=== PATIENT | male | born 1985 | race Caucasian/White ===

== ENCOUNTER 2016-12-20 12:36 | Emergency (ER) | payer MEDICAID ==
[~2016-12-20] VITALS: Ht 172.7 cm; Wt 81.6 kg
[~2016-12-20 12:36] MED LIST: IBUP-1724 PO
--- OUTSIDE RECORDS SUMMARY | 2016-12-20 12:41 | XMS REPORT | Continuity of Care Document ---
Author Author [facility] Organization [facility] Address Unknown Phone Unavailable Care Team Providers Care Instructional Design Technologist Name Role Phone Unknown, Unknown Primary Care Physician Unavailable Source Comments Some departments are not documenting in the electronic medical record. If you do not see the information that you expected, contact Release of Information in the Health Information Management department at [phone] for further assistance in locating additional records.[facility] Active Allergies and Adverse Reactions Allergen Noted Date Severity Reactions Comments Amoxicillin 12/09/2014 Low STOMACH UPSET Current Medications Prescription Sig. Disp. Refills Start End Date Status Date RANITIDINE HCL (ZANTAC Take by mouth. Active PO) ALLOPURINOL PO Take by mouth. 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 Social History Tobacco Use Types Packs/Day Years Used Date Heavy Tobacco Smoker Cigarettes 1.5 14 Tobacco Cessation: Ready to Quit: Yes Comments: Alcohol Use Drinks/Week oz/Week Comments No Last Filed Vital Signs Vital Sign Reading Time Taken Blood Pressure 127/70 03/06/2015 2:55 PM CDT Pulse 72 03/06/2015 2:55 PM CDT Temperature 36.6 C (97.9 F) 03/06/2015 2:55 PM CDT Respiratory Rate 16 03/06/2015 2:55 PM CDT Height 1.702 m (5' 7.01") 03/06/2015 2:55 PM CDT Weight 74.299 kg (163 lb 12.8 03/06/2015 2:55 PM CDT oz) Body Mass Index 25.65 03/06/2015 2:55 PM CDT Oxygen Saturation 100% 03/06/2015 2:55 PM CDT Plan of Care Health Maintenance Due Date Last Done Comments Physical (Comprehensive) 1994 Exam Pertussis Vaccine 1998 Tetanus Vaccine 2004 Influenza Vaccine 05/20/2017 Results from Last 3 Months Not on file
--- OUTSIDE RECORDS SUMMARY | 2016-12-20 12:41 | XMS REPORT | Continuity of Care Document ---
Author Author [facility] Address Unknown Phone Unavailable Care Team Providers Care Fabrication Welder Name Role Phone [employer] Unavailable Unavailable Problems Problem Status Onset Date Classification Date Reported Comments Source Bradycardia (disorder) Active 11/05/2013 Problem 2013 [facility]iology Services, [facility], [facility]. Deep venous thrombosis (disorder) Active Problem 2013 [facility] Services, [facility], [facility]. 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. Polysubstance abuse (disorder) Active Problem 11/09/2013 Cardiology Services, [facility], [facility]. Superior vena cava syndrome (disorder) Active Problem [facility] Services, [facility], [facility]. Medications Allergies, Adverse Reactions, Alerts Substance Category Reaction Severity Reaction type Status Date Reported Comments Source NKA drug allergy Allergy Active [facility], [facility], [facility]. Immunizations Results Vital Signs Encounters Location Location Details Encounter Type Encounter Number Reason For Visit Attending Provider ADM Date DC Date Status Source [facility] [id number] Inpatient [id number] Jayce Krishnamurthyid 10/26/2013 11/16/2013 Active [facility], [facility]. [facility] [id number] Clinic ( Outpatient) [id number] . [facility] 11/05/2013 [facility] Procedures Plan of Care Social History Assessment and Plan Family History Value Date Source Advance Directives Order Name Results Value Date Source
--- OUTSIDE RECORDS SUMMARY | 2016-12-20 12:41 | XMS REPORT | Continuity of Care Document ---
Author Author [facility] Organization [facility] Address Unknown Phone Unavailable Support Name Relationship Address Phone SAFIA ESPINO MD Caregiver [address] [place] [address] [place] [address] AMY JOHNSON MD Caregiver [address] [place] [address] [place] [phone] JAVID ARROYO Next Of Kin [address] [place] [address] NOK* Insurance Providers Payer Name Policy Number Subscriber Name Relationship [facility] [id number] Pato Candelaria 20 Self Advance Directives Directive Response Recorded Date/Time Advanced Directives Type None 02/27/14 4:45pm Ordered Resuscitation Status Full Code 04/10/14 12:48pm Chief Complaint and Reason for Visit Chief Complaint CHEST PAIN Reason for Visit Chest pain Chest pain Chest pain Non-Hodgkin lymphoma Deep vein thrombosis (DVT) Superior vena cava syndrome Methamphetamine abuse Inadequate anticoagulation Problems Medical Problems Problem Onset Date Status Infected dental carries Unknown Active Nausea & vomiting Unknown Active Nausea & vomiting Unknown Active Nausea & vomiting Unknown Active Hypokalemia Unknown Active Nausea & vomiting Unknown Active Leg cramps Unknown Active Leg cramps Unknown Active Chest pain Unknown Active Chest pain Unknown Active Chest pain Unknown Active Non-Hodgkin lymphoma Unknown Active Deep vein thrombosis (DVT) Unknown Active Superior vena cava syndrome Unknown Active Methamphetamine abuse Unknown Active Inadequate anticoagulation Unknown Active Medications Medication Dose Route Sig Days/Qty Instructions Order Date Discontinued Date Status Miscellaneous Information 07/16/12 11/22/13 Discontinued Warfarin Sodium 5 Mg PO DAILY 11/22/13 04/10/14 Discontinued Sertraline Hcl 50 Mg PO DAILY 01/05/14 Active Warfarin Sodium 7.5 Mg PO EVERY OTHER DAY 04/09/14 04/10/14 Discontinued Warfarin Sodium 5 Mg PO 04/10/14 Active Social History Social History Problem Response Recorded Date/Time Smoking Status Current every day smoker 02/27/2014 4:45pm When did patient START smoking? started smoking at age 16 04/10/2014 1:13am When did patient STOP smoking? still smoking 04/10/2014 1:13am Chewing Tobacco Status No 02/13/2014 10:15pm Hx Substance Use Y LAST USED 11/22/12, "MOSTLY METH" 04/10/2014 12:01am Hx Alcohol Use Y OCC 04/10/2014 12:01am Has the pt used tobacco in the last 12 months Yes 04/10/2014 1:13am Query Response Start Date Stop Date Smoking Status Former smoker Hospital Discharge Instructions Instructions: Care Instructions: Reason for Hospitalization: Chest Pain I was in the hospital because (patient own words): "chest pain" Discharge Diet: Regular Discharge Activity: As tolerated Follow Up Appointments: INR on Tuesday04/15/14-Results to Dr Martins DX: Medication use, Iatrogenic coagulopathy Dr Glass as schedualed Condition at time of discharge: Good Care Plan Discharge Patient: Goal: Understand discharge plan Patient Instructions: see patient instructions Care Plan Discharge Patient: Patient Instructions: see patient instructions 1.Clear dressing is to remain in place for 2 weeks. 2.Do not pick at it or scrub it while showering. 3.If the dressing begins to pull up, secure it with 4x4 gauze pad and tape. 4.You may shower; however, do not submerge yourself in water until the incision is completely healed. Mepilex 1.Dressing to remain in place until your follow up appointment. 2.If this dressing starts peeling up slightly, it may be reinforced, if it peels excessively, notify your surgeon's office. 3.You may shower with the dressing in place, but do not submerge in water 4.Do not allow water to seep under the dressing, if it should seep under, remove the dressing and notify your surgeon. Notify Physician If: Call your Surgeon if you have: 1.Chest pain, difficulty breathing, fever>100.5 degrees, chills, heart rate >100, confusion, or persistent nausea/vomitting. 2.Severe pain, swelling, redness, or warmth in either of your legs. 3.During office hours, call [phone] 4. After hours, please call [facility] at [phone], and have the liquid hydrogen plant operator page your Surgeon IN THE EVENT OF AN EMERGENCY, seek medical care at the nearest Emergency Room Condition at time of discharge: Good Condition at time of discharge: Good Plan of Care Discharge Date 04/10/14 7:00pm Disposition 01 DISCHARGED HOME, SELF-CARE Instructions/Education Provided Angina Prescriptions See Medications Section Functional Status Query Response Date Recorded Physical Hygiene Self April 10, 2014 6:04pm Disabilities None April 10, 2014 6:04pm Devices Used None April 10, 2014 6:04pm Dressing Self April 10, 2014 6:04pm Ambulation Self April 10, 2014 6:04pm Diet Self April 10, 2014 6:04pm Mental Status Alert Oriented April 10, 2014 6:04pm Disabilities None April 10, 2014 6:04pm Devices Used None April 10, 2014 6:04pm Physical Hygiene Self April 10, 2014 6:04pm Dressing Self April 10, 2014 6:04pm Ambulation Self April 10, 2014 6:04pm Diet Self April 10, 2014 6:04pm Allergies, Adverse Reactions, Alerts Allergen Type Severity Reaction Status Last Updated Nickel Allergy Mild RASH Active 04/10/14 Immunizations Name Given Type Hx Influenza Vaccination No Historical Hx Pneumococcal Vaccination No Historical Hx Tetanus, Diptheria, Pertussis No Historical Hx Influenza Vaccination No Historical Hx Tetanus Diptheria No Historical Hx Tetanus, Diptheria, Pertussis No Historical Vital Signs Acute Vital Signs Vital Response Date/Time Temperature (Fahrenheit) 96.8 deg F (96.8 - 99.1) Pulse Rate (adult) 80 bpm (60 - 100) Respiratory Rate 16 breaths/min (10 - 20) Height 5 ft 8 in Weight 154 lb Body Mass Index 23.0 kg/m^2 Results Test Source Date Result Interp. Ref. Range Comments Activated Partial Thromboplast Time April 10, 2014 12:08am 33.5 SEC N 24- 36 Alanine Aminotransferase (ALT/SGPT) April 10, 2014 12:08am 35 U/L N 21- 72 Albumin April 10, 2014 12:08am 3.6 G/DL N 3.5-5.0 Albumin/Globulin Ratio April 10, 2014 12:08am 1.5 RATIO N 1.1-2.2 Alkaline Phosphatase April 10, 2014 12:08am 72 U/L N 38-126 Anion Gap April 10, 2014 12:08am 11 MEQ/L N 5-15 Anisocytosis December 05, 2013 9:10am 1+ - Aspartate Amino Transf (AST/SGOT) April 10, 2014 12:08am 19 U/L N 17-59 BUN/Creatinine Ratio April 10, 2014 12:08am 13 RATIO N 6-26 Band Neutrophils # February 13, 2014 10:57pm 0.5 T/MM3 - Band Neutrophils % February 13, 2014 10:57pm 8.0 % H 0-6 Basophils # (Auto) April 10, 2014 12:08am 0.0 T/MM3 N 0-0.2 Basophils # (Manual) December 28, 2013 9:39am 0.1 T/MM3 N 0-0.2 Basophils % (Manual) December 28, 2013 9:39am 1.0 % N 0-2 Basophils (%) (Auto) April 10, 2014 12:08am 0.7 % N 0-2 Blood Urea Nitrogen April 10, 2014 12:08am 10.0 MG/DL N 9-20 Calcium Level April 10, 2014 12:08am 8.8 MG/DL N 8.4-10.2 Calculated Osmolality April 10, 2014 12:08am 273 MOSM/KG N 261-280 Carbon Dioxide Level April 10, 2014 12:08am 28 MEQ/L N 22-30 Chloride Level April 10, 2014 12:08am 103 MEQ/L N 98-107 Cholesterol Level April 06, 2013 5:30pm 175 MG/DL N 132-199 Cholesterol/HDL Ratio April 06, 2013 5:30pm 3.5 RATIO N 0-5.0 Creatinine April 10, 2014 12:08am 0.8 MG/DL N 0.8-1.5 D-Dimer April 09, 2014 5:57pm 36 NG/ML N 0-230 <224 NG/ML=PRESUMPTIVE NEGATIVE FOR PE OR DVT>224 NG/ML=ADDITIONAL EVALUATION FOR PE OR DVT RECOMMENDED Eosinophils # (Auto) April 10, 2014 12:08am 0.5 T/MM3 N 0-0.5 Eosinophils # (Manual) February 13, 2014 10:57pm 0.2 T/MM3 N 0-0.5 Eosinophils % (Manual) February 13, 2014 10:57pm 3.0 % N 0-4 Eosinophils (%) (Auto) April 10, 2014 12:08am 9.8 % H 0-4 Globulin April 10, 2014 12:08am 2.4 G/DL N 2.4-3.6 Glucose Level April 10, 2014 12:08am 115 MG/DL H 75-110 Hematocrit April 10, 2014 12:08am 41.2 % N 41-53 Hemoglobin April 10, 2014 12:08am 14.3 GM/DL N 13.5-17.5 LDL Cholesterol, Calculated April 06, 2013 5:30pm 112.6 N 66-159 Lactate Dehydrogenase March 20, 2014 2:45pm 440 U/L N 313-618 Lipase April 09, 2014 5:57pm 70 U/L N 23-300 Lymphocytes # (Auto) April 10, 2014 12:08am 0.5 T/MM3 L 1-4.8 Lymphocytes # (Manual) February 13, 2014 10:57pm 0.1 T/MM3 L 1-4.8 Lymphocytes % (Manual) February 13, 2014 10:57pm 2.0 % L 23-45 Lymphocytes (%) (Auto) April 10, 2014 12:08am 11.7 % L 23-45 Magnesium Level March 20, 2014 2:45pm 2.0 MG/DL N 1.6-2.3 Mean Corpuscular Hemoglobin April 10, 2014 12:08am 32.4 UUG N 26-34 Mean Corpuscular Hemoglobin Concent April 10, 2014 12:08am 34.7 GM/DL N 31-37 Mean Corpuscular Volume April 10, 2014 12:08am 93.2 UM3 N 80-100 Mean Platelet Volume April 10, 2014 12:08am 9.2 UM3 L 9.4-12.4 Metamyelocytes # December 28, 2013 9:39am 0.2 T/MM3 - Metamyelocytes % December 28, 2013 9:39am 2.0 % H 0-0 Monocytes # (Auto) April 10, 2014 12:08am 0.8 T/MM3 N 0-0.8 Monocytes # (Manual) February 13, 2014 10:57pm 0.2 T/MM3 N 0-0.8 Monocytes % (Manual) February 13, 2014 10:57pm 3.0 % N 0-9.0 Monocytes (%) (Auto) April 10, 2014 12:08am 18.3 % H 0-9.0 Myelocytes # December 28, 2013 9:39am 0.1 T/MM3 - Myelocytes % December 28, 2013 9:39am 1.0 % H 0-0 Neutrophils # (Auto) April 10, 2014 12:08am 2.7 T/MM3 N 1.8-7.7 Neutrophils # (Manual) February 13, 2014 10:57pm 5.5 T/MM3 N 1.8-7.7 Neutrophils % (Manual) February 13, 2014 10:57pm 84.0 % H 33-66 Neutrophils (%) (Auto) April 10, 2014 12:08am 59.3 % N 33-66 Platelet Count April 10, 2014 12:08am 272 T/MM3 N 130-400 Potassium Level April 10, 2014 12:08am 3.4 MEQ/L L 3.6-5 Prothromb Time International Ratio April 10, 2014 12:08am 1.42 H 0.81- 1.09 THERAPUTIC RANGE=2.00-3.00 FOR ANTI-THROMBOSIS THERAPUTIC RANGE=2.50- 3.50 FOR IMPLANTED VALVE RDW Standard Deviation April 10, 2014 12:08am 44.9 FL N 36.9-50.2 Red Blood Count April 10, 2014 12:08am 4.42 M/MM3 L 4.50-5.90 Sodium Level April 10, 2014 12:08am 142 MEQ/L N 134-144 Total Bilirubin April 10, 2014 12:08am 0.40 MG/DL N 0.20-1.30 Total Protein April 10, 2014 12:08am 6.0 G/DL L 6.3-8.2 Triglycerides Level April 06, 2013 5:30pm 62 MG/DL N 40-160 Troponin I April 10, 2014 11:45am 0.087 ng/ml N 0-0.12 Uric Acid March 20, 2014 2:45pm 6.2 MG/DL N 3.5-8.5 Urine Bacteria February 27, 2014 3:45pm None seen - Has specimen been collected/obtained? Y Urine Bilirubin February 27, 2014 3:45pm Negative - Has specimen been collected/obtained? Y Urine Blood February 27, 2014 3:45pm Negative - Has specimen been collected/obtained? Y Urine Collection Type February 27, 2014 3:45pm Voided-not cc-midstr - Has specimen been collected/obtained? Y Urine Color February 27, 2014 3:45pm Yellow - Has specimen been collected /obtained? Y Urine Glucose (UA) February 27, 2014 3:45pm Negative - Has specimen been collected/obtained? Y Urine Ketones February 27, 2014 3:45pm Negative - Has specimen been collected/obtained? Y Urine Leukocyte Esterase February 27, 2014 3:45pm Negative - Has specimen been collected/obtained? Y Urine Nitrite February 27, 2014 3:45pm Negative - Has specimen been collected/obtained? Y Urine Protein February 27, 2014 3:45pm Negative - Has specimen been collected/obtained? Y Urine RBC February 27, 2014 3:45pm None seen /HPF - Has specimen been collected/obtained? Y Urine Specific [place] February 27, 2014 3:45pm >=1.030 H - Has specimen been collected/obtained? Y Urine Turbidity February 27, 2014 3:45pm Clear - Has specimen been collected/obtained? Y Urine Urobilinogen February 27, 2014 3:45pm 0.2 EU/DL - Has specimen been collected/obtained? Y Urine WBC February 27, 2014 3:45pm None seen /HPF - Has specimen been collected/obtained? Y Urine pH February 27, 2014 3:45pm 6.0 - Has specimen been collected/ obtained? Y VLDL Cholesterol April 06, 2013 5:30pm 12.4 MG/DL N 0-28 White Blood Count April 10, 2014 12:08am 4.6 T/MM3 N 4.5-11.0 Chemistry Specimen Hemolysis April 10, 2014 11:45am < 15 0-25 0-25: No Hemolysis.26-70: Slight Hemolysis - can falsely elevate K and Urine Protein. 71-285: Moderate Hemolysis - can falsely elevate K, Troponin I, CA 19-9, PTH, CSF GLucose, and Urine Protein, and can falsely decrease Phenytoin. 286-999: Gross Hemolysis - can falsely elevate K, Troponin I, CA 19-9, PTH, CSF Glucose, and Urine Protine, and can falsely decrease Phenytoin. Recommend specimen recollection. Urinalysis Comment February 13, 2014 11:13pm Microscopic not ind. - Has specimen been collected/obtained? Y Lab Scanned Report March 20, 2014 9:16pm LAB TEST FORM REQUEST [id number] - HDL Cholesterol Direct April 06, 2013 5:30pm 50 MG/DL N 40-60 Turbidity April 10, 2014 12:08am < 20 0-20 Glomerular Filtration Rate Calc April 10, 2014 12:08am 117 - Immature Granulocyte # (Auto) April 10, 2014 12:08am 0.01 T/MM3 N 0.00- 0.03 Immature Granulocyte % (Auto) April 10, 2014 12:08am 0.2 % N 0.0-0.5 Venous Blood Lactate January 19, 2014 1:45am 0.8 MMOL/L N 0.6-2.2 Icterus Index April 10, 2014 12:08am < 2 0-7 [id number]-Ugb-Z-Type Natriuretic Peptide April 10, 2014 12:08am 48 PG/ML N 0- 175 Rule in cut points: <50 years old=450; 50-75 years old=900; >75 years old=1800; When utilizing ProBNP rule-in cut points, adjustment for impaired renal function is typically not required. Blood Culture Blood January 19, 2014 1:45am NO GROWTH AFTER 5 DAYS Name: PATO CANDELARIA Unit #: [id number] : 1985 Sex: M Loc / Svc: SRG DOS: 04/09/14 Signed Report #: [id number] DIAGNOSTIC IMAGING REPORT TYPE OF EXAM: CHEST 1 VIEW Dictated By: NEIL ANGULO MD INDICATION: ITS.REASON: CHEST PAIN CHEST 1 VIEW: Comparison: CT chest abdomen and pelvis dated April 08, 2014 and chest x-ray dated February 13, 2014 FINDINGS: The lungs are clear. There is no abnormal airspace opacity, pleural effusion or pneumothorax identified. The heart size, pulmonary vasculature and mediastinum are within normal limits. SVC stent. Right subclavian central venous catheter remains in place. No significant skeletal abnormality is seen. IMPRESSION: No acute cardiopulmonary abnormality. . Procedures Procedure Status Date Provider(s) DRAW BLOOD OFF VENOUS DEVICE completed 04/09/14 AMY JOHNSON MD Encounters Encounter Location Date/Time Discharged Inpatient [facility] 04/10/14 12:20am Departed Emergency Room [facility] 04/09/14 5:30pm Registered Clinic [facility] 04/08/14 7:59am Discharged Recurring [facility] 03/20/14 2:10pm Registered Clinic [facility] 03/18/14 12:52pm Departed Clinic [facility] 02/27/14 2:40pm Registered Clinic [facility] 02/21/14 2:14pm Registered Clinic [facility] 02/14/14 1:32pm Departed Emergency Room [facility] 02/13/14 10:07pm Registered Clinic [facility] 02/10/14 9:24pm Registered Clinic [facility] 02/06/14 4:51pm Registered Clinic [facility] 02/05/14 8:19am Discharged Recurring [facility] 01/16/14 9:36am Discharged Recurring [facility] 12/14/13 9:29am Recent Diagnosis Chest pain Chest pain Chest pain Non-Hodgkin lymphoma Deep vein thrombosis (DVT) Superior vena cava syndrome Methamphetamine abuse Inadequate anticoagulation
--- OUTSIDE RECORDS SUMMARY | 2016-12-20 12:41 | XMS REPORT | Referral Summary ---
Author Author [facility] Organization [facility] Address Unknown Phone Unavailable Care Team Providers Care Keyboard Specialist Name Role Phone No PCP, States Primary Care Physician [phone] Encounter VC Date(s): 07/27/16 - 07/27/16 [facility] [address] [place] [address] FELICIA Samuel [address] Discharge Diagnosis: History of lymphoma Discharge Disposition: 01-Home or Self Care Attending Physician: Rolly Dean MD Admitting Physician: Rolly Dean MD Referring Physician: Amol Reese MD Vital Signs Most recent to 1 oldest [Reference Range]: Temperature Tympanic 36.6 degC [36.6-38.1 degC] (07/27/16 1:04 PM) Blood Pressure 114/80 mmHg [90-140/60-90 mmHg] (07/27/16 1:04 PM) Problem List Condition Effective Dates Status Health Status Informant Lymphoma, large Active cell(Confirmed) Allergies, Adverse Reactions, Alerts No Known Allergies Medications No Known Medications Results No data available for this section Immunizations No data available for this section Procedures Procedure Date Related Diagnosis Body Site Insertion of Port-a-cath Social History Social History Type Response Smoking Status Current every day smoker Assessment and Plan Extracted from: Title: Office Visit Note Author: Rolly Dean MD Date: 07/27/16 Assessment/Plan 1.History of lymphoma Ordered: Office Visit Level 4 New [address] Plan: Explantation/removal [id number] I did review the patient's chart including office note performed by his oncologist fromJuly 14, 2016. I informed the patient that I would recommend at this point timescheduling him for removal of his power port catheter. I did discusswhat this procedure would entail and its associated risk which included but was not inclusive ofbleeding and/or infection. Patient understood and was scheduled.
--- OUTSIDE RECORDS SUMMARY | 2016-12-20 12:41 | XMS REPORT | Continuity of Care Document ---
Author Author [facility] Organization [facility] Address Unknown Phone Unavailable Allergies Medications Problems Date Dx Coded Attending Type Code Diagnosis Diagnosed By 06/03/2015 Amol Reese MD, I Final 202.80 OTHER MALIGNANT LYMPHOMAS, UNSPECIFIED SITE, EXTRANODAL AND SOLID ORGAN SIT 06/03/2015 Amol Reese MD, I Final 429.3 CARDIOMEGALY 06/03/2015 Amol Reese MD, I Final 794.2 NONSPECIFIC ABNORMAL RESULTS OF FUNCTION STUDY OF PULMONARY SYSTEM 06/03/2015 Amol Reese MD, I Final V59.02 STEM CELL DONOR 06/03/2015 Amol Reese MD, I Reason V72.81 PREOPERATIVE CARDIOVASCULAR EXAMINATION 06/03/2015 Amol Reese MD, I Final V72.82 PREOPERATIVE RESPIRATORY EXAMINATION 06/03/2015 Amol Reese MD, I Final V72.83 OTHER SPECIFIED PREOPERATIVE EXAMINATION Procedures Results Encounters ACCT No. Visit Date/Time Discharge Status Pt. Type Provider Facility Loc./Unit Complaint [id number] 05/30/2015 07:27:00 2014 23:59:00 DIS Outpatient Amol Reese MD, I [facility] Diag Rad Non Hodgkins Lymphoma 202.80
--- OUTSIDE RECORDS SUMMARY | 2016-12-20 12:42 | XMS REPORT | Continuity of Care Document ---
Author Author [facility] Organization [facility] Address Unknown Phone Unavailable Support Name Relationship Address Phone SHABANA PEREA MD Caregiver [address] [place] [address] [place] [address] AMY JOHNSON MD Caregiver [address] [place] [address] [place] [phone] JAVID ARROYO Next Of Kin [address] [place] [address] NOK* Insurance Providers Payer Name Policy Number Subscriber Name [id number] Pato Candelaria 20 Self Advance Directives Directive Response Recorded Date/Time Advanced Directives Type None 02/27/14 4:45pm Problems Medical Problems Problem Onset Date Status Infected dental carries Unknown Active Nausea & vomiting Unknown Active Nausea & vomiting Unknown Active Nausea & vomiting Unknown Active Hypokalemia Unknown Active Nausea & vomiting Unknown Active Leg cramps Unknown Active Leg cramps Unknown Active Medications Medication Dose Route Sig Days/Qty Instructions Order Date Discontinued Date Status Miscellaneous Information 07/16/12 11/22/13 Discontinued Warfarin Sodium 5 Mg PO DAILY 11/22/13 Active Sertraline Hcl 50 Mg PO 01/05/14 Active Warfarin Sodium 7.5 Mg PO EVERY OTHER DAY 04/09/14 Active Social History Social History Problem Response Recorded Date/Time Smoking Status Current every day smoker 02/27/2014 4:45pm Chewing Tobacco Status No 02/13/2014 10:15pm Hx Substance Use Y LAST USED 11/22/12, "MOSTLY METH" 04/09/2014 5:57pm Hx Alcohol Use Y OCC 04/09/2014 5:57pm Has the pt used tobacco in the last 12 months Yes 02/27/2014 4:45pm Query Response Start Date Stop Date Smoking Status Former smoker Hospital Discharge Instructions No hospital discharge instructions. Plan of Care No plan of care. Functional Status Query Response Date Recorded Physical Hygiene Self April 09, 2014 5:57pm Disabilities None April 09, 2014 5:57pm Devices Used None April 09, 2014 5:57pm Dressing Self April 09, 2014 5:57pm Ambulation Self April 09, 2014 5:57pm Diet Self April 09, 2014 5:57pm Mental Status Alert April 09, 2014 5:57pm Disabilities None April 09, 2014 5:57pm Devices Used None April 09, 2014 5:57pm Physical Hygiene Self April 09, 2014 5:57pm Dressing Self April 09, 2014 5:57pm Ambulation Self April 09, 2014 5:57pm Diet Self April 09, 2014 5:57pm Allergies, Adverse Reactions, Alerts Allergen Type Severity Reaction Status Last Updated No Known Allergies Active 04/09/14 Immunizations Name Given Type Hx Influenza Vaccination No Historical Hx Pneumococcal Vaccination No Historical Hx Tetanus, Diptheria, Pertussis No Historical Hx Influenza Vaccination No Historical Hx Tetanus Diptheria No Historical Hx Tetanus, Diptheria, Pertussis No Historical Vital Signs Acute Vital Signs Vital Response Date/Time Temperature (Fahrenheit) 96.4 deg F (96.8 - 99.1) Temperature (Calculated Celsius) 35.25373 degrees C (36.0 - 37.3) Pulse Rate (adult) 84 bpm (60 - 100) Respiratory Rate 16 breaths/min (10 - 20) O2 Sat by Pulse Oximetry 95 % (90 - 100) Blood Pressure 135/84 mm Hg Height 5 ft 8 in Weight 158 lb Body Mass Index 24.0 kg/m^2 Results Test Source Date Result Interp. Ref. Range Comments Activated Partial Thromboplast Time April 09, 2014 5:57pm 34.3 SEC N 24- 36 Alanine Aminotransferase (ALT/SGPT) April 09, 2014 5:57pm 33 U/L N 21-72 Albumin April 09, 2014 5:57pm 3.9 G/DL N 3.5-5.0 Albumin/Globulin Ratio April 09, 2014 5:57pm 1.6 RATIO N 1.1-2.2 Alkaline Phosphatase April 09, 2014 5:57pm 72 U/L N 38-126 Anion Gap April 09, 2014 5:57pm 12 MEQ/L N 5-15 Anisocytosis December 05, 2013 9:10am 1+ - Aspartate Amino Transf (AST/SGOT) April 09, 2014 5:57pm 21 U/L N 17-59 BUN/Creatinine Ratio April 09, 2014 5:57pm 11 RATIO N 6-26 Band Neutrophils # February 13, 2014 10:57pm 0.5 T/MM3 - Band Neutrophils % February 13, 2014 10:57pm 8.0 % H 0-6 Basophils # (Auto) April 09, 2014 5:57pm 0.0 T/MM3 N 0-0.2 Basophils # (Manual) December 28, 2013 9:39am 0.1 T/MM3 N 0-0.2 Basophils % (Manual) December 28, 2013 9:39am 1.0 % N 0-2 Basophils (%) (Auto) April 09, 2014 5:57pm 0.5 % N 0-2 Blood Urea Nitrogen April 09, 2014 5:57pm 8.0 MG/DL L 9-20 Calcium Level April 09, 2014 5:57pm 8.9 MG/DL N 8.4-10.2 Calculated Osmolality April 09, 2014 5:57pm 273 MOSM/KG N 261-280 Carbon Dioxide Level April 09, 2014 5:57pm 27 MEQ/L N 22-30 Chemistry Specimen Hemolysis April 09, 2014 5:57pm < 15 0-25 0-25: No Hemolysis.26-70: Slight [...] can falsely decrease Phenytoin. Recommend specimen recollection. Chloride Level April 09, 2014 5:57pm 103 MEQ/L N 98-107 Cholesterol Level April 06, 2013 5:30pm 175 MG/DL N 132-199 Cholesterol/HDL Ratio April 06, 2013 5:30pm 3.5 RATIO N 0-5.0 Creatinine April 09, 2014 5:57pm 0.7 MG/DL L 0.8-1.5 D-Dimer April 09, 2014 5:57pm 36 NG/ML N 0-230 <224 NG/ML=PRESUMPTIVE NEGATIVE FOR PE OR DVT>224 NG/ML=ADDITIONAL EVALUATION FOR PE OR DVT RECOMMENDED Eosinophils # (Auto) April 09, 2014 5:57pm 0.4 T/MM3 N 0-0.5 Eosinophils # (Manual) February 13, 2014 10:57pm 0.2 T/MM3 N 0-0.5 Eosinophils % (Manual) February 13, 2014 10:57pm 3.0 % N 0-4 Eosinophils (%) (Auto) April 09, 2014 5:57pm 10.2 % H 0-4 Globulin April 09, 2014 5:57pm 2.5 G/DL N 2.4-3.6 Glomerular Filtration Rate Calc April 09, 2014 5:57pm 136 - Glucose Level April 09, 2014 5:57pm 129 MG/DL H 75-110 HDL Cholesterol Direct April 06, 2013 5:30pm 50 MG/DL N 40-60 Hematocrit April 09, 2014 5:57pm 42.5 % N 41-53 Hemoglobin April 09, 2014 5:57pm 14.9 GM/DL N 13.5-17.5 Icterus Index April 09, 2014 5:57pm < 2 0-7 Immature Granulocyte # (Auto) April 09, 2014 5:57pm 0.01 T/MM3 N 0.00- 0.03 Immature Granulocyte % (Auto) April 09, 2014 5:57pm 0.2 % N 0.0-0.5 LDL Cholesterol, Calculated April 06, 2013 5:30pm 112.6 N 66-159 Lab Scanned Report March 20, 2014 9:16pm LAB TEST FORM REQUEST [id number] - Lactate Dehydrogenase March 20, 2014 2:45pm 440 U/L N 313-618 Lipase April 09, 2014 5:57pm 70 U/L N 23-300 Lymphocytes # (Auto) April 09, 2014 5:57pm 0.8 T/MM3 L 1-4.8 Lymphocytes # (Manual) February 13, 2014 10:57pm 0.1 T/MM3 L 1-4.8 Lymphocytes % (Manual) February 13, 2014 10:57pm 2.0 % L 23-45 Lymphocytes (%) (Auto) April 09, 2014 5:57pm 17.8 % L 23-45 Magnesium Level March 20, 2014 2:45pm 2.0 MG/DL N 1.6-2.3 Mean Corpuscular Hemoglobin April 09, 2014 5:57pm 32.5 UUG N 26-34 Mean Corpuscular Hemoglobin Concent April 09, 2014 5:57pm 35.1 GM/DL N 31 -37 Mean Corpuscular Volume April 09, 2014 5:57pm 92.6 UM3 N 80-100 Mean Platelet Volume April 09, 2014 5:57pm 9.1 UM3 L 9.4-12.4 Metamyelocytes # December 28, 2013 9:39am 0.2 T/MM3 - Metamyelocytes % December 28, 2013 9:39am 2.0 % H 0-0 Monocytes # (Auto) April 09, 2014 5:57pm 0.6 T/MM3 N 0-0.8 Monocytes # (Manual) February 13, 2014 10:57pm 0.2 T/MM3 N 0-0.8 Monocytes % (Manual) February 13, 2014 10:57pm 3.0 % N 0-9.0 Monocytes (%) (Auto) April 09, 2014 5:57pm 14.5 % H 0-9.0 Myelocytes # December 28, 2013 9:39am 0.1 T/MM3 - Myelocytes % December 28, 2013 9:39am 1.0 % H 0-0 Neutrophils # (Auto) April 09, 2014 5:57pm 2.5 T/MM3 N 1.8-7.7 Neutrophils # (Manual) February 13, 2014 10:57pm 5.5 T/MM3 N 1.8-7.7 Neutrophils % (Manual) February 13, 2014 10:57pm 84.0 % H 33-66 Neutrophils (%) (Auto) April 09, 2014 5:57pm 56.8 % N 33-66 Platelet Count April 09, 2014 5:57pm 269 T/MM3 N 130-400 Potassium Level April 09, 2014 5:57pm 3.1 MEQ/L L 3.6-5 Prothromb Time International Ratio April 09, 2014 5:57pm 1.51 H 0.81- 1.09 THERAPUTIC RANGE=2.00-3.00 FOR ANTI-THROMBOSIS THERAPUTIC RANGE=2.50- 3.50 FOR IMPLANTED VALVE RDW Standard Deviation April 09, 2014 5:57pm 45.2 FL N 36.9-50.2 Red Blood Count April 09, 2014 5:57pm 4.59 M/MM3 N 4.50-5.90 Sodium Level April 09, 2014 5:57pm 142 MEQ/L N 134-144 Total Bilirubin April 09, 2014 5:57pm 0.40 MG/DL N 0.20-1.30 Total Protein April 09, 2014 5:57pm 6.4 G/DL N 6.3-8.2 Triglycerides Level April 06, 2013 5:30pm 62 MG/DL N 40-160 Troponin I April 09, 2014 5:57pm 0.059 ng/ml N 0-0.12 Turbidity April 09, 2014 5:57pm < 20 0-20 Uric Acid March 20, 2014 2:45pm 6.2 MG/DL N 3.5-8.5 Urinalysis Comment February 13, 2014 11:13pm Microscopic not ind. - Has specimen been collected/obtained? Y Urine Bacteria February 27, 2014 3:45pm None [...] Has specimen been collected/obtained? Y Urine Specific [place] February 27, 2014 3:45pm >=1.030 H - [...] 06, 2013 5:30pm 12.4 MG/DL N 0-28 Venous Blood Lactate January 19, 2014 1:45am 0.8 MMOL/L N 0.6-2.2 White Blood Count April 09, 2014 5:57pm 4.3 T/MM3 L 4.5-11.0 Blood Culture Blood January 19, 2014 1:45am NO GROWTH AFTER 5 DAYS Procedures Procedure Status Date Provider(s) THER/PROPH/DIAG INJ IV PUSH completed 01/19/14 TX/PRO/DX INJ NEW DRUG ADDON completed 01/19/14 HYDRATE IV INFUSION ADD-ON completed 01/19/14 DRAW BLOOD OFF VENOUS DEVICE completed 01/19/14 AMY JOHNSON MD Encounters Encounter Location Date/Time Departed Emergency Room [facility] 04/09/14 5:30pm Registered [facility] 04/08/14 7:59am Registered [facility] 03/20/14 2:10pm Registered [facility] 03/18/14 12:52pm Departed [facility] 02/27/14 2:40pm Registered [facility] 02/27/14 12:39pm Registered [facility] 02/21/14 2:14pm Registered [facility] 02/14/14 1:32pm Departed Emergency Room [facility] 02/13/14 10:07pm Registered [facility] 02/10/14 9:24pm Registered Clinic [facility] 02/06/14 4:51pm Registered Clinic [facility] 02/05/14 8:19am Registered [facility] 01/21/14 10:40am Departed Emergency Room [facility] 01/19/14 12:47am Departed Clinic [facility] 01/16/14 11:12am Discharged Recurring [facility] 12/14/13 9:29am Recent Diagnosis
--- OUTSIDE RECORDS SUMMARY | 2016-12-20 12:42 | XMS REPORT | Continuity of Care Document ---
Author Author [facility] Organization [facility] Address Unknown Phone Unavailable Support Name Relationship Address Phone SAFIA ESPINO MD Caregiver [address] [place] [address] [place] [address] AMY JOHNSON MD Caregiver [address] [place] [address] [place] [phone] JAVID ARROYO Next Of Kin [address] [place] [address] NOK* Insurance Providers Payer Name Policy Number [facility]scriber [id number] Pato Candelaria 20 Self Advance Directives Directive [...] discharge plan Patient Instructions: see patient instructions Discharge Patient: Goal: Other Patient Instructions: see patient instructions see patient instructions Understand discharge plan Patient Instructions: see patient instructions Increase cardio excercise Patient Instructions: see patient instructions 1.Chest pain, difficulty breathing, fever>100.5 degrees, chills, heart rate >100, confusion, or persistent nausea/vomitting. 2.Severe pain, swelling, redness, or warmth in either of your legs. 3.During office hours, call [phone] 4. After hours, please call [facility] at [phone], and have the press operator meat page your Surgeon IN THE EVENT OF AN EMERGENCY, seek medical care at the nearest Emergency Room Condition at time of discharge: Good Care Plan Discharge Patient: Goal: Maximum functional status Patient Instructions: see patient instructions Plan of Care Discharge Date 04/10/14 7:00pm [...] Has specimen been collected/obtained? Y Urine Specific [place] February 27, 2014 3:45pm >=1.030 H - [...] 20, 2014 9:16pm LAB TEST FORM REQUEST [id number] - HDL Cholesterol Direct April 06, 2013 [...] April 10, 2014 12:08am < 2 0-7 MI-Cvp-J-Type Natriuretic Peptide April 10, 2014 12:08am 48 PG/ML N 0- 175 Rule in cut points: <50 years old=450; 50-75 years old=900; >75 years old=1800; When utilizing ProBNP rule-in cut points, adjustment for impaired renal function is typically not required. Blood Culture Blood January 19, 2014 1:45am NO GROWTH AFTER 5 DAYS Name: PATO CANDELARIA Unit #: [id number] : 1985 Sex: M Loc / Svc: SRG DOS: 04/09/14 Signed Report #: [id number] DIAGNOSTIC IMAGING REPORT TYPE OF EXAM: CHEST [...] abnormality. . Procedures Procedure Status Date Provider(s) THER/PROPH/DIAG INJ IV PUSH completed 01/19/14 TX/PRO/DX INJ NEW DRUG ADDON completed 01/19/14 HYDRATE IV INFUSION ADD-ON completed 01/19/14 DRAW BLOOD OFF VENOUS DEVICE completed 01/19/14 AMY JOHNSON MD DRAW BLOOD OFF VENOUS DEVICE completed 04/09/14 AMY JOHNSON MD Encounters Encounter Location Date/Time Discharged Inpatient [facility] 04/10/14 12:20am Departed Emergency Room [facility] 04/09/14 5:30pm Registered [facility] 04/08/14 7:59am Registered [facility] 03/20/14 2:10pm Registered [facility] 03/18/14 12:52pm Departed [facility] 02/27/14 2:40pm Discharged Recurring [facility] 02/27/14 12:39pm Registered [facility] 02/21/14 2:14pm Registered [facility] 02/14/14 1:32pm Departed Emergency Room [facility] 02/13/14 10:07pm Registered [facility] 02/10/14 9:24pm Registered [facility] 02/06/14 4:51pm Registered Clinic [facility] 02/05/14 8:19am Registered Clinic [facility] 01/21/14 10:40am Departed Emergency Room [facility] 01/19/14 12:47am Departed Clinic [facility] 01/16/14 11:12am Discharged Recurring [facility] 12/14/13 9:29am Recent Diagnosis Chest pain Chest pain Chest pain Non-Hodgkin lymphoma Deep vein thrombosis (DVT) Superior vena cava syndrome Methamphetamine abuse Inadequate anticoagulation
--- OUTSIDE RECORDS SUMMARY | 2016-12-20 12:42 | XMS REPORT | Continuity of Care Document ---
Author Author [facility] Organization [facility] Address Unknown Phone Unavailable Support Name Relationship Address Phone ALLEGRA PAULO Tressa Caregiver [phone] [place] [phone] Insurance Providers Payer Name Policy Number Subscriber Name Relationship Devan Taylor Correct [employer] [id number] Pato Candelaria 20 Self [employer] [id number] Pato Candelaria 20 Self Advance Directives Directive [...] abuse Unknown Active Inadequate anticoagulation Unknown Active Portacath in place Unknown Active Portacath in place Unknown Active Atrial fibrillation, new onset Unknown Active Tobacco abuse Unknown Active Medications Medication Dose Route Sig Days/Qty Instructions Order Date Discontinued Date Status Miscellaneous Information 07/16/12 11/22/13 Discontinued Warfarin Sodium 5 Mg PO DAILY 11/22/13 04/10/14 Discontinued Sertraline Hcl 50 Mg PO DAILY 01/05/14 10/28/14 Discontinued Warfarin Sodium 7.5 Mg PO EVERY OTHER DAY 04/09/14 04/10/14 Discontinued Warfarin Sodium 5 Mg PO 04/10/14 10/28/14 Discontinued Allopurinol 1 Tab PO DAILY 0 Qty 10/28/14 Active Aspirin 1 Tab PO DAILY 11/03/14 Active Social History Social History Problem Response Recorded Date/Time Chewing Tobacco Status No 02/13/2014 10:15pm Hx Substance Use Y LAST USED 11/22/12, "MOSTLY METH" 05/30/2014 11:47pm Hx Alcohol Use Y OCC 05/30/2014 11:47pm Has the pt used tobacco in the last 12 months Yes 11/03/2014 8:28pm Tobacco Usage smoke 11/01/2014 3:08pm Query Response Start Date Stop Date Smoking Status Current every day smoker Hospital Discharge Instructions Instructions: Care Instructions: Reason for Hospitalization: Cellulitis of right LW I was in the hospital because (patient own words): "I DON'T KNOW" Discharge Diet: no added salt Discharge Activity: As tolerated Follow Up Appointments: Dr Iqbal in 1 week CAMILO in 1 week Patient Instructions: Elevate LE when at rest Condition at time of discharge: Good Notify Physician If: Fever > 101 Breathlessness Severe pain in hip Fall Condition at time of discharge: Good Bilirubin Level: 12.2 Plan of Care Discharge Date 11/01/14 4:18pm Prescriptions See Medications Section Functional Status Query Response Date Recorded Physical Hygiene Self May 30, 2014 11:47pm Physical Hygiene Self May 30, 2014 11:47pm Allergies, Adverse Reactions, Alerts Allergen Type Severity Reaction Status Last Updated Nickel Allergy Mild RASH Active 11/03/14 Immunizations Name Given Type Hx Influenza Vaccination No Historical Hx Pneumococcal Vaccination No Historical Hx Tetanus, Diptheria, Pertussis No Historical Hx Influenza Vaccination No Historical Hx Tetanus Diptheria No Historical Hx Tetanus, Diptheria, Pertussis No Historical TST-PPD intradermal 10/30/14 Administered TST-PPD intradermal 10/30/14 Administered TST-PPD intradermal 10/30/14 Administered TST-PPD intradermal 10/30/14 Administered Vital Signs Acute Vital Signs Vital Response Date/Time Temperature (Fahrenheit) 98.2 deg F (96.8 - 99.1) Temperature (Calculated Celsius) 36.58470 degrees C (36.0 - 37.3) Pulse Rate (adult) 95 bpm (60 - 100) Respiratory Rate 16 breaths/min (10 - 20) O2 Sat by Pulse Oximetry 99 % (90 - 100) Oxygen Delivery Method Room Air Blood Pressure 129/80 mm Hg Blood Pressure Source Automatic Cuff Results Test Source Date Result Interp. Ref. Range Comments Activated Partial Thromboplast Time October 28, 2014 10:52am 36.2 SEC H 24-36 Alanine Aminotransferase (ALT/SGPT) November 21, 2014 9:15am 46 U/L N 21- 72 Albumin November 21, 2014 9:15am 4.2 G/DL N 3.5-5.0 Albumin/Globulin Ratio November 21, 2014 9:15am 1.6 RATIO N 1.1-2.2 Alkaline Phosphatase November 21, 2014 9:15am 65 U/L N 38-126 Anion Gap November 21, 2014 9:15am 14 MEQ/L N 5-15 Anisocytosis December 05, 2013 9:10am 1+ - Aspartate Amino Transf (AST/SGOT) November 21, 2014 9:15am 23 U/L N 17-59 BUN/Creatinine Ratio November 21, 2014 9:15am 17 RATIO N 6-26 Band Neutrophils # November 21, 2014 9:15am 0.5 T/MM3 - Band Neutrophils % November 21, 2014 9:15am 10.0 % H 0-6 Basophils # (Auto) October 31, 2014 1:56pm 0.0 T/MM3 N 0-0.2 Basophils # (Manual) November 19, 2014 1:50pm 0.1 T/MM3 N 0-0.2 Basophils % (Manual) November 19, 2014 1:50pm 1.0 % N 0-2 Basophils (%) (Auto) October 31, 2014 1:56pm 0.2 % N 0-2 Blood Urea Nitrogen November 21, 2014 9:15am 12.0 MG/DL DN 9-20 Calcium Level November 21, 2014 9:15am 9.2 MG/DL N 8.4-10.2 Calculated Osmolality November 21, 2014 9:15am 278 MOSM/KG N 261-280 Carbon Dioxide Level November 21, 2014 9:15am 26 MEQ/L N 22-30 Chemistry Specimen Hemolysis November 21, 2014 9:15am < 15 0-25 0-25: No Hemolysis.26-70: Slight [...] decrease Phenytoin. Recommend specimen recollection. Chloride Level November 21, 2014 9:15am 104 MEQ/L N 98-107 Cholesterol Level April 06, 2013 5:30pm 175 MG/DL N 132-199 Cholesterol/HDL Ratio April 06, 2013 5:30pm 3.5 RATIO N 0-5.0 Creatinine November 21, 2014 9:15am 0.7 MG/DL L 0.8-1.5 D-Dimer October 28, 2014 10:52am < 150 NG/ML 0-230 <230 NG/ML D-DU= PRESUMPTIVE NEGATIVE FOR PE OR DVT>230 NG/ML D-DU=ADDITIONAL EVAL FOR PE OR DVT RECOMMENDED Eosinophils # (Auto) October 31, 2014 1:56pm 0.0 T/MM3 N 0-0.5 Eosinophils # (Manual) November 19, 2014 1:50pm 0.1 T/MM3 N 0-0.5 Eosinophils % (Manual) November 19, 2014 1:50pm 1.0 % N 0-4 Eosinophils (%) (Auto) October 31, 2014 1:56pm 0.4 % N 0-4 Fibrinogen October 28, 2014 10:52am 274 MG/DL N 135-357 Globulin November 21, 2014 9:15am 2.6 G/DL N 2.4-3.6 Glomerular Filtration Rate Calc November 21, 2014 9:15am 135 - Glucose Level November 21, 2014 9:15am 122 MG/DL H 75-110 HDL Cholesterol Direct April 06, 2013 5:30pm 50 MG/DL N 40-60 Helicobacter pylori Antibodies November 04, 2014 2:10pm Negative - Hematocrit November 21, 2014 9:15am 39.3 % L 41-53 Hemoglobin November 21, 2014 9:15am 13.2 GM/DL L 13.5-17.5 Hepatitis B Core Total Antibody October 21, 2014 1:35pm Negative - Hepatitis B Core Ab Total performed at [facility], [address] [place] [address] Software Project Lead Aster Marvin DO Hepatitis B Surface Ab Concentrat October 21, 2014 1:35pm Negative - Hepatitis B Surface Antigen October 21, 2014 1:35pm Negative - Hepatitis C Antibody October 28, 2014 8:30am Negative - Hepatitis C RNA (PCR) log10 October 28, 2014 8:30am Not applicable - This test is for monitoring of HCV positive patients only andshould not be used as a screening test for HCV infection. Hepatitis C RNA performed at [facility], [address] [place] [address] Software Project Lead Aster Marvin DO Hepatitis C Viral RNA October 28, 2014 8:30am Not detected IU/mL - Icterus Index November 21, 2014 9:15am < 2 0-7 Immature Granulocyte # (Auto) October 31, 2014 1:56pm 0.02 T/MM3 N 0.00 -0.03 Immature Granulocyte % (Auto) October 31, 2014 1:56pm 0.2 % N 0.0-0.5 LDL Cholesterol, Calculated April 06, 2013 5:30pm 112.6 N 66-159 Lab Scanned Report November 19, 2014 3:16pm LAB TEST FORM REQUEST - Lactate Dehydrogenase November 21, 2014 9:15am 432 U/L N 313-618 Lipase April 09, 2014 5:57pm 70 U/L N 23-300 Lymphocytes # (Auto) October 31, 2014 1:56pm 0.7 T/MM3 L 1-4.8 Lymphocytes # (Manual) November 21, 2014 9:15am 1.0 T/MM3 N 1-4.8 Lymphocytes % (Manual) November 21, 2014 9:15am 21.0 % L 23-45 Lymphocytes (%) (Auto) October 31, 2014 1:56pm 7.4 % L 23-45 Magnesium Level November 21, 2014 9:15am 1.8 MG/DL N 1.6-2.3 Mean Corpuscular Hemoglobin November 21, 2014 9:15am 31.7 UUG N 26-34 Mean Corpuscular Hemoglobin Concent November 21, 2014 9:15am 33.6 GM/DL N 31-37 Mean Corpuscular Volume November 21, 2014 9:15am 94.5 UM3 N 80-100 Mean Platelet Volume November 21, 2014 9:15am 9.5 UM3 N 9.4-12.4 Metamyelocytes # December 28, 2013 9:39am 0.2 T/MM3 - Metamyelocytes % December 28, 2013 9:39am 2.0 % H 0-0 Monocytes # (Auto) October 31, 2014 1:56pm 0.8 T/MM3 N 0-0.8 Monocytes # (Manual) November 21, 2014 9:15am 0.6 T/MM3 N 0-0.8 Monocytes % (Manual) November 21, 2014 9:15am 12.0 % H 0-9.0 Monocytes (%) (Auto) October 31, 2014 1:56pm 8.4 % N 0-9.0 Myelocytes # December 28, 2013 9:39am 0.1 T/MM3 - Myelocytes % December 28, 2013 9:39am 1.0 % H 0-0 NP-Mlp-R-Type Natriuretic Peptide April 10, 2014 12:08am 48 PG/ML N 0- 175 Rule in cut points: <50 years old=450; 50-75 years old=900; >75 years old=1800; When utilizing ProBNP rule-in cut points, adjustment for impaired renal function is typically not required. Neutrophils # (Auto) October 31, 2014 1:56pm 8.3 T/MM3 H 1.8-7.7 Neutrophils # (Manual) November 21, 2014 9:15am 2.7 T/MM3 N 1.8-7.7 Neutrophils % (Manual) November 21, 2014 9:15am 56.0 % N 33-66 Neutrophils (%) (Auto) October 31, 2014 1:56pm 83.4 % H 33-66 Nucleated Red Blood Cells November 21, 2014 9:15am 1 - Platelet Count November 21, 2014 9:15am 240 T/MM3 N 130-400 Potassium Level November 21, 2014 9:15am 3.7 MEQ/L N 3.6-5 Prothromb Time International Ratio April 10, 2014 12:08am 1.42 H 0.81- 1.09 THERAPUTIC RANGE=2.00-3.00 FOR ANTI-THROMBOSIS THERAPUTIC RANGE=2.50- 3.50 FOR IMPLANTED VALVE RDW Standard Deviation November 21, 2014 9:15am 40.8 FL N 36.9-50.2 Reactive Lymphocytes # November 21, 2014 9:15am 0.0 T/MM3 N 0-0 Reactive Lymphocytes % November 21, 2014 9:15am 1.0 % H 0-0 Red Blood Count November 21, 2014 9:15am 4.16 M/MM3 L 4.50-5.90 Red Cell Morphology Comment November 21, 2014 9:15am Normal - Sodium Level November 21, 2014 9:15am 144 MEQ/L N 134-144 Total Bilirubin November 21, 2014 9:15am 0.20 MG/DL N 0.20-1.30 Total Protein November 21, 2014 9:15am 6.8 G/DL N 6.3-8.2 Triglycerides Level April 06, 2013 5:30pm 62 MG/DL N 40-160 Troponin I April 10, 2014 11:45am 0.087 ng/ml N 0-0.12 Turbidity November 21, 2014 9:15am < 20 0-20 Uric Acid November 21, 2014 9:15am 3.3 MG/DL L 3.5-8.5 Urinalysis Comment November 19, 2014 1:50pm Microscopic not ind. - Urine Bacteria February 27, 2014 3:45pm None seen - Has specimen been collected/obtained? Y Urine Bilirubin November 19, 2014 1:50pm Negative - Urine Blood November 19, 2014 1:50pm Negative - Urine Collection Type November 19, 2014 1:50pm - Urine Color November 19, 2014 1:50pm Yellow - Urine Glucose (UA) November 19, 2014 1:50pm Negative - Urine Ketones November 19, 2014 1:50pm Negative - Urine Leukocyte Esterase November 19, 2014 1:50pm Negative - Urine Nitrite November 19, 2014 1:50pm Negative - Urine Protein November 19, 2014 1:50pm Negative - Urine RBC February 27, 2014 3:45pm None seen /HPF - Has specimen been collected/obtained? Y Urine Specific [place] November 19, 2014 1:50pm 1.010 L - Urine Turbidity November 19, 2014 1:50pm Clear - Urine Urobilinogen November 19, 2014 1:50pm 0.2 EU/DL - Urine WBC February 27, 2014 3:45pm None seen /HPF - Has specimen been collected/obtained? Y Urine pH November 19, 2014 1:50pm 6.0 - VLDL Cholesterol April 06, 2013 5:30pm 12.4 MG/DL N 0-28 Venous Blood Lactate January 19, 2014 1:45am 0.8 MMOL/L N 0.6-2.2 White Blood Count November 21, 2014 9:15am 4.9 T/MM3 N 4.5-11.0 Blood Culture Blood January 19, 2014 1:45am NO GROWTH AFTER 5 DAYS Name: PATO CANDELARIA Unit #: [id number] : 1985 Sex: M Loc / Svc: KRYSTYNA DOS: 10/28/14 Signed Report #: [id number] DIAGNOSTIC IMAGING REPORT TYPE OF EXAM: CTA PULMONARY EMBOLI Dictated By: BLAYNE DIXON MD Indication: ITS.REASON: 786.30 HEMOPTYSIS;453.87 ACUTE VENOUS EMBOLISM;202.80 LYMPHOMA CTA PULMONARY EMBOLI: Comparison: Compared to the previous study dated September 2014. Technique: Axial CT pulmonary angiographic phase images were performed through the chest after the administration of intravenous contrast. Coronal MIP reformats Contrast: Omnipaque 350 100 mL Findings: Pulmonary arteries: There are no central pulmonary artery filling defects demonstrated to suggest pulmonary embolism. There is again noted to be enlarged low-density mass measuring 3.5 x 1.9 cm in maximum dimensions in the anterior right suprahilar region. This compares to the prior study measuring 1.9 x 3.1 cm when measured in a similar fashion and therefore stable. The mass is again noted to abut the right middle lobe pulmonary artery branch without evidence for invasion. Right-sided chest port in place. The catheter extends through the superior vena cava stent and to the right atrial region. No developing pulmonary masses or pleural effusions. No pneumothorax. Osseous structures are normal. No suspicious or destructive osseous lesions. Impression: 1. No evidence for pulmonary embolism. 2. Stable right suprahilar/right upper lobe mass when compared with the previous study. No developing pulmonary nausea or masses. . Procedures Procedure Status Date Provider(s) CT SOFT TISSUE NECK W/DYE completed 09/04/14 CT THORAX W/DYE completed 09/04/14 CT ABD & PELV W/CONTRAST completed 09/04/14466929"INJECTION, HEPARIN SODIUM, (HEPARIN LOCK FLUSH), PER completed 003"INFUSION, NORMAL SALINE SOLUTION , 250 CC" completed 09/04/14719695"LOW OSMOLAR CONTRAST MATERIAL, 200-299 MG/ML IODINE C completed 003"LOW OSMOLAR CONTRAST MATERIAL, 300-399 MG/ML IODINE C completed COMPREHEN METABOLIC PANEL completed 09/06/14 LACTATE (LD) (LDH) ENZYME completed 09/06/14 ASSAY OF MAGNESIUM completed 09/06/14 COMPLETE CBC W/AUTO DIFF WBC completed 09/06/14 PET IMAGE W/CT SKULL-THIGH completed 09/11/14 [id number]"FLUORODEOXYGLUCOSE F-18 FDG, DIAGNOSTIC, PER STUDY DO completed GATED HEART PLANAR SINGLE completed 10/07/14 TTE W/DOPPLER COMPLETE completed 10/07/14 [id number] completed 10/07/14 COMPREHEN METABOLIC PANEL completed 10/18/14 LACTATE (LD) (LDH) ENZYME completed 10/18/14 COMPLETE CBC W/AUTO DIFF WBC completed 10/18/14 CT THORAX W/DYE completed 10/18/14 CT ABD & PELV W/CONTRAST completed 10/18/14 [id number]"INJECTION, HEPARIN SODIUM, (HEPARIN LOCK FLUSH), PER completed [id number]"INFUSION, NORMAL SALINE SOLUTION , 250 CC" completed 10/18/14 [id number]"LOW OSMOLAR CONTRAST MATERIAL, 300-399 MG/ML IODINE C completed ROUTINE VENIPUNCTURE completed 10/28/14 CT ANGIOGRAPHY CHEST completed 10/28/14 FIBRIN DEGRADATION QUANT completed 10/28/14 FIBRINOGEN ACTIVITY completed 10/28/14 THROMBOPLASTIN TIME PARTIAL completed 10/28/14 [id number]"INJECTION, HEPARIN SODIUM, (HEPARIN LOCK FLUSH), PER completed [id number]"INFUSION, NORMAL SALINE SOLUTION , 250 CC" completed 10/28/14 [id number]"LOW OSMOLAR CONTRAST MATERIAL, 300-399 MG/ML IODINE C completed ROUTINE VENIPUNCTURE completed 10/31/14 COMPREHEN METABOLIC PANEL completed 10/31/14 LACTATE (LD) (LDH) ENZYME completed 10/31/14 ASSAY OF MAGNESIUM completed 10/31/14 ASSAY OF BLOOD/URIC ACID completed 10/31/14 BL SMEAR W/DIFF WBC COUNT completed 10/31/14 COMPLETE CBC AUTOMATED completed 10/31/14 ELECTROCARDIOGRAM TRACING completed 10/31/14 INITIAL OBSERVATION CARE completed 10/31/14 INITIAL OBSERVATION CARE completed 10/31/14 ELECTROCARDIOGRAM TRACING completed 11/13/14 Encounters Encounter Location Date/Time Registered [facility] 11/21/14 9:59am Discharged [facility] 11/14/14 11:45am Registered [facility] 11/13/14 3:59pm Discharged Inpatient [facility] 10/31/14 6:21pm Registered [facility] 10/29/14 11:00am Registered [facility] 10/28/14 10:38am Registered Clinic [facility] 10/18/14 11:53am Registered Clinic [facility] 10/18/14 10:26am Registered Clinic [facility] 10/07/14 6:54am Registered Clinic [facility] 09/11/14 7:06am Registered Clinic [facility] 09/06/14 11:04am Registered Clinic [facility] 09/04/14 10:13am
[2016-12-20 12:43] VITALS: Ht 172.7 cm; Wt 81.6 kg
--- OUTSIDE RECORDS SUMMARY | 2016-12-20 12:43 | XMS REPORT | Continuity of Care Document ---
Author Author [facility] Organization [facility] Address Unknown Phone Unavailable Support Name Relationship Address Phone PAULO DINH Caregiver [address] [place] [phone] BLAYNE CANDELARIA Next Of Kin Unknown [phone] Insurance Providers Payer Name Policy Number Subscriber Name Relationship [employer] [id number] Pato Candelaria 20 Self Advance Directives Directive [...] tobacco in the last 12 months Yes 11/28/2014 4:21pm Tobacco Usage smoke 11/01/2014 3:08pm Query Response Start Date Stop Date Smoking Status Current every day smoker Hospital Discharge Instructions Instructions: Care Instructions: Reason for Hospitalization: GENERALIZED WEAKNESS I was in the hospital because (patient own words): CAN'T MOVE MY LEGS, BARELY MOVE MY ARMS. Patient Instructions: You are being transferred to [facility] for further care that is not available at [place]. General Information: We hope you get better soon. Condition at time of discharge: Fair Good you develop fever, nausea/vomiting/diarrhea (dehydration), chest pain or difficulty breathing, altered mental status, or any new concerns. General Information: Avoid taking cscy-wjw-zkdekid gblyeb-pzao-trifdqjvai (ie. Prilosec "the little purple pill") and NSAIDS (ibuprofen, naproxen, aspirin) until Dr. Glass approves. Condition at time of discharge: Good General Information: n/a Condition at time of discharge: Good Pass Plan of Care Discharge Date 11/01/14 4:18pm [...] Vital Signs Vital Response Date/Time Temperature (Fahrenheit) 98.0 deg F (96.8 - 99.1) Temperature (Calculated Celsius) 36.53744 degrees C (36.0 - 37.3) Pulse Rate (adult) 68 bpm (60 - 100) Respiratory Rate 16 breaths/min (10 - 20) O2 Sat by Pulse Oximetry 99 % (90 - 100) Oxygen Delivery Method Room Air Blood Pressure 134/69 mm Hg Blood Pressure Source Automatic Cuff Results Test Source Date Result Interp. Ref. Range Comments Activated Partial Thromboplast Time December 12, 2014 10:15am 32.7 SEC N 24 -36 Alanine Aminotransferase (ALT/SGPT) December 16, 2014 1:40pm 40 U/L N 21- 72 Albumin December 16, 2014 1:40pm 4.1 G/DL N 3.5-5.0 Albumin/Globulin Ratio December 16, 2014 1:40pm 1.6 RATIO N 1.1-2.2 Alkaline Phosphatase December 16, 2014 1:40pm 58 U/L N 38-126 Anion Gap December 16, 2014 1:40pm 11 MEQ/L N 5-15 Anisocytosis December 05, 2013 9:10am 1+ - Aspartate Amino Transf (AST/SGOT) December 16, 2014 1:40pm 23 U/L N 17-59 BUN/Creatinine Ratio December 16, 2014 1:40pm 10 RATIO N 6-26 Band Neutrophils # December 02, 2014 9:43am 0.3 T/MM3 - Band Neutrophils % December 02, 2014 9:43am 24.0 % DH 0-6 Basophils # (Auto) December 16, 2014 1:40pm 0.0 T/MM3 N 0-0.2 Basophils # (Manual) November 19, 2014 1:50pm 0.1 T/MM3 N 0-0.2 Basophils % (Manual) November 19, 2014 1:50pm 1.0 % N 0-2 Basophils (%) (Auto) December 16, 2014 1:40pm 0.7 % N 0-2 Blood Urea Nitrogen December 16, 2014 1:40pm 7.0 MG/DL L 9-20 C-Reactive Protein November 22, 2014 2:25pm < 5.0 MG/L 0-9 Calcium Level December 16, 2014 1:40pm 9.3 MG/DL N 8.4-10.2 Calculated Osmolality December 16, 2014 1:40pm 277 MOSM/KG N 261-280 Carbon Dioxide Level December 16, 2014 1:40pm 28 MEQ/L N 22-30 Chemistry Specimen Hemolysis December 16, 2014 1:40pm < 15 0-25 0-25: No Hemolysis.26-70: Slight [...] decrease Phenytoin. Recommend specimen recollection. Chloride Level December 16, 2014 1:40pm 106 MEQ/L N 98-107 Cholesterol Level April 06, 2013 5:30pm 175 MG/DL N 132-199 Cholesterol/HDL Ratio April 06, 2013 5:30pm 3.5 RATIO N 0-5.0 Creatinine December 16, 2014 1:40pm 0.7 MG/DL L 0.8-1.5 D-Dimer October 28, 2014 10:52am < 150 NG/ML 0-230 <230 NG/ML D-DU= PRESUMPTIVE NEGATIVE FOR PE OR DVT>230 NG/ML D-DU=ADDITIONAL EVAL FOR PE OR DVT RECOMMENDED Eosinophils # (Auto) December 16, 2014 1:40pm 0.1 T/MM3 N 0-0.5 Eosinophils # (Manual) December 02, 2014 9:43am 0.0 T/MM3 N 0-0.5 Eosinophils % (Manual) December 02, 2014 9:43am 4.0 % N 0-4 Eosinophils (%) (Auto) December 16, 2014 1:40pm 1.7 % N 0-4 Fibrinogen October 28, 2014 10:52am 274 MG/DL N 135-357 Globulin December 16, 2014 1:40pm 2.5 G/DL N 2.4-3.6 Glomerular Filtration Rate Calc December 16, 2014 1:40pm 135 - Glucose Level December 16, 2014 1:40pm 94 MG/DL N 75-110 HDL Cholesterol Direct April 06, 2013 5:30pm 50 MG/DL N 40-60 Helicobacter pylori Antibodies November 04, 2014 2:10pm Negative - Hematocrit December 16, 2014 1:40pm 32.6 % L 41-53 Hemoglobin December 16, 2014 1:40pm 11.6 GM/DL L 13.5-17.5 Hepatitis B Core Total Antibody October 21, 2014 1:35pm Negative - Hepatitis B Core Ab Total performed at [facility] Reference Lab, [address] [place] [id number] [address] [employer] Aster Marvin DO Hepatitis B Surface Ab [...] HCV infection. Hepatitis C RNA performed at [facility] Reference Lab, [address] [place] [address] [address] [place] [employer] Aster Marvin DO Hepatitis C Viral RNA October 28, 2014 8:30am Not detected IU/mL - Icterus Index December 16, 2014 1:40pm < 2 0-7 Immature Granulocyte # (Auto) December 16, 2014 1:40pm 0.01 T/MM3 N 0.00- 0.03 Immature Granulocyte % (Auto) December 16, 2014 1:40pm 0.2 % N 0.0-0.5 LDL Cholesterol, Calculated April 06, 2013 5:30pm 112.6 N 66-159 Lab Scanned Report December 12, 2014 5:24pm LAB TEST FORM REQUEST - Lactate Dehydrogenase December 16, 2014 1:40pm 406 U/L N 313-618 Lipase April 09, 2014 5:57pm 70 U/L N 23-300 Lymphocytes # (Auto) December 16, 2014 1:40pm 0.6 T/MM3 L 1-4.8 Lymphocytes # (Manual) December 02, 2014 9:43am 0.6 T/MM3 L 1-4.8 Lymphocytes % (Manual) December 02, 2014 9:43am 54.0 % H 23-45 Lymphocytes (%) (Auto) December 16, 2014 1:40pm 15.3 % L 23-45 Magnesium Level December 02, 2014 9:43am 1.9 MG/DL N 1.6-2.3 Mean Corpuscular Hemoglobin December 16, 2014 1:40pm 33.4 UUG N 26-34 Mean Corpuscular Hemoglobin Concent December 16, 2014 1:40pm 35.6 GM/DL N 31-37 Mean Corpuscular Volume December 16, 2014 1:40pm 93.9 UM3 N 80-100 Mean Platelet Volume December 16, 2014 1:40pm 9.0 UM3 L 9.4-12.4 Metamyelocytes # December 28, 2013 9:39am 0.2 T/MM3 - Metamyelocytes % December 28, 2013 9:39am 2.0 % H 0-0 Monocytes # (Auto) December 16, 2014 1:40pm 0.7 T/MM3 N 0-0.8 Monocytes # (Manual) December 02, 2014 9:43am 0.0 T/MM3 N 0-0.8 Monocytes % (Manual) December 02, 2014 9:43am 4.0 % N 0-9.0 Monocytes (%) (Auto) December 16, 2014 1:40pm 16.5 % H 0-9.0 Myelocytes # December 28, 2013 9:39am 0.1 T/MM3 - Myelocytes % December 28, 2013 9:39am 1.0 % H 0-0 BX-Wim-L-Type Natriuretic Peptide April 10, 2014 12:08am 48 PG/ML N 0- 175 Rule in cut points: <50 years old=450; 50-75 years old=900; >75 years old=1800; When utilizing ProBNP rule-in cut points, adjustment for impaired renal function is typically not required. Neutrophils # (Auto) December 16, 2014 1:40pm 2.7 T/MM3 N 1.8-7.7 Neutrophils # (Manual) December 02, 2014 9:43am 0.2 T/MM3 L 1.8-7.7 Neutrophils % (Manual) December 02, 2014 9:43am 14.0 % L 33-66 Neutrophils (%) (Auto) December 16, 2014 1:40pm 65.6 % N 33-66 Nucleated Red Blood Cells November 21, 2014 9:15am 1 - Platelet Count December 16, 2014 1:40pm 415 T/MM3 H 130-400 Potassium Level December 16, 2014 1:40pm 3.8 MEQ/L N 3.6-5 Procalcitonin November 22, 2014 2:25pm < 0.05 NG/ML - PCT </=0.5 ng/mL - sepsis not likely;PCT >0.5 and </=2 ng/mL - sepsis possible; PCT >2 ng/mL - sepsis likely; PCT >/=10 ng/mL - systemic inflammatory response - sepsis or septic shock highly indicated. Prothromb Time International Ratio December 12, 2014 10:15am 1.06 N 0.81- 1.09 THERAPUTIC RANGE=2.00-3.00 FOR ANTI-THROMBOSIS THERAPUTIC RANGE=2.50- 3.50 FOR IMPLANTED VALVE RDW Standard Deviation December 16, 2014 1:40pm 57.9 FL H 36.9-50.2 Reactive Lymphocytes # November 21, 2014 9:15am 0.0 T/MM3 N 0-0 Reactive Lymphocytes % November 21, 2014 9:15am 1.0 % H 0-0 Red Blood Count December 16, 2014 1:40pm 3.47 M/MM3 L 4.50-5.90 Red Cell Morphology Comment December 02, 2014 9:43am Normal - Sodium Level December 16, 2014 1:40pm 145 MEQ/L H 134-144 Total Bilirubin December 16, 2014 1:40pm 0.50 MG/DL N 0.20-1.30 Total Protein December 16, 2014 1:40pm 6.6 G/DL N 6.3-8.2 Triglycerides Level April 06, 2013 5:30pm 62 MG/DL N 40-160 Troponin I April 10, 2014 11:45am 0.087 ng/ml N 0-0.12 Turbidity December 16, 2014 1:40pm < 20 0-20 Uric Acid December 02, 2014 9:43am 3.7 MG/DL N 3.5-8.5 Urinalysis Comment December 02, 2014 9:45am Microscopic not ind. - Urine Bacteria February 27, 2014 3:45pm None seen - Has specimen been collected/obtained? Y Urine Bilirubin December 02, 2014 9:45am Negative - Urine Blood December 02, 2014 9:45am Negative - Urine Collection Type December 02, 2014 9:45am Voided-not cc-midstr - Urine Color December 02, 2014 9:45am Yellow - Urine Glucose (UA) December 02, 2014 9:45am Negative - Urine Ketones December 02, 2014 9:45am Negative - Urine Leukocyte Esterase December 02, 2014 9:45am Negative - Urine Nitrite December 02, 2014 9:45am Negative - Urine Protein December 02, 2014 9:45am Negative - Urine RBC February 27, 2014 3:45pm None seen /HPF - Has specimen been collected/obtained? Y Urine Specific [place] December 02, 2014 9:45am 1.015 - Urine Turbidity December 02, 2014 9:45am Sl cloudy - Urine Urobilinogen December 02, 2014 9:45am 0.2 EU/DL - Urine WBC February 27, 2014 3:45pm None seen /HPF - Has specimen been collected/obtained? Y Urine pH December 02, 2014 9:45am 7.0 - VLDL Cholesterol April 06, 2013 5:30pm 12.4 MG/DL N 0-28 Venous Blood Lactate January 19, 2014 1:45am 0.8 MMOL/L N 0.6-2.2 White Blood Count December 16, 2014 1:40pm 4.1 T/MM3 L 4.5-11.0 Blood Culture Catheter/Port Blood December 12, 2014 10:20am NO GROWTH AFTER 4 DAYS Gram Stain Sputum-Expectorated Sputum December 12, 2014 10:20am Name: PATO CANDELARIA Unit #: [id number] : 1985 Sex: M Loc / Svc: KRYSTYNA DOS: 12/12/14 Signed Report #: [id number] DIAGNOSTIC IMAGING REPORT TYPE OF EXAM: CHEST, PA & LATERAL Dictated By: NEIL ANGULO MD INDICATION: ITS.REASON: 782.0 TACHYCARDIA; 782.7 EASY BRUISING; 465.9 UPPER RESPIRATORY CHEST 2-VIEWS UPRIGHT (PA & LAT) COMPARISON: April 09, 2014 FINDINGS: The lungs are clear without evidence of focal abnormal airspace opacity. There is no pleural effusion or pneumothorax. Right internal jugular portacatheter and SVC stents are again noted along with left sided hilar surgical clips. The heart size, mediastinal contours and pulmonary vascularity are within normal limits. There is no significant skeletal abnormality. IMPRESSION: No acute cardiopulmonary disease. . Procedures Procedure Status Date Provider(s) GATED HEART PLANAR SINGLE completed 10/07/14 TTE W/DOPPLER COMPLETE completed 10/07/14 [id number] completed 10/07/14 COMPREHEN METABOLIC PANEL completed 10/18/14 LACTATE (LD) (LDH) ENZYME completed 10/18/14 COMPLETE CBC W/AUTO DIFF WBC completed 10/18/14 CT THORAX W/DYE completed 10/18/14 CT ABD & PELV W/CONTRAST completed 10/18/14 [id number]"INJECTION, HEPARIN SODIUM, (HEPARIN LOCK FLUSH), PER completed [id number]"INFUSION, NORMAL SALINE SOLUTION , 250 CC" completed 10/18/14 [id number]"LOW OSMOLAR CONTRAST MATERIAL, 300-399 MG/ML IODINE C completed ROUTINE VENIPUNCTURE completed 10/28/14 CT ANGIOGRAPHY CHEST completed 10/28/14 FIBRIN DEGRADATION QUANT completed 10/28/14 FIBRINOGEN ACTIVITY completed 10/28/14 THROMBOPLASTIN TIME PARTIAL completed 10/28/14 [id number]"INJECTION, HEPARIN SODIUM, (HEPARIN LOCK FLUSH), PER completed [id number]"INFUSION, NORMAL SALINE SOLUTION , 250 CC" completed 10/28/14 [id number]"LOW OSMOLAR CONTRAST MATERIAL, 300-399 MG/ML IODINE C [...] completed 11/13/14 Encounters Encounter Location Date/Time Registered [facility] 12/16/14 1:56pm Registered Clinic [facility] 12/12/14 10:29am Registered Clinic [facility] 12/05/14 8:59am Discharged Recurring [facility] 12/02/14 12:58pm Registered Clinic [facility] 11/28/14 3:17pm Registered Clinic [facility] 11/26/14 1:26pm Discharged Recurring [facility] 11/14/14 11:45am Registered Clinic [facility] 11/13/14 3:59pm Discharged Inpatient [facility] 10/31/14 6:21pm Registered [facility] 10/29/14 11:00am Registered Clinic [facility] 10/28/14 10:38am Registered Clinic [facility] 10/18/14 11:53am Registered Clinic [facility] 10/18/14 10:26am Registered Clinic [facility] 10/07/14 6:54am
--- OUTSIDE RECORDS SUMMARY | 2016-12-20 12:43 | XMS REPORT | Continuity of Care Document ---
Author Author [facility] Organization [facility] Address Unknown Phone Unavailable Support Name Relationship Address Phone PAULO DINH Caregiver [address] [place] [phone] BLAYNE CANDELARIA Next Of Kin Unknown [phone] Insurance Providers Payer Name Policy Number Subscriber Name Relationship [employer] [id number] Pato Candelaria 20 Self Advance Directives Directive [...] Instructions Instructions: Care Instructions: Reason for Hospitalization: Right pleural effusion I was in the hospital because (patient own words): "I HURT IN MY RIB CAGE" Discharge Diet: 2000 KCAL ADA low sodium Discharge Activity: As tolerated Follow Up Appointments: Dr Iqbal in 1 week - check CXR, BMP, CBC at that time [phone] DECEMBER 23 AT 11:30 Durable Medical Equipment: O2 at 2L per NC Condition at time of discharge: Good Good Notify Physician If: fever greater than 101, chest pain, shortness of breath or uncontrolled pain. Condition at time of discharge: Good Good Pass Plan of Care Discharge Date [...] Vital Signs Vital Response Date/Time Temperature (Fahrenheit) 97.7 deg F (96.8 - 99.1) Temperature (Calculated Celsius) 36.77903 degrees C (36.0 - 37.3) Pulse Rate (adult) 74 bpm (60 - 100) Respiratory Rate 16 breaths/min (10 - 20) O2 Sat by Pulse Oximetry 97 % (90 - 100) Oxygen Delivery Method Room Air Blood Pressure 106/64 mm Hg Blood Pressure Source Automatic Cuff [...] Hepatitis B Core Ab Total performed at [facility] Reference Lab, [address] [place] [address] Door Worker Aster Marvin DO Hepatitis B Surface Ab [...] HCV infection. Hepatitis C RNA performed at [facility] Reference Lab, [address] [place] [address] Door Worker Aster Marvin DO Hepatitis C Viral RNA October 28, 2014 8:30am Not detected IU/mL - Icterus Index December 16, 2014 1:40pm < 2 0-7 Immature Granulocyte # (Auto) December 16, 2014 1:40pm 0.01 T/MM3 N 0.00- 0.03 Immature Granulocyte % (Auto) December 16, 2014 1:40pm 0.2 % N 0.0-0.5 LDL Cholesterol, Calculated April 06, 2013 5:30pm 112.6 N 66-159 Lab Scanned Report December 16, 2014 9:04pm LAB TEST FORM REQUEST - Lactate Dehydrogenase [...] 28, 2013 9:39am 1.0 % H 0-0 GP-Ukh-E-Type Natriuretic Peptide April 10, 2014 12:08am 48 [...] Has specimen been collected/obtained? Y Urine Specific [place] December 02, 2014 9:45am 1.015 - Urine [...] 2014 10:20am Name: PATO CANDELARIA Unit #: [id number] : 1985 Sex: M Loc / Svc: KRYSTYNA DOS: 12/12/14 Signed Report #: [id number] DIAGNOSTIC IMAGING REPORT TYPE OF EXAM: CHEST, [...] completed 10/07/14 TTE W/DOPPLER COMPLETE completed 10/07/14 [id number] completed 10/07/14 COMPREHEN METABOLIC PANEL completed 10/18/14 LACTATE (LD) (LDH) ENZYME completed 10/18/14 COMPLETE CBC W/AUTO DIFF WBC completed 10/18/14 CT THORAX W/DYE completed 10/18/14 CT ABD & PELV W/CONTRAST completed 10/18/14 [id number]"INJECTION, HEPARIN SODIUM, (HEPARIN LOCK FLUSH), PER completed 537048"INFUSION, NORMAL SALINE SOLUTION , 250 CC" completed 10/18/14 [id number]"LOW OSMOLAR CONTRAST MATERIAL, 300-399 MG/ML IODINE C completed ROUTINE VENIPUNCTURE completed 10/28/14 CT ANGIOGRAPHY CHEST completed 10/28/14 FIBRIN DEGRADATION QUANT completed 10/28/14 FIBRINOGEN ACTIVITY completed 10/28/14 THROMBOPLASTIN TIME PARTIAL completed 10/28/14 [id number]"INJECTION, HEPARIN SODIUM, (HEPARIN LOCK FLUSH), PER completed 173414"INFUSION, NORMAL SALINE SOLUTION , 250 CC" completed 10/28/14 [id number]"LOW OSMOLAR CONTRAST MATERIAL, 300-399 MG/ML IODINE C [...] completed 11/13/14 Encounters Encounter Location Date/Time Registered [facility] 12/16/14 1:56pm Registered Clinic [facility] 12/12/14 10:29am Registered Clinic [facility] 12/05/14 8:59am Discharged Recurring [facility] 12/02/14 12:58pm Registered Clinic [facility] 11/28/14 3:17pm Registered Clinic [facility] 11/26/14 1:26pm Discharged Recurring [facility] 11/14/14 11:45am Registered Clinic [facility] 11/13/14 3:59pm Discharged Inpatient [facility] 10/31/14 6:21pm Discharged Recurring [facility] 10/29/14 11:00am Registered Clinic [facility] 10/28/14 10:38am Registered Clinic [facility] 10/18/14 11:53am Registered [facility] 10/18/14 10:26am Registered [facility] 10/07/14 6:54am
--- OUTSIDE RECORDS SUMMARY | 2016-12-20 12:43 | XMS REPORT | Continuity of Care Document ---
Author Author [facility] Organization [facility] Address Unknown Phone Unavailable Support Name Relationship Address Phone PAULO DINH Caregiver [address] [place] [phone] BLAYNE CANDELARIA Next Of Kin Unknown [phone] Insurance Providers Payer Name Policy Number Subscriber Name Relationship Sweetien [id number] Pato Candelaria 20 Self Advance Directives Directive [...] Instructions Instructions: Care Instructions: Reason for Hospitalization: Acute Kidney injury I was in the hospital because (patient own words): PAIN IN LOWER ABD/PELVIC AREA. Discharge Diet: 2000 KCAL ADA, low sodium Discharge Activity: As tolerated Follow Up Appointments: Dr Bradley this week-BMP at that time Restart Lisinopril and Metformin at Dr Mata recommendation Recheck BMP one week after restarting above medications Dr Verdugo as schedualed on 12/26/14 Patient Instructions: Continue Contreras to DD-leg bag Condition at time of discharge: Good be locked up and the gtz unavailable. All medications should be locked up and unavailble. General Information: Reiterating Dr Celestin' instructions to patient and Grandma- if you need care prior to Tuesday, return to [facility] or to [facility] in [place]. Suicide Prevention hotline numbers: , (Given to Dante on a separate sticky note) Condition at time of discharge: Fair Plan of Care Discharge Date 11/01/14 4:18pm [...] Vital Signs Vital Response Date/Time Temperature (Fahrenheit) 95.6 deg F (96.8 - 99.1) Temperature (Calculated Celsius) 35.55920 degrees C (36.0 - 37.3) Pulse Rate (adult) 97 bpm (60 - 100) Respiratory Rate 16 breaths/min (10 - 20) O2 Sat by Pulse Oximetry 94 % (90 - 100) Oxygen Delivery Method Room Air Blood Pressure 135/71 mm Hg Blood Pressure Source Automatic Cuff Results Test Source Date Result Interp. Ref. Range Comments Activated Partial Thromboplast Time December 12, 2014 10:15am 32.7 SEC N 24 -36 Alanine Aminotransferase (ALT/SGPT) December 19, 2014 10:53am 28 U/L N 21- 72 Albumin December 19, 2014 10:53am 3.9 G/DL N 3.5-5.0 Albumin/Globulin Ratio December 19, 2014 10:53am 1.6 RATIO N 1.1-2.2 Alkaline Phosphatase December 19, 2014 10:53am 54 U/L N 38-126 Anion Gap December 19, 2014 10:53am 12 MEQ/L N 5-15 Anisocytosis December 05, 2013 9:10am 1+ - Aspartate Amino Transf (AST/SGOT) December 19, 2014 10:53am 18 U/L N 17-59 BUN/Creatinine Ratio December 19, 2014 10:53am 19 RATIO N 6-26 Band Neutrophils # December 02, 2014 9:43am 0.3 T/MM3 - Band Neutrophils % December 02, 2014 9:43am 24.0 % DH 0-6 Basophils # (Auto) December 19, 2014 10:53am 0.0 T/MM3 N 0-0.2 Basophils # (Manual) November 19, 2014 1:50pm 0.1 T/MM3 N 0-0.2 Basophils % (Manual) November 19, 2014 1:50pm 1.0 % N 0-2 Basophils (%) (Auto) December 19, 2014 10:53am 0.3 % N 0-2 Blood Urea Nitrogen December 19, 2014 10:53am 13.0 MG/DL DN 9-20 C-Reactive Protein November 22, 2014 2:25pm < 5.0 MG/L 0-9 Calcium Level December 19, 2014 10:53am 9.0 MG/DL N 8.4-10.2 Calculated Osmolality December 19, 2014 10:53am 276 MOSM/KG N 261-280 Carbon Dioxide Level December 19, 2014 10:53am 24 MEQ/L N 22-30 Chemistry Specimen Hemolysis December 19, 2014 10:53am < 15 0-25 0-25: No Hemolysis.26-70: Slight [...] Phenytoin. Recommend specimen recollection. Chloride Level December 19, 2014 10:53am 107 MEQ/L N 98-107 Cholesterol Level April 06, 2013 5:30pm 175 MG/DL N 132-199 Cholesterol/HDL Ratio April 06, 2013 5:30pm 3.5 RATIO N 0-5.0 Creatinine December 19, 2014 10:53am 0.7 MG/DL L 0.8-1.5 D-Dimer October 28, 2014 10:52am < 150 NG/ML 0-230 <230 NG/ML D-DU= PRESUMPTIVE NEGATIVE FOR PE OR DVT>230 NG/ML D-DU=ADDITIONAL EVAL FOR PE OR DVT RECOMMENDED Eosinophils # (Auto) December 19, 2014 10:53am 0.0 T/MM3 N 0-0.5 Eosinophils # (Manual) December 02, 2014 9:43am 0.0 T/MM3 N 0-0.5 Eosinophils % (Manual) December 02, 2014 9:43am 4.0 % N 0-4 Eosinophils (%) (Auto) December 19, 2014 10:53am 0.2 % N 0-4 Fibrinogen October 28, 2014 10:52am 274 MG/DL N 135-357 Globulin December 19, 2014 10:53am 2.4 G/DL N 2.4-3.6 Glomerular Filtration Rate Calc December 19, 2014 10:53am 135 - Glucose Level December 19, 2014 10:53am 124 MG/DL H 75-110 HDL Cholesterol Direct April 06, 2013 5:30pm 50 MG/DL N 40-60 Helicobacter pylori Antibodies November 04, 2014 2:10pm Negative - Hematocrit December 19, 2014 10:53am 31.9 % L 41-53 Hemoglobin December 19, 2014 10:53am 11.1 GM/DL L 13.5-17.5 Hepatitis B Core Total Antibody October 21, 2014 1:35pm Negative - Hepatitis B Core Ab Total performed at [facility] Reference Lab, [address] [place] [id number] Poultry Raiser Aster Marvin DO Hepatitis B Surface Ab [...] HCV infection. Hepatitis C RNA performed at [facility] Reference Lab, [facility] [place] [address] Poultry Raiser Aster Marvin DO Hepatitis C Viral RNA October 28, 2014 8:30am Not detected IU/mL - Icterus Index December 19, 2014 10:53am < 2 0-7 Immature Granulocyte # (Auto) December 19, 2014 10:53am 0.00 T/MM3 N 0.00- 0.03 Immature Granulocyte % (Auto) December 19, 2014 10:53am 0.0 % N 0.0-0.5 LDL Cholesterol, Calculated April 06, 2013 5:30pm 112.6 N 66-159 Lab Scanned Report December 19, 2014 11:22am LAB TEST FORM REQUEST - Lactate Dehydrogenase December 19, 2014 10:53am 328 U/L N 313-618 Lipase April 09, 2014 5:57pm 70 U/L N 23-300 Lymphocytes # (Auto) December 19, 2014 10:53am 0.8 T/MM3 L 1-4.8 Lymphocytes # (Manual) December 02, 2014 9:43am 0.6 T/MM3 L 1-4.8 Lymphocytes % (Manual) December 02, 2014 9:43am 54.0 % H 23-45 Lymphocytes (%) (Auto) December 19, 2014 10:53am 12.5 % L 23-45 Magnesium Level December 02, 2014 9:43am 1.9 MG/DL N 1.6-2.3 Mean Corpuscular Hemoglobin December 19, 2014 10:53am 33.3 UUG N 26-34 Mean Corpuscular Hemoglobin Concent December 19, 2014 10:53am 34.8 GM/DL N 31-37 Mean Corpuscular Volume December 19, 2014 10:53am 95.8 UM3 N 80-100 Mean Platelet Volume December 19, 2014 10:53am 8.7 UM3 L 9.4-12.4 Metamyelocytes # December 28, 2013 9:39am 0.2 T/MM3 - Metamyelocytes % December 28, 2013 9:39am 2.0 % H 0-0 Monocytes # (Auto) December 19, 2014 10:53am 0.7 T/MM3 N 0-0.8 Monocytes # (Manual) December 02, 2014 9:43am 0.0 T/MM3 N 0-0.8 Monocytes % (Manual) December 02, 2014 9:43am 4.0 % N 0-9.0 Monocytes (%) (Auto) December 19, 2014 10:53am 11.5 % H 0-9.0 Myelocytes # December 28, 2013 9:39am 0.1 T/MM3 - Myelocytes % December 28, 2013 9:39am 1.0 % H 0-0 OX-Cdx-U-Type Natriuretic Peptide April 10, 2014 12:08am 48 PG/ML N 0- 175 Rule in cut points: <50 years old=450; 50-75 years old=900; >75 years old=1800; When utilizing ProBNP rule-in cut points, adjustment for impaired renal function is typically not required. Neutrophils # (Auto) December 19, 2014 10:53am 4.7 T/MM3 N 1.8-7.7 Neutrophils # (Manual) December 02, 2014 9:43am 0.2 T/MM3 L 1.8-7.7 Neutrophils % (Manual) December 02, 2014 9:43am 14.0 % L 33-66 Neutrophils (%) (Auto) December 19, 2014 10:53am 75.5 % H 33-66 Nucleated Red Blood Cells November 21, 2014 9:15am 1 - Platelet Count December 19, 2014 10:53am 440 T/MM3 H 130-400 Potassium Level December 19, 2014 10:53am 3.6 MEQ/L N 3.6-5 Procalcitonin November 22, 2014 [...] FOR IMPLANTED VALVE RDW Standard Deviation December 19, 2014 10:53am 58.3 FL H 36.9-50.2 Reactive Lymphocytes # November 21, 2014 9:15am 0.0 T/MM3 N 0-0 Reactive Lymphocytes % November 21, 2014 9:15am 1.0 % H 0-0 Red Blood Count December 19, 2014 10:53am 3.33 M/MM3 L 4.50-5.90 Red Cell Morphology Comment December 02, 2014 9:43am Normal - Sodium Level December 19, 2014 10:53am 143 MEQ/L N 134-144 Total Bilirubin December 19, 2014 10:53am 0.50 MG/DL N 0.20-1.30 Total Protein December 19, 2014 10:53am 6.3 G/DL N 6.3-8.2 Triglycerides Level April 06, 2013 5:30pm 62 MG/DL N 40-160 Troponin I April 10, 2014 11:45am 0.087 ng/ml N 0-0.12 Turbidity December 19, 2014 10:53am < 20 0-20 Uric Acid December 02, 2014 9:43am 3.7 MG/DL N 3.5-8.5 Urinalysis Comment December 02, 2014 9:45am Microscopic not ind. - Urine Bacteria December 19, 2014 12:00am Trace H - Urine Bilirubin December 19, 2014 12:00am Negative - Urine Blood December 19, 2014 12:00am Negative - Urine Collection Type December 19, 2014 12:00am - Urine Color December 19, 2014 12:00am Yellow - Urine Glucose (UA) December 19, 2014 12:00am Negative - Urine Ketones December 19, 2014 12:00am Negative - Urine Leukocyte Esterase December 19, 2014 12:00am Negative - Urine Nitrite December 19, 2014 12:00am Negative - Urine Protein December 19, 2014 12:00am Negative - Urine RBC December 19, 2014 12:00am 0-1 /HPF - Urine Specific [place] December 19, 2014 12:00am >=1.030 H - Urine Squamous Epithelial Cells December 19, 2014 12:00am 0-5 - Urine Turbidity December 19, 2014 12:00am Clear - Urine Urobilinogen December 19, 2014 12:00am 0.2 EU/DL - Urine WBC December 19, 2014 12:00am 0-1 /HPF - Urine pH December 19, 2014 12:00am 6.0 - VLDL Cholesterol April 06, 2013 5:30pm 12.4 MG/DL N 0-28 Venous Blood Lactate January 19, 2014 1:45am 0.8 MMOL/L N 0.6-2.2 White Blood Count December 19, 2014 10:53am 6.2 T/MM3 DN 4.5-11.0 Blood Culture Catheter/Port Blood December 12, 2014 10:20am NO GROWTH AFTER 5 DAYS Gram Stain Sputum-Expectorated Sputum December 12, 2014 10:20am Name: PATO CANDELARIA Unit #: [id number] : 1985 Sex: M Loc / Svc: MED DOS: 10/29/14 Signed Report #: [id number] DIAGNOSTIC IMAGING REPORT TYPE OF EXAM: CHEST, PA & LATERAL Dictated By: DAMIAN WASHINGTON MD INDICATION: ITS.REASON: COUGH CHEST 2-VIEWS UPRIGHT (PA & LAT) COMPARISON: December 12, 2014. FINDINGS: The lungs are clear without evidence of focal abnormal airspace opacity. There is no pleural effusion or pneumothorax. There is a stent in place within the SVC. Right-sided chest port is in place entering through the right jugular vein with the tip at the SVC/right atrial junction. The heart size, mediastinal contours and pulmonary vascularity are within normal limits. There is no significant skeletal abnormality. IMPRESSION: 1. No focus of pneumonia is identified. 2. SVC stent is in place and appears appropriate and stable. 3. Surgical clips are seen in the left anabell and a chest port is seen entering through the right jugular vein with the tip at the SVC/atrial junction. . Procedures Procedure Status Date Provider(s) GATED HEART PLANAR SINGLE completed 10/07/14 TTE W/DOPPLER COMPLETE completed 10/07/14 [id number] completed 10/07/14 COMPREHEN METABOLIC PANEL completed 10/18/14 LACTATE (LD) (LDH) ENZYME completed 10/18/14 COMPLETE CBC W/AUTO DIFF WBC completed 10/18/14 CT THORAX W/DYE completed 10/18/14 CT ABD & PELV W/CONTRAST completed 10/18/14 [id number]"INJECTION, HEPARIN SODIUM, (HEPARIN LOCK FLUSH), PER completed [id number]"INFUSION, NORMAL SALINE SOLUTION , 250 CC" completed 10/18/14 [id number]"LOW OSMOLAR CONTRAST MATERIAL, 300-399 MG/ML IODINE C completed ROUTINE VENIPUNCTURE completed 10/28/14 CT ANGIOGRAPHY CHEST completed 10/28/14 FIBRIN DEGRADATION QUANT completed 10/28/14 FIBRINOGEN ACTIVITY completed 10/28/14 THROMBOPLASTIN TIME PARTIAL completed 10/28/14090337"INJECTION, HEPARIN SODIUM, (HEPARIN LOCK FLUSH), PER completed 003"INFUSION, NORMAL SALINE SOLUTION , 250 CC" completed 10/28/14746402"LOW OSMOLAR CONTRAST MATERIAL, 300-399 MG/ML IODINE C [...] completed 11/13/14 Encounters Encounter Location Date/Time Registered [facility] 12/19/14 11:07am Registered [facility] 12/12/14 10:29am Registered [facility] 12/05/14 8:59am Registered [facility] 12/02/14 12:58pm Registered [facility] 11/28/14 3:17pm Registered [facility] 11/26/14 1:26pm Registered [facility] 11/13/14 3:59pm Discharged [facility] 11/03/14 8:09pm Discharged Inpatient [facility] 10/31/14 6:21pm Discharged [facility] 10/29/14 11:00am Registered [facility] 10/28/14 10:38am Registered [facility] 10/18/14 11:53am Registered [facility] 10/18/14 10:26am Registered [facility] 10/07/14 6:54am
--- OUTSIDE RECORDS SUMMARY | 2016-12-20 12:43 | XMS REPORT | Continuity of Care Document ---
Author Author [facility] Organization [facility] Address Unknown Phone Unavailable Support Name Relationship Address Phone PAULO DINH Caregiver [address] [place] [phone] BLAYNE CANDELARIA Next Of Kin Unknown [phone] Insurance Providers Payer Name Policy Number Subscriber Name Relationship Sweetien [id number] Pato Candelaria 20 Self Advance Directives Directive [...] Instructions Instructions: Care Instructions: Reason for Hospitalization: Intentional Drug Overdose I was in the hospital because (patient own words): I took a bunch of pills Discharge Diet: Regular diet Discharge Activity: Supervised 24 hours of the day. You may complete your 2 hours of TV time today (you have 1 hour, 10 minutes left) Follow Up Appointments: Per instructions given for inpatient Psych on Tuesday. If you need medical records from [facility], you will need to call [facility] and as for "HIM" ([phone]) Present to [facility] admissions in [place] on Tuesday morning for request for treatment following hospitalization and declining of transfer to treatment facility over the weekend. facility over the weekend. Patient Instructions: Patient is not to take any medications after dismissal. Patient is to be supervised at all times, including bedtime and bathroom. All guns should be locked up and the gtz unavailable. All medications should be locked up and unavailble. General Information: Reiterating Dr Celestin' instructions to patient and Grandma- if you need care prior to Tuesday, return to [facility] ER or to [facility] in [place]. Suicide Prevention hotline numbers: , (Given to [...] F (96.8 - 99.1) Temperature (Calculated Celsius) 35.66719 degrees C (36.0 - 37.3) Pulse Rate [...] Hepatitis B Core Ab Total performed at [facility] Reference Lab, [address] [place] [address] Exhibit Builder Aster Marvin DO Hepatitis B Surface Ab [...] HCV infection. Hepatitis C RNA performed at [facility], [address] [place], [place] [address] Exhibit Builder Aster Marvin DO Hepatitis C Viral RNA [...] 28, 2013 9:39am 1.0 % H 0-0 VO-Etv-Y-Type Natriuretic Peptide April 10, 2014 12:08am 48 [...] 2014 12:00am 0-1 /HPF - Urine Specific [place] December 19, 2014 12:00am >=1.030 H - [...] 2014 10:20am Name: PATO CANDELARIA Unit #: [id number] : 1985 Sex: M Loc / Svc: MED DOS: 10/29/14 Signed Report #: [id number] DIAGNOSTIC IMAGING REPORT TYPE OF EXAM: CHEST, [...] completed 10/07/14 TTE W/DOPPLER COMPLETE completed 10/07/14 [id number] completed 10/07/14 COMPREHEN METABOLIC PANEL completed 10/18/14 LACTATE (LD) (LDH) ENZYME completed 10/18/14 COMPLETE CBC W/AUTO DIFF WBC completed 10/18/14 CT THORAX W/DYE completed 10/18/14 CT ABD & PELV W/CONTRAST completed 10/18/14 [id number]"INJECTION, HEPARIN SODIUM, (HEPARIN LOCK FLUSH), PER completed [id number]"INFUSION, NORMAL SALINE SOLUTION , 250 CC" completed 10/18/14 [id number]"LOW OSMOLAR CONTRAST MATERIAL, 300-399 MG/ML IODINE C completed ROUTINE VENIPUNCTURE completed 10/28/14 CT ANGIOGRAPHY CHEST completed 10/28/14 FIBRIN DEGRADATION QUANT completed 10/28/14 FIBRINOGEN ACTIVITY completed 10/28/14 THROMBOPLASTIN TIME PARTIAL completed 10/28/14 [id number]"INJECTION, HEPARIN SODIUM, (HEPARIN LOCK FLUSH), PER completed [id number]"INFUSION, NORMAL SALINE SOLUTION , 250 CC" completed 10/28/14 [id number]"LOW OSMOLAR CONTRAST MATERIAL, 300-399 MG/ML IODINE C [...] completed 11/13/14 Encounters Encounter Location Date/Time Registered [facility] 12/19/14 11:07am Registered [facility] 12/12/14 10:29am Registered [facility] 12/05/14 8:59am Registered [facility] 12/02/14 12:58pm Registered [facility] 11/28/14 3:17pm Registered [facility] 11/26/14 1:26pm Registered [facility] 11/13/14 3:59pm Discharged Recurring [facility] 11/03/14 8:09pm Discharged Inpatient [facility] 10/31/14 6:21pm Discharged Recurring [facility] 10/29/14 11:00am Registered Clinic [facility] 10/28/14 10:38am Registered Clinic [facility] 10/18/14 11:53am Registered [facility] 10/18/14 10:26am Registered [facility] 10/07/14 6:54am
--- OUTSIDE RECORDS SUMMARY | 2016-12-20 12:43 | XMS REPORT | Continuity of Care Document ---
Author Author [facility] Organization [facility] Address Unknown Phone Unavailable Support Name Relationship Address Phone PAULO DINH Caregiver [address] [place] [phone] BLAYNE CANDELARIA Next Of Kin Unknown [phone] Insurance Providers Payer Name Policy Number Subscriber Name Relationship [employer] [id number] Pato Candelaria 20 Self Advance Directives Directive [...] Instructions Instructions: Care Instructions: Reason for Hospitalization: LLE Cellulitis I was in the hospital because (patient own words): STAPH INFECTION Discharge Diet: CARDIAC, LOW SODIUM Discharge Activity: ACTIVITY TOLERATED Follow Up Appointments: FOLLOW UP WITH DR. GUZMAN AT [facility] 12/25/14 AT 10:15AM. YOU CAN DO LABWORK AT [facility] THE DAY OF YOUR APPOINTMENT. FOLLOW UP WITH KENYA COLLINS, SHOAIB 01/17/15 10:30AM Patient Instructions: RETURN TO CARE IMMEDIATLELY IF CELLULITIS WORSENS AGAIN AND/OR IF FEVERS, CHILLS, LEG PAINS OCCUR Condition at time of discharge: Good Notify Physician If: worsening chest pain, fever > 101, altered mental status General Information: n/a Condition at time of discharge: Good the coal cutting machine operator page Dr. Brennan or the covering surgeon. *In the event of an emergency, seek medical care at the nearest emergency room.* Condition at time of discharge: Good Plan of Care Discharge Date 11/01/14 4:18pm [...] Vital Signs Vital Response Date/Time Temperature (Fahrenheit) 97.5 deg F (96.8 - 99.1) Temperature (Calculated Celsius) 36.83081 degrees C (36.0 - 37.3) Pulse Rate (adult) 73 bpm (60 - 100) Respiratory Rate 16 breaths/min (10 - 20) O2 Sat by Pulse Oximetry 100 % (90 - 100) Oxygen Delivery Method Room Air Blood Pressure 130/80 mm Hg Blood Pressure Source Automatic Cuff [...] Hepatitis B Core Ab Total performed at [facility] Reference Lab, [address] [place] [id number] Director Public Aster Marvin DO Hepatitis B Surface Ab [...] HCV infection. Hepatitis C RNA performed at [facility] Reference Lab, [address], [place] [address] Director Public Aster Marvin DO Hepatitis C Viral RNA [...] 28, 2013 9:39am 1.0 % H 0-0 RV-Njk-W-Type Natriuretic Peptide April 10, 2014 12:08am 48 [...] Has specimen been collected/obtained? Y Urine Specific [place] December 02, 2014 9:45am 1.015 - Urine [...] 2014 10:20am Name: PATO CANDELARIA Unit #: [id number] : 1985 Sex: M Loc / Svc: KRYSTYNA DOS: 12/12/14 Signed Report #: [id number] DIAGNOSTIC IMAGING REPORT TYPE OF EXAM: CHEST, [...] completed 10/07/14 TTE W/DOPPLER COMPLETE completed 10/07/14 [id number] completed 10/07/14 COMPREHEN METABOLIC PANEL completed 10/18/14 LACTATE (LD) (LDH) ENZYME completed 10/18/14 COMPLETE CBC W/AUTO DIFF WBC completed 10/18/14 CT THORAX W/DYE completed 10/18/14 CT ABD & PELV W/CONTRAST completed 10/18/14 [id number]"INJECTION, HEPARIN SODIUM, (HEPARIN LOCK FLUSH), PER completed "INFUSION, NORMAL SALINE SOLUTION , 250 CC" completed 10/18/14"LOW OSMOLAR CONTRAST MATERIAL, 300-399 MG/ML IODINE C completed ROUTINE VENIPUNCTURE completed 10/28/14 CT ANGIOGRAPHY CHEST completed 10/28/14 FIBRIN DEGRADATION QUANT completed 10/28/14 FIBRINOGEN ACTIVITY completed 10/28/14 THROMBOPLASTIN TIME PARTIAL completed 10/28/14"INJECTION, HEPARIN SODIUM, (HEPARIN LOCK FLUSH), PER completed "INFUSION, NORMAL SALINE SOLUTION , 250 CC" completed 10/28/14"LOW OSMOLAR CONTRAST MATERIAL, 300-399 MG/ML IODINE C [...] completed 11/13/14 Encounters Encounter Location Date/Time Registered [facility] 12/16/14 1:56pm Registered Clinic [facility] 12/12/14 10:29am Registered Clinic [facility] 12/05/14 8:59am Discharged Recurring [facility] 12/02/14 12:58pm Registered [facility] 11/28/14 3:17pm Registered Clinic [facility] 11/26/14 1:26pm Discharged Recurring [facility] 11/14/14 11:45am Registered [facility] 11/13/14 3:59pm Discharged Inpatient [facility] 10/31/14 6:21pm Discharged Recurring [facility] 10/29/14 11:00am Registered Clinic [facility] 10/28/14 10:38am Registered Clinic [facility] 10/18/14 11:53am Registered [facility] 10/18/14 10:26am Registered [facility] 10/07/14 6:54am
--- OUTSIDE RECORDS SUMMARY | 2016-12-20 12:44 | XMS REPORT | Continuity of Care Document ---
Author Author [facility] Organization [facility] Address Unknown Phone Unavailable Support Name Relationship Address Phone PAULO DINH Tressa Caregiver [address] [place] [phone] BLAYNE CANDELARIA Next Of Kin Unknown [phone] Insurance Providers Payer Name Policy Number Subscriber Name Relationship Devan Olsen [employer] [id number] Pato Candelaria 20 Self Medikan [id number] Pato Candelaria 20 Self Advance Directives Directive [...] smoker Hospital Discharge Instructions Instructions: Care Instructions: Nutrition: Breastfeed ad david, Supplement after nursing Discharge Activity: normal Follow Up Appointments: Follow up with volleyball coach 2 weeks in clinic. Call [facility] at [phone] to schedule. Patient Instructions: per protocol Notify Physician If: fever to 100.5, jaundice, breathing too hard to eat or sleep Weight Pounds: 5 (lbs) Weight Ounces: 10.12 (oz) Dismissal Weight: 2.310 g 5 lbs, 1.5 oz Bilirubin Level: 12.6 Congenital Heart Disease Screening Result: Pass 7 (lbs) Weight Ounces: 8.11 (oz) Dismissal Weight: 3.195 Bilirubin Level: 7.1 Plan of Care Discharge Date 11/01/14 4:18pm [...] F (96.8 - 99.1) Temperature (Calculated Celsius) 36.62587 degrees C (36.0 - 37.3) Pulse Rate [...] 36.2 SEC H 24-36 Alanine Aminotransferase (ALT/SGPT) December 02, 2014 9:43am 74 U/L H 21- 72 Albumin December 02, 2014 9:43am 3.7 G/DL N 3.5-5.0 Albumin/Globulin Ratio December 02, 2014 9:43am 1.5 RATIO N 1.1-2.2 Alkaline Phosphatase December 02, 2014 9:43am 65 U/L N 38-126 Anion Gap December 02, 2014 9:43am 12 MEQ/L N 5-15 Anisocytosis December 05, 2013 9:10am 1+ - Aspartate Amino Transf (AST/SGOT) December 02, 2014 9:43am 25 U/L N 17-59 BUN/Creatinine Ratio December 02, 2014 9:43am 30 RATIO H 6-26 Band Neutrophils # December 02, 2014 9:43am 0.3 T/MM3 - Band Neutrophils % December 02, 2014 9:43am 24.0 % DH 0-6 Basophils # (Auto) November 28, 2014 2:55pm 0.0 T/MM3 N 0-0.2 Basophils # (Manual) November 19, 2014 1:50pm 0.1 T/MM3 N 0-0.2 Basophils % (Manual) November 19, 2014 1:50pm 1.0 % N 0-2 Basophils (%) (Auto) November 28, 2014 2:55pm 0.8 % N 0-2 Blood Urea Nitrogen December 02, 2014 9:43am 18.0 MG/DL N 9-20 C-Reactive Protein November 22, 2014 2:25pm < 5.0 MG/L 0-9 Calcium Level December 02, 2014 9:43am 9.0 MG/DL N 8.4-10.2 Calculated Osmolality December 02, 2014 9:43am 279 MOSM/KG N 261-280 Carbon Dioxide Level December 02, 2014 9:43am 26 MEQ/L N 22-30 Chemistry Specimen Hemolysis December 02, 2014 9:43am < 15 0-25 0-25: No Hemolysis.26-70: Slight [...] Phenytoin. Recommend specimen recollection. Chloride Level December 02, 2014 9:43am 106 MEQ/L N 98-107 Cholesterol Level April 06, 2013 5:30pm 175 MG/DL N 132-199 Cholesterol/HDL Ratio April 06, 2013 5:30pm 3.5 RATIO N 0-5.0 Creatinine December 02, 2014 9:43am 0.6 MG/DL L 0.8-1.5 D-Dimer October 28, 2014 10:52am < 150 NG/ML 0-230 <230 NG/ML D-DU= PRESUMPTIVE NEGATIVE FOR PE OR DVT>230 NG/ML D-DU=ADDITIONAL EVAL FOR PE OR DVT RECOMMENDED Eosinophils # (Auto) November 28, 2014 2:55pm 0.1 T/MM3 N 0-0.5 Eosinophils # (Manual) December 02, 2014 9:43am 0.0 T/MM3 N 0-0.5 Eosinophils % (Manual) December 02, 2014 9:43am 4.0 % N 0-4 Eosinophils (%) (Auto) November 28, 2014 2:55pm 2.8 % N 0-4 Fibrinogen October 28, 2014 10:52am 274 MG/DL N 135-357 Globulin December 02, 2014 9:43am 2.4 G/DL N 2.4-3.6 Glomerular Filtration Rate Calc December 02, 2014 9:43am 162 - Glucose Level December 02, 2014 9:43am 91 MG/DL N 75-110 HDL Cholesterol Direct April 06, 2013 5:30pm 50 MG/DL N 40-60 Helicobacter pylori Antibodies November 04, 2014 2:10pm Negative - Hematocrit December 02, 2014 9:43am 29.6 % L 41-53 Hemoglobin December 02, 2014 9:43am 10.2 GM/DL L 13.5-17.5 Hepatitis B Core Total Antibody October 21, 2014 1:35pm Negative - Hepatitis B Core Ab Total performed at [facility], [address] [place] [id number] Paper Bundler Aster Marvin DO Hepatitis B Surface Ab [...] HCV infection. Hepatitis C RNA performed at [facility], [address] [place] [address] Paper Bundler Aster Marvin DO Hepatitis C Viral RNA October 28, 2014 8:30am Not detected IU/mL - Icterus Index December 02, 2014 9:43am < 2 0-7 Immature Granulocyte # (Auto) November 28, 2014 2:55pm 0.01 T/MM3 N 0.00- 0.03 Immature Granulocyte % (Auto) November 28, 2014 2:55pm 0.4 % N 0.0-0.5 LDL Cholesterol, Calculated April 06, 2013 5:30pm 112.6 N 66-159 Lab Scanned Report December 03, 2014 8:32am LAB TEST FORM REQUEST - Lactate Dehydrogenase December 02, 2014 9:43am 283 U/L L 313-618 Lipase April 09, 2014 5:57pm 70 U/L N 23-300 Lymphocytes # (Auto) November 28, 2014 2:55pm 0.3 T/MM3 L 1-4.8 Lymphocytes # (Manual) December 02, 2014 9:43am 0.6 T/MM3 L 1-4.8 Lymphocytes % (Manual) December 02, 2014 9:43am 54.0 % H 23-45 Lymphocytes (%) (Auto) November 28, 2014 2:55pm 10.8 % L 23-45 Magnesium Level December 02, 2014 9:43am 1.9 MG/DL N 1.6-2.3 Mean Corpuscular Hemoglobin December 02, 2014 9:43am 32.2 UUG N 26-34 Mean Corpuscular Hemoglobin Concent December 02, 2014 9:43am 34.5 GM/DL N 31-37 Mean Corpuscular Volume December 02, 2014 9:43am 93.4 UM3 N 80-100 Mean Platelet Volume December 02, 2014 9:43am 8.9 UM3 L 9.4-12.4 Metamyelocytes # December 28, 2013 9:39am 0.2 T/MM3 - Metamyelocytes % December 28, 2013 9:39am 2.0 % H 0-0 Monocytes # (Auto) November 28, 2014 2:55pm 0.1 T/MM3 N 0-0.8 Monocytes # (Manual) December 02, 2014 9:43am 0.0 T/MM3 N 0-0.8 Monocytes % (Manual) December 02, 2014 9:43am 4.0 % N 0-9.0 Monocytes (%) (Auto) November 28, 2014 2:55pm 3.6 % N 0-9.0 Myelocytes # December 28, 2013 9:39am 0.1 T/MM3 - Myelocytes % December 28, 2013 9:39am 1.0 % H 0-0 DB-Zbt-G-Type Natriuretic Peptide April 10, 2014 12:08am 48 PG/ML N 0- 175 Rule in cut points: <50 years old=450; 50-75 years old=900; >75 years old=1800; When utilizing ProBNP rule-in cut points, adjustment for impaired renal function is typically not required. Neutrophils # (Auto) November 28, 2014 2:55pm 2.0 T/MM3 N 1.8-7.7 Neutrophils # (Manual) December 02, 2014 9:43am 0.2 T/MM3 L 1.8-7.7 Neutrophils % (Manual) December 02, 2014 9:43am 14.0 % L 33-66 Neutrophils (%) (Auto) November 28, 2014 2:55pm 81.6 % H 33-66 Nucleated Red Blood Cells November 21, 2014 9:15am 1 - Platelet Count December 02, 2014 9:43am 116 T/MM3 L 130-400 Potassium Level December 02, 2014 9:43am 3.9 MEQ/L N 3.6-5 Procalcitonin November 22, 2014 2:25pm < 0.05 NG/ML - PCT </=0.5 ng/mL - sepsis not likely;PCT >0.5 and </=2 ng/mL - sepsis possible; PCT >2 ng/mL - sepsis likely; PCT >/=10 ng/mL - systemic inflammatory response - sepsis or septic shock highly indicated. Prothromb Time International Ratio April 10, 2014 12:08am 1.42 H 0.81- 1.09 THERAPUTIC RANGE=2.00-3.00 FOR ANTI-THROMBOSIS THERAPUTIC RANGE=2.50- 3.50 FOR IMPLANTED VALVE RDW Standard Deviation December 02, 2014 9:43am 41.4 FL N 36.9-50.2 Reactive Lymphocytes # November 21, 2014 9:15am 0.0 T/MM3 N 0-0 Reactive Lymphocytes % November 21, 2014 9:15am 1.0 % H 0-0 Red Blood Count December 02, 2014 9:43am 3.17 M/MM3 L 4.50-5.90 Red Cell Morphology Comment December 02, 2014 9:43am Normal - Sodium Level December 02, 2014 9:43am 144 MEQ/L N 134-144 Total Bilirubin December 02, 2014 9:43am 0.50 MG/DL N 0.20-1.30 Total Protein December 02, 2014 9:43am 6.1 G/DL L 6.3-8.2 Triglycerides Level April 06, 2013 5:30pm 62 MG/DL N 40-160 Troponin I April 10, 2014 11:45am 0.087 ng/ml N 0-0.12 Turbidity December 02, 2014 9:43am < 20 0-20 Uric Acid December 02, [...] Has specimen been collected/obtained? 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 Coronal and sagittal reformatted images were also obtained. Contrast: Omnipaque 300 100 mL Findings: Chest CT: The prior right suprahilar/paramediastinal mass has nearly resolved, now with no measurable soft tissue density appreciated. Unchanged mildly prominent anterior mediastinal soft tissue, likely related to residual thymic tissue in a patient of this age. No new pulmonary nodule, mass, or focal consolidation. No endoluminal lesion within the tracheobronchial tree. No pleural effusion or pneumothorax. The thyroid gland appears normal. No mediastinal, hilar, or axillary lymphadenopathy. Right IJ Port-A-Cath in place. Redemonstration of a SVC stent. The heart is normal in size without pericardial effusion. The great vessels of the thorax are within normal limits. The esophagus appears normal. No acute thoracic osseous abnormality. Abdomen CT: The liver enhances homogeneously without focal mass. The gallbladder is partially contracted and appears grossly normal. No intrahepatic or extrahepatic biliary ductal dilatation seen. The pancreas enhances homogeneously. The spleen is normal in size and enhancement. Redemonstration of incidental splenules. The adrenal glands are within normal limits. The kidneys enhance symmetrically and appear normal. The ureters are normal in course and caliber. Abdominal aorta is normal in course and caliber. The mesenteric arterial and venous structures appear patent. The stomach is well-distended and appears normal. Small bowel loops are normal in caliber without evidence of obstruction. The colon appears grossly normal. No abnormal appendix visualized. No intra-abdominal free air, free fluid, focal fluid collections, or lymphadenopathy. No acute osseous abnormality of the lumbar spine. Pelvic CT: The bladder is distended and appears normal. The prostate and seminal vesicles appear normal. No pelvic free fluid or lymphadenopathy. No acute osseous abnormality of the pelvis. Impression: 1. Interval near complete resolution of the prior right suprahilar/paramediastinal mass suggestive of treatment response, now with no measurable soft tissue density appreciated. 2. No new pulmonary nodule/mass, thoracic/abdominopelvic lymphadenopathy, or solid visceral mass seen to suggest metastatic disease. 3. Right IJ Port-A-Cath and SVC stent remain in place. . Procedures Procedure Status Date Provider(s) PET IMAGE W/CT SKULL-THIGH completed 09/11/14 [id number]"FLUORODEOXYGLUCOSE F-18 FDG, DIAGNOSTIC, PER STUDY DO completed GATED HEART PLANAR SINGLE completed 10/07/14 TTE W/DOPPLER COMPLETE completed 10/07/14 [id number] completed 10/07/14 COMPREHEN METABOLIC PANEL completed 10/18/14 LACTATE (LD) (LDH) ENZYME completed 10/18/14 COMPLETE CBC W/AUTO DIFF WBC completed 10/18/14 CT THORAX W/DYE completed 10/18/14 CT ABD & PELV W/CONTRAST completed 10/18/14 [id number]"INJECTION, HEPARIN SODIUM, (HEPARIN LOCK FLUSH), PER completed 812970"INFUSION, NORMAL SALINE SOLUTION , 250 CC" completed 10/18/14 [id number]"LOW OSMOLAR CONTRAST MATERIAL, 300-399 MG/ML IODINE C completed ROUTINE VENIPUNCTURE completed 10/28/14 CT ANGIOGRAPHY CHEST completed 10/28/14 FIBRIN DEGRADATION QUANT completed 10/28/14 FIBRINOGEN ACTIVITY completed 10/28/14 THROMBOPLASTIN TIME PARTIAL completed 10/28/14 [id number]"INJECTION, HEPARIN SODIUM, (HEPARIN LOCK FLUSH), PER completed 392355"INFUSION, NORMAL SALINE SOLUTION , 250 CC" completed 10/28/14 [id number]"LOW OSMOLAR CONTRAST MATERIAL, 300-399 MG/ML IODINE C [...] completed 11/13/14 Encounters Encounter Location Date/Time Registered [facility] 12/05/14 8:59am Registered [facility] 12/03/14 8:30am Discharged [facility] 12/02/14 12:58pm Registered [facility] 11/28/14 3:17pm Registered [facility] 11/26/14 1:26pm Discharged Recurring [facility] 11/14/14 11:45am Registered [facility] 11/13/14 3:59pm Discharged Inpatient [facility] 10/31/14 6:21pm Registered [facility] 10/29/14 11:00am Registered [facility] 10/28/14 10:38am Registered [facility] 10/18/14 11:53am Registered [facility] 10/18/14 10:26am Registered [facility] 10/07/14 6:54am Registered [facility] 09/11/14 7:06am
--- OUTSIDE RECORDS SUMMARY | 2016-12-20 12:44 | XMS REPORT | Continuity of Care Document ---
Author Author [facility] Organization [facility] Address Unknown Phone Unavailable Support Name Relationship Address Phone SAY ARROYO MD Caregiver [address] [place] [address] Unavailable JAVID ARROYO Next Of Kin [address] [place] [address] NOK* Insurance Providers Payer Name Policy Number Subscriber Name Relationship Sweetien [id number] Pato Candelaria 20 Self Advance Directives Directive Response Recorded Date/Time Advanced Directives Type None 02/27/14 4:45pm Chief Complaint and Reason for Visit Chief Complaint Chest Pain Reason for Visit Chest pain Problems Medical Problems Problem Onset Date Status [...] Unknown Active Portacath in place Unknown Active Medications Medication Dose Route Sig [...] 02/27/2014 4:45pm When did patient START smoking? AGE 16 05/30/2014 11:47pm Chewing Tobacco Status No 02/13/2014 10:15pm Hx [...] see patient instructions Care Plan Discharge Patient: Goal: Other Patient Instructions: see patient instructions After hours, please call [facility] at [phone] and have the post tronic machine operator page Dr. Brennan or the covering surgeon. *In the event of an emergency, seek medical care at the nearest emergency room.* Condition at time of discharge: Good Plan of Care Discharge Date 04/10/14 7:00pm Disposition 02 TO OBS [facility] Condition at Discharge Improved Instructions/Education Provided Angina Prescriptions See Medications Section Functional Status Query Response Date Recorded Physical Hygiene Self May 30, 2014 11:47pm Disabilities None May 30, 2014 11:47pm Devices Used None May 30, 2014 11:47pm Dressing Self May 30, 2014 11:47pm Ambulation Self May 30, 2014 11:47pm Diet Self May 30, 2014 11:47pm Mental Status Alert May 31, 2014 12:41am Disabilities None May 30, 2014 11:47pm Devices Used None May 30, 2014 11:47pm Physical Hygiene Self May 30, 2014 11:47pm Dressing Self May 30, 2014 11:47pm Ambulation Self May 30, 2014 11:47pm Diet Self May 30, 2014 11:47pm Allergies, Adverse [...] Vital Signs Vital Response Date/Time Temperature (Fahrenheit) 96.5 deg F (96.8 - 99.1) Temperature (Calculated Celsius) 35.14937 degrees C (36.0 - 37.3) Pulse Rate (adult) 82 bpm (60 - 100) Respiratory Rate 20 breaths/min (10 - 20) O2 Sat by Pulse Oximetry 99 % (90 - 100) Blood Pressure 133/84 mm Hg Results Test Source Date Result Interp. Ref. [...] Has specimen been collected/obtained? Y Urine Specific [place] February 27, 2014 3:45pm >=1.030 H - [...] 20, 2014 9:16pm LAB TEST FORM REQUEST [id number] - HDL Cholesterol Direct April 06, 2013 [...] April 10, 2014 12:08am < 2 0-7 SP-Osm-H-Type Natriuretic Peptide April 10, 2014 12:08am 48 PG/ML N 0- 175 Rule in cut points: <50 years old=450; 50-75 years old=900; >75 years old=1800; When utilizing ProBNP rule-in cut points, adjustment for impaired renal function is typically not required. Blood Culture Blood January 19, 2014 1:45am NO GROWTH AFTER 5 DAYS Name: PATO CANDELARIA Unit #: [id number] : 1985 Sex: M Loc / [facility] DOS: 04/09/14 Signed Report #: [id number] DIAGNOSTIC IMAGING REPORT TYPE OF EXAM: CHEST 1 VIEW Dictated By: IVAN ANGULO MD INDICATION: ITS.REASON: CHEST PAIN CHEST [...] Encounters Encounter Location Date/Time Departed Emergency Room [facility] 05/30/14 11:34pm Discharged Inpatient [facility] 04/10/14 12:20am Departed Emergency Room [facility] 04/09/14 5:30pm Registered Clinic [facility] 04/08/14 7:59am Discharged Recurring [facility] 03/20/14 2:10pm Registered Clinic [facility] 03/18/14 12:52pm Discharged [facility] 01/16/14 9:36am Recent Diagnosis
--- OUTSIDE RECORDS SUMMARY | 2016-12-20 12:44 | XMS REPORT | Continuity of Care Document ---
Author Author [facility] Organization [facility] Address Unknown Phone Unavailable Support Name Relationship Address Phone BLAYNE ZAMORA FACS, MD Caregiver [address] [place] [address] [place] [address] Unavailable JG CANDELARIA Next Of Kin [address] [place], [place] [address] Insurance Providers Guarantor Pato Candelaria Address [address] [place] [id number] Email [email or web address] Payer [facility] Policy Number [id number] Subscriber's Name Pato Candelaria Relationship 18 Self Effective Date 16 Expiration Date 16 Advance Directives Directive Response Recorded Date/Time Advanced Directives Type None 02/27/14 4:45pm Ordered Resuscitation Status Full Code 08/11/16 3:12pm Resuscitation Documents on File No 08/16/16 10:45am DPOA for Healthcare Only No 08/16/16 10:45am Living Will No 08/16/16 10:45am Problems Active Problems Medical Problem Onset Date Status Atrial fibrillation, new onset Unknown Acute Chest pain Unknown Acute Chest pain Unknown Acute Chest pain Unknown Acute Deep vein thrombosis (DVT) Unknown Chronic Hypokalemia Unknown Acute Inadequate anticoagulation Unknown Acute Infected dental carries Unknown Acute Leg cramps Unknown Acute Leg cramps Unknown Acute Methamphetamine abuse Unknown Acute Nausea & vomiting Unknown Acute Nausea & vomiting Unknown Acute Nausea & vomiting Unknown Acute Nausea & vomiting Unknown Acute Non-Hodgkin lymphoma Unknown Acute Portacath in place Unknown Acute Portacath in place Unknown Acute Superior vena cava syndrome Unknown Chronic Tobacco abuse Unknown Acute URI, acute Unknown Acute Past Problems Medical Problem Onset Date Atypical chest pain Unknown Medications Current Home Medications Medication Dose Units Route Directions Days Qty Instructions Start Date Ibuprofen 200 Mg Tablet 400 Mg Oral Every 6 Hours as needed for Pain 14 Days 112 Tablet 08/16/16 Past Home Medications Medication Directions Ordered Status Miscellaneous Information (No Known Medications) Misc, 07/16/12 Discontinued Sertraline Hcl (Zoloft) 50 Mg Tablet, 50 Mg Oral Daily 01/05/14 Discontinued Warfarin Sodium 5 Mg Tablet, 5 Mg Oral 04/10/14 Discontinued Warfarin Sodium 7.5 Mg Tablet, 7.5 Mg Oral Every Other Day 04/09/14 Discontinued Warfarin Sodium 5 Mg Tablet, 5 Mg Oral Daily 11/22/13 Discontinued Social History Social History Problem Response Recorded Date/Time Onset Date Status Reason for Hospitalization REMOVE PORT A CATH 08/16/2016 1:03pm Not Applicable Not Applicable Chewing Tobacco Status No 02/13/2014 10:15pm Not Applicable Not Applicable Hx Substance Use Y LAST USED 11/22/12, "MOSTLY METH" 08/16/2016 10:32am Not Applicable Not Applicable Hx Alcohol Use Y OCC 08/16/2016 10:32am Not Applicable Not Applicable Has the pt used tobacco in the last 12 months Yes 08/16/2016 10:32am Not Applicable Not Applicable Tobacco Usage smoke 11/01/2014 3:08pm Not Applicable Not Applicable Query Response Start Date Stop Date Smoking Status Current every day smoker Hospital Discharge Instructions Instructions: Care Instructions: I was in the hospital because (patient own words): REMOVE MY PORT FROM MY CHEST Discharge Diet: regular Discharge Activity: Do not drive, operate machinery for 24 hours after surgery or while taking pain medication. Follow Up Appointments: Follow up with Leila Roldan APRN/Dr. Zamora in 2-3 weeks Pending Lab / Results: No Pending Lab Expected Signs/Symptoms: bruising and tenderness at old port site for a week to 10 days Notify Physician If: 1. Call your surgeon if you are having problems relating to your surgery at [phone]. 2. Problems such as: Temp above 101.5 degrees You develop redness, excessive swelling of the incision, increasing pain or excessive foul smelling drainage. 3. If the office is closed, call [facility] at [phone] and have your Surgeon paged. During Business Hours:: Call your surgeon at at [phone]. After Business Hours:: If the office is closed, call [facility] at [phone] and have your Surgeon paged. Pain Management/Treatment: Follow prescriptions as prescribed Wound/Incision Care: Leave incision open to air. Do not rub or pick off the skin glue. Condition at time of discharge: Good Plan of Care Discharge Date 08/16/16 1:26pm Instructions/Education Provided [facility] Prescriptions See Medication Section Functional Status Query Response Date Recorded Ability to complete ADL's impeded by No change August 16, 2016 10:45am Allergies, Adverse Reactions, Alerts Allergen Type Severity Reaction Status Last Updated Nickel Allergy Mild RASH Active 08/11/16 Immunizations Query Response on File Recorded Date/Time Hx Influenza Vaccination No 08/16/16 10:32am Hx Pneumococcal Vaccination No 08/16/16 10:32am Hx Tetanus, Diptheria, Pertussis No 05/30/14 11:47pm Hx Influenza Vaccination No 08/16/16 10:32am Hx Tetanus Diptheria No 05/30/14 11:47pm Hx Tetanus, Diptheria, Pertussis No 05/30/14 11:47pm Influenza Vaccine Hx NONE 03/18/16 5:47pm Vital Signs Acute Vital Signs Vital Response Date/Time Temperature (Fahrenheit) 98.4 deg F (96.8 - 99.1) 08/16/2016 1:10pm Temperature (Calculated Celsius) 36.06438 degrees C (36.0 - 37.3) 08/16/2016 1:10pm Temperature Source Oral 08/16/2016 1:10pm Pulse Rate (adult) 69 bpm (60 - 100) 08/16/2016 1:25pm Respiratory Rate 16 breaths/min (10 - 20) 08/16/2016 1:25pm O2 Sat by Pulse Oximetry 95 % (90 - 100) 08/16/2016 1:25pm Oxygen Delivery Method Room Air 08/16/2016 1:25pm Blood Pressure 125/84 mm Hg 08/16/2016 1:25pm Blood Pressure Source Automatic Cuff 08/16/2016 1:25pm Height (Feet) 5 feet 08/16/2016 10:24am Height (Inches) 8.00 inches 08/16/2016 10:24am Weight (Kilograms) 83.000 kg 08/16/2016 10:24am Body Mass Index (BMI) 27.8 08/16/2016 10:24am Results Laboratory Results Test Name Result Units Flags Reference Collection Date/Time Result Date/ Time Comments White Blood Count 8.8 T/MM3 4.5-11.0 08/16/2016 10:46am 08/16/2016 10: 52am Red Blood Count 5.20 M/MM3 4.50-5.90 08/16/2016 10:46am 08/16/2016 10: 52am Hemoglobin 16.5 GM/DL 13.5-17.5 08/16/2016 10:46am 08/16/2016 10:52am Hematocrit 47.3 % 41-53 08/16/2016 10:46am 08/16/2016 10:52am Mean Corpuscular Volume 91.0 UM3 80-100 08/16/2016 10:46am 08/16/2016 10:52am Mean Corpuscular Hemoglobin 31.7 UUG 26-34 08/16/2016 10:46am 2015 10:52am Mean Corpuscular Hemoglobin Concent 34.9 GM/DL 31-37 08/16/2016 10:46am 08/16/2016 10:52am RDW Standard Deviation 40.3 FL 36.9-50.2 08/16/2016 10:46am 08/16/2016 10:52am Platelet Count 201 T/MM3 130-400 08/16/2016 10:46am 08/16/2016 10:52am Mean Platelet Volume 9.2 UM3 L 9.4-12.4 08/16/2016 10:46am 08/16/2016 10 :52am Neutrophils (%) (Auto) 70.7 % H 33-66 08/16/2016 10:46am 08/16/2016 10: 52am Lymphocytes (%) (Auto) 17.8 % L 23-45 08/16/2016 10:46am 08/16/2016 10: 52am Monocytes (%) (Auto) 8.7 % 0-9.0 08/16/2016 10:46am 08/16/2016 10:52am Eosinophils (%) (Auto) 2.4 % 0-4 08/16/2016 10:46am 08/16/2016 10:52am Basophils (%) (Auto) 0.3 % 0-2 08/16/2016 10:46am 08/16/2016 10:52am Immature Granulocyte % (Auto) 0.1 % 0.0-0.5 08/16/2016 10:46am 2015 10:52am Absolute Neutrophils (auto) 6.2 T/MM3 1.8-7.7 08/16/2016 10:46am 2015 10:52am Absolute Lymphocytes (auto) 1.6 T/MM3 1-4.8 08/16/2016 10:46am 2015 10:52am Absolute Monocytes (auto) 0.8 T/MM3 0-0.8 08/16/2016 10:46am 2015 10:52am Absolute Eosinophils (auto) 0.2 T/MM3 0-0.5 08/16/2016 10:46am 2015 10:52am Absolute Basophils (auto) 0.0 T/MM3 0-0.2 08/16/2016 10:46am 2015 10:52am Absolute Immature Granulocyte (auto 0.01 T/MM3 0.00-0.03 08/16/2016 10: 46am 08/16/2016 10:52am Procedures Procedure Status Date Provider(s) Removal of tunneled central venous catheter with port Completed 08/16/16 BLAYNE ZAMORA MD, FACS, CWS Encounters Encounter Location Arrival/Admit Date Discharge/Depart Date Attending Provider Departed [facility] 08/16/16 10:13am 08/16/16 1 :26pm BLAYNE ZAMORA FACS CWS
--- OUTSIDE RECORDS SUMMARY | 2016-12-20 12:44 | XMS REPORT | Continuity of Care Document ---
Author Author [facility] Organization [facility] Address Unknown Phone Unavailable Support Name Relationship Address Phone PAULO DINH Caregiver [address] [place] [phone] BLAYNE CANDELARIA Next Of Kin Unknown [phone] Insurance Providers Payer Name Policy Number Subscriber Name Relationship [employer] [id number] Pato Candelaria 20 Self Advance Directives Directive [...] Instructions Instructions: Care Instructions: Reason for Hospitalization: epistaxis I was in the hospital because (patient own words): A NOSE BLEED Discharge Diet: Cardiac diet Discharge Activity: as tolerated Follow Up Appointments: f/u with Dr Angulo in [address] [facility]. Patient Instructions: should symptoms return you could contact Dr angulo through the office or return to the ED for emergent evaluation Condition at time of discharge: Good Condition at time of discharge: Good Bilirubin Level: 6.9 Congenital Heart Disease Screening Result: Pass Plan of Care Discharge Date 11/01/14 [...] F (96.8 - 99.1) Temperature (Calculated Celsius) 36.60563 degrees C (36.0 - 37.3) Pulse Rate [...] N 24 -36 Alanine Aminotransferase (ALT/SGPT) December 12, 2014 10:20am 50 U/L N 21- 72 Albumin December 12, 2014 10:20am 4.1 G/DL N 3.5-5.0 Albumin/Globulin Ratio December 12, 2014 10:20am 1.5 RATIO N 1.1-2.2 Alkaline Phosphatase December 12, 2014 10:20am 67 U/L N 38-126 Anion Gap December 12, 2014 10:20am 11 MEQ/L N 5-15 Anisocytosis December 05, 2013 9:10am 1+ - Aspartate Amino Transf (AST/SGOT) December 12, 2014 10:20am 26 U/L N 17-59 BUN/Creatinine Ratio December 12, 2014 10:20am 16 RATIO N 6-26 Band Neutrophils # December 02, 2014 9:43am 0.3 T/MM3 - Band Neutrophils % December 02, 2014 9:43am 24.0 % DH 0-6 Basophils # (Auto) December 12, 2014 10:20am 0.0 T/MM3 N 0-0.2 Basophils # (Manual) November 19, 2014 1:50pm 0.1 T/MM3 N 0-0.2 Basophils % (Manual) November 19, 2014 1:50pm 1.0 % N 0-2 Basophils (%) (Auto) December 12, 2014 10:20am 0.4 % N 0-2 Blood Urea Nitrogen December 12, 2014 10:20am 11.0 MG/DL N 9-20 C-Reactive Protein November 22, 2014 2:25pm < 5.0 MG/L 0-9 Calcium Level December 12, 2014 10:20am 9.3 MG/DL N 8.4-10.2 Calculated Osmolality December 12, 2014 10:20am 274 MOSM/KG N 261-280 Carbon Dioxide Level December 12, 2014 10:20am 26 MEQ/L N 22-30 Chemistry Specimen Hemolysis December 12, 2014 10:20am < 15 0-25 0-25: No Hemolysis.26-70: Slight [...] Phenytoin. Recommend specimen recollection. Chloride Level December 12, 2014 10:20am 106 MEQ/L N 98-107 Cholesterol Level April 06, 2013 5:30pm 175 MG/DL N 132-199 Cholesterol/HDL Ratio April 06, 2013 5:30pm 3.5 RATIO N 0-5.0 Creatinine December 12, 2014 10:20am 0.7 MG/DL L 0.8-1.5 D-Dimer October 28, 2014 10:52am < 150 NG/ML 0-230 <230 NG/ML D-DU= PRESUMPTIVE NEGATIVE FOR PE OR DVT>230 NG/ML D-DU=ADDITIONAL EVAL FOR PE OR DVT RECOMMENDED Eosinophils # (Auto) December 12, 2014 10:20am 0.1 T/MM3 N 0-0.5 Eosinophils # (Manual) December 02, 2014 9:43am 0.0 T/MM3 N 0-0.5 Eosinophils % (Manual) December 02, 2014 9:43am 4.0 % N 0-4 Eosinophils (%) (Auto) December 12, 2014 10:20am 1.4 % N 0-4 Fibrinogen October 28, 2014 10:52am 274 MG/DL N 135-357 Globulin December 12, 2014 10:20am 2.7 G/DL N 2.4-3.6 Glomerular Filtration Rate Calc December 12, 2014 10:20am 135 - Glucose Level December 12, 2014 10:20am 95 MG/DL N 75-110 HDL Cholesterol Direct April 06, 2013 5:30pm 50 MG/DL N 40-60 Helicobacter pylori Antibodies November 04, 2014 2:10pm Negative - Hematocrit December 12, 2014 10:20am 31.8 % L 41-53 Hemoglobin December 12, 2014 10:20am 11.5 GM/DL L 13.5-17.5 Hepatitis B Core Total Antibody October 21, 2014 1:35pm Negative - Hepatitis B Core Ab Total performed at [facility] Reference Lab, [address] [place] [address] Drug Enforcement Administration Agent Aster Marvin DO Hepatitis B Surface Ab [...] HCV infection. Hepatitis C RNA performed at [facility] Reference Lab, [address] [place] [address] Drug Enforcement Administration Agent Aster Marvin DO Hepatitis C Viral RNA October 28, 2014 8:30am Not detected IU/mL - Icterus Index December 12, 2014 10:20am < 2 0-7 Immature Granulocyte # (Auto) December 12, 2014 10:20am 0.03 T/MM3 N 0.00- 0.03 Immature Granulocyte % (Auto) December 12, 2014 10:20am 0.6 % H 0.0-0.5 LDL Cholesterol, Calculated April 06, 2013 5:30pm 112.6 N 66-159 Lab Scanned Report December 12, 2014 5:24pm LAB TEST FORM REQUEST - Lactate Dehydrogenase December 12, 2014 10:20am 404 U/L N 313-618 Lipase April 09, 2014 5:57pm 70 U/L N 23-300 Lymphocytes # (Auto) December 12, 2014 10:20am 0.5 T/MM3 L 1-4.8 Lymphocytes # (Manual) December 02, 2014 9:43am 0.6 T/MM3 L 1-4.8 Lymphocytes % (Manual) December 02, 2014 9:43am 54.0 % H 23-45 Lymphocytes (%) (Auto) December 12, 2014 10:20am 10.2 % L 23-45 Magnesium Level December 02, 2014 9:43am 1.9 MG/DL N 1.6-2.3 Mean Corpuscular Hemoglobin December 12, 2014 10:20am 33.5 UUG N 26-34 Mean Corpuscular Hemoglobin Concent December 12, 2014 10:20am 36.2 GM/DL N 31-37 Mean Corpuscular Volume December 12, 2014 10:20am 92.7 UM3 N 80-100 Mean Platelet Volume December 12, 2014 10:20am 9.5 UM3 N 9.4-12.4 Metamyelocytes # December 28, 2013 9:39am 0.2 T/MM3 - Metamyelocytes % December 28, 2013 9:39am 2.0 % H 0-0 Monocytes # (Auto) December 12, 2014 10:20am 0.5 T/MM3 N 0-0.8 Monocytes # (Manual) December 02, 2014 9:43am 0.0 T/MM3 N 0-0.8 Monocytes % (Manual) December 02, 2014 9:43am 4.0 % N 0-9.0 Monocytes (%) (Auto) December 12, 2014 10:20am 10.6 % H 0-9.0 Myelocytes # December 28, 2013 9:39am 0.1 T/MM3 - Myelocytes % December 28, 2013 9:39am 1.0 % H 0-0 JK-Ojb-J-Type Natriuretic Peptide April 10, 2014 12:08am 48 PG/ML N 0- 175 Rule in cut points: <50 years old=450; 50-75 years old=900; >75 years old=1800; When utilizing ProBNP rule-in cut points, adjustment for impaired renal function is typically not required. Neutrophils # (Auto) December 12, 2014 10:20am 3.9 T/MM3 N 1.8-7.7 Neutrophils # (Manual) December 02, 2014 9:43am 0.2 T/MM3 L 1.8-7.7 Neutrophils % (Manual) December 02, 2014 9:43am 14.0 % L 33-66 Neutrophils (%) (Auto) December 12, 2014 10:20am 76.8 % H 33-66 Nucleated Red Blood Cells November 21, 2014 9:15am 1 - Platelet Count December 12, 2014 10:20am 196 T/MM3 N 130-400 Potassium Level December 12, 2014 10:20am 4.2 MEQ/L N 3.6-5 Procalcitonin November 22, 2014 [...] FOR IMPLANTED VALVE RDW Standard Deviation December 12, 2014 10:20am 47.4 FL N 36.9-50.2 Reactive Lymphocytes # November 21, 2014 9:15am 0.0 T/MM3 N 0-0 Reactive Lymphocytes % November 21, 2014 9:15am 1.0 % H 0-0 Red Blood Count December 12, 2014 10:20am 3.43 M/MM3 L 4.50-5.90 Red Cell Morphology Comment December 02, 2014 9:43am Normal - Sodium Level December 12, 2014 10:20am 143 MEQ/L N 134-144 Total Bilirubin December 12, 2014 10:20am 0.60 MG/DL N 0.20-1.30 Total Protein December 12, 2014 10:20am 6.8 G/DL N 6.3-8.2 Triglycerides Level April 06, 2013 5:30pm 62 MG/DL N 40-160 Troponin I April 10, 2014 11:45am 0.087 ng/ml N 0-0.12 Turbidity December 12, 2014 10:20am < 20 0-20 Uric Acid December 02, [...] Has specimen been collected/obtained? Y Urine Specific [place] December 02, 2014 9:45am 1.015 - Urine [...] MMOL/L N 0.6-2.2 White Blood Count December 12, 2014 10:20am 5.1 T/MM3 N 4.5-11.0 Gram Stain Sputum-Expectorated Sputum December 12, 2014 10:20am Blood Culture Catheter/Port Blood December 12, 2014 10:20am NO GROWTH AFTER 24 HOURS Name: PATO CANDELARIA Unit #: [id number] : 1985 Sex: M Loc / Svc: KRYSTYNA DOS: 12/12/14 Signed Report #: [id number] DIAGNOSTIC IMAGING REPORT TYPE OF EXAM: CHEST, [...] completed 10/07/14 TTE W/DOPPLER COMPLETE completed 10/07/14 [id number] completed 10/07/14 COMPREHEN METABOLIC PANEL completed 10/18/14 LACTATE (LD) (LDH) ENZYME completed 10/18/14 COMPLETE CBC W/AUTO DIFF WBC completed 10/18/14 CT THORAX W/DYE completed 10/18/14 CT ABD & PELV W/CONTRAST completed 10/18/14 [id number]"INJECTION, HEPARIN SODIUM, (HEPARIN LOCK FLUSH), PER completed [id number]"INFUSION, NORMAL SALINE SOLUTION , 250 CC" completed 10/18/14 [id number]"LOW OSMOLAR CONTRAST MATERIAL, 300-399 MG/ML IODINE C completed ROUTINE VENIPUNCTURE completed 10/28/14 CT ANGIOGRAPHY CHEST completed 10/28/14 FIBRIN DEGRADATION QUANT completed 10/28/14 FIBRINOGEN ACTIVITY completed 10/28/14 THROMBOPLASTIN TIME PARTIAL completed 10/28/14 [id number]"INJECTION, HEPARIN SODIUM, (HEPARIN LOCK FLUSH), PER completed [id number]"INFUSION, NORMAL SALINE SOLUTION , 250 CC" completed 10/28/14 [id number]"LOW OSMOLAR CONTRAST MATERIAL, 300-399 MG/ML IODINE C [...] completed 11/13/14 Encounters Encounter Location Date/Time Registered Clinic [facility] 12/12/14 10:29am Registered [facility] 12/12/14 10:21am Registered Clinic [facility] 12/05/14 8:59am Discharged Recurring [facility] 12/02/14 12:58pm Registered Clinic [facility] 11/28/14 3:17pm Registered Clinic [facility] 11/26/14 1:26pm Discharged Recurring [facility] 11/14/14 11:45am Registered Clinic [facility] 11/13/14 3:59pm Discharged Inpatient [facility] 10/31/14 6:21pm Discharged Recurring [facility] 10/29/14 11:00am Registered Clinic [facility] 10/28/14 10:38am Registered Clinic [facility] 10/18/14 11:53am Registered Clinic [facility] 10/18/14 10:[address] Clinic [facility] 10/07/14 6:54am
--- OUTSIDE RECORDS SUMMARY | 2016-12-20 12:44 | XMS REPORT | Continuity of Care Document ---
Author Author [facility] Organization [facility] Address Unknown Phone Unavailable Support Name Relationship Address Phone PAULO DINH Caregiver [address] [place] [phone] BLAYNE CANDELARIA Next Of Kin Unknown [phone] Insurance Providers Payer Name Policy Number Subscriber Name Relationship Sweetien [id number] Pato Candelaria 20 Self Advance Directives Directive [...] Instructions Instructions: Care Instructions: Reason for Hospitalization: chest pain I was in the hospital because (patient own words): STATES,"I WAS HAVING CHEST PAIN AT WORK. Discharge Diet: Heart Healthy Follow Up Appointments: Follow-up with Dr. Henning in 4 weeks. Call [phone] to schedule. FOLLOW UP APPOINTMENT IS ON 01-10-15 AT 8:20 AM. Condition at time of discharge: Fair Plan [...] F (96.8 - 99.1) Temperature (Calculated Celsius) 35.95058 degrees C (36.0 - 37.3) Pulse Rate [...] Hepatitis B Core Ab Total performed at [facility] Reference Lab, [address] [place] [address] Syruper Aster Marvin DO Hepatitis B Surface Ab [...] HCV infection. Hepatitis C RNA performed at [facility] Reference Lab, [address] [place] [address] Syruper Aster Marvin DO Hepatitis C Viral RNA [...] 28, 2013 9:39am 1.0 % H 0-0 [id number]-[id number]-Type Natriuretic Peptide April 10, 2014 12:08am 48 [...] 2014 12:00am 0-1 /HPF - Urine Specific [place] December 19, 2014 12:00am >=1.030 H - [...] 2014 10:20am Name: PATO CANDELARIA Unit #: [id number] : 1985 Sex: M Loc / Svc: MED DOS: 10/29/14 Signed Report #: [id number] DIAGNOSTIC IMAGING REPORT TYPE OF EXAM: CHEST, [...] completed 10/07/14 TTE W/DOPPLER COMPLETE completed 10/07/14 [id number] completed 10/07/14 COMPREHEN METABOLIC PANEL completed 10/18/14 LACTATE (LD) (LDH) ENZYME completed 10/18/14 COMPLETE CBC W/AUTO DIFF WBC completed 10/18/14 CT THORAX W/DYE completed 10/18/14 CT ABD & PELV W/CONTRAST completed 10/18/14 [id number]"INJECTION, HEPARIN SODIUM, (HEPARIN LOCK FLUSH), PER completed [id number]"INFUSION, NORMAL SALINE SOLUTION , 250 CC" completed 10/18/14 [id number]"LOW OSMOLAR CONTRAST MATERIAL, 300-399 MG/ML IODINE C completed ROUTINE VENIPUNCTURE completed 10/28/14 CT ANGIOGRAPHY CHEST completed 10/28/14 FIBRIN DEGRADATION QUANT completed 10/28/14 FIBRINOGEN ACTIVITY completed 10/28/14 THROMBOPLASTIN TIME PARTIAL completed 10/28/14 [id number]"INJECTION, HEPARIN SODIUM, (HEPARIN LOCK FLUSH), PER completed [id number]"INFUSION, NORMAL SALINE SOLUTION , 250 CC" completed 10/28/14 [id number]"LOW OSMOLAR CONTRAST MATERIAL, 300-399 MG/ML IODINE C [...] completed 11/13/14 Encounters Encounter Location Date/Time Registered [facility] 12/19/14 11:07am Registered Clinic [facility] 12/12/14 10:29am Registered Clinic [facility] 12/05/14 8:59am Registered [facility] 12/02/14 12:58pm Registered Clinic [facility] 11/28/14 3:17pm Registered Clinic [facility] 11/26/14 1:26pm Registered Clinic [facility] 11/13/14 3:59pm Discharged Recurring [facility] 11/03/14 8:09pm Discharged Inpatient [facility] 10/31/14 6:21pm Discharged Recurring [facility] 10/29/14 11:00am Registered Clinic [facility] 10/28/14 10:38am Registered Clinic [facility] 10/18/14 11:53am Registered Clinic [facility] 10/18/14 10:26am Registered [facility] 10/07/14 6:54am
--- OUTSIDE RECORDS SUMMARY | 2016-12-20 12:44 | XMS REPORT | Continuity of Care Document ---
Author Author [facility] Organization [facility] Address Unknown Phone Unavailable Support Name Relationship Address Phone PAULO DINH Tressa Caregiver [address] [place] [phone] Insurance Providers Payer Name Policy Number Subscriber Name Relationship Jayashree [id number] Pato Candelaria 20 Self Advance Directives Directive Response Recorded Date/Time Advanced Directives Type None 02/27/14 4:45pm Ordered Resuscitation Status Full Code 10/31/14 6:21pm Resuscitation Documents on File No 10/28/14 3:25pm Problems Medical Problems Problem Onset Date Status [...] Tab PO DAILY 0 Qty 10/28/14 Active Social History Social History Problem Response Recorded Date/Time Chewing Tobacco Status No 02/13/2014 10:15pm Hx Substance Use Y LAST USED 11/22/12, "MOSTLY METH" 05/30/2014 11:47pm Hx Alcohol Use Y OCC 05/30/2014 11:47pm Has the pt used tobacco in the last 12 months Yes 10/28/2014 3:37pm Tobacco Usage smoke 11/01/2014 3:08pm Query Response Start Date Stop Date Smoking Status Current every day smoker Hospital Discharge Instructions No hospital discharge instructions. Plan of Care No plan of care. Functional Status Query Response Date Recorded Physical Hygiene Self May 30, 2014 11:47pm Physical Hygiene Self May 30, 2014 11:47pm Allergies, Adverse Reactions, Alerts Allergen Type Severity Reaction Status Last Updated Nickel Allergy Mild RASH Active 04/10/14 Immunizations Name Given Type Hx Influenza Vaccination N rerfused Historical Hx Pneumococcal Vaccination N contraindicated Historical Hx Tetanus, Diptheria, Pertussis No Historical Hx Influenza Vaccination N rerfused Historical Hx Tetanus Diptheria No Historical Hx Tetanus, Diptheria, Pertussis No Historical Vital Signs Acute Vital Signs Vital Response Date/Time Temperature (Fahrenheit) 96.8 deg F (96.8 - 99.1) Temperature (Calculated Celsius) 36.44051 degrees C (36.0 - 37.3) Pulse Rate (adult) 78 bpm (60 - 100) Respiratory Rate 16 breaths/min (10 - 20) O2 Sat by Pulse Oximetry 96 % (90 - 100) Oxygen Delivery Method Room Air Blood Pressure 97/52 mm Hg Blood Pressure Source Automatic Cuff Weight (Kilograms) 73.600 kg Height 5 ft 7 in Weight 162 lb Body Mass Index 25.0 kg/m^2 Results Test Source Date Result Interp. Ref. Range Comments Activated Partial Thromboplast Time October 28, 2014 10:52am 36.2 SEC H 24-36 Alanine Aminotransferase (ALT/SGPT) November 01, 2014 7:34am 38 U/L N 21 -72 Albumin November 01, 2014 7:34am 3.9 G/DL N 3.5-5.0 Albumin/Globulin Ratio November 01, 2014 7:34am 1.5 RATIO N 1.1-2.2 Alkaline Phosphatase November 01, 2014 7:34am 56 U/L N 38-126 Anion Gap November 01, 2014 7:34am 10 MEQ/L N 5-15 Anisocytosis December 05, 2013 9:10am 1+ - Aspartate Amino Transf (AST/SGOT) November 01, 2014 7:34am 14 U/L L 17- 59 BUN/Creatinine Ratio November 01, 2014 7:34am 23 RATIO N 6-26 Band Neutrophils # November 01, 2014 7:34am 0.4 T/MM3 - Band Neutrophils % November 01, 2014 7:34am 5.0 % N 0-6 Basophils # (Auto) October 31, 2014 1:56pm 0.0 T/MM3 N 0-0.2 Basophils # (Manual) December 28, 2013 9:39am 0.1 T/MM3 N 0-0.2 Basophils % (Manual) December 28, 2013 9:39am 1.0 % N 0-2 Basophils (%) (Auto) October 31, 2014 1:56pm 0.2 % N 0-2 Blood Urea Nitrogen November 01, 2014 7:34am 16.0 MG/DL N 9-20 Calcium Level November 01, 2014 7:34am 9.4 MG/DL N 8.4-10.2 Calculated Osmolality November 01, 2014 7:34am 274 MOSM/KG N 261-280 Carbon Dioxide Level November 01, 2014 7:34am 28 MEQ/L N 22-30 Chemistry Specimen Hemolysis November 01, 2014 7:34am < 15 0-25 0-25 : No Hemolysis.26-70: Slight Hemolysis - can falsely [...] Phenytoin. Recommend specimen recollection. Chloride Level November 01, 2014 7:34am 104 MEQ/L N 98-107 Cholesterol Level April 06, 2013 5:30pm 175 MG/DL N 132-199 Cholesterol/HDL Ratio April 06, 2013 5:30pm 3.5 RATIO N 0-5.0 Creatinine November 01, 2014 7:34am 0.7 MG/DL DL 0.8-1.5 D-Dimer October 28, 2014 10:52am < 150 NG/ML 0-230 <230 NG/ML D-DU= PRESUMPTIVE NEGATIVE FOR PE OR DVT>230 NG/ML D-DU=ADDITIONAL EVAL FOR PE OR DVT RECOMMENDED Eosinophils # (Auto) October 31, 2014 1:56pm 0.0 T/MM3 N 0-0.5 Eosinophils # (Manual) February 13, 2014 10:57pm 0.2 T/MM3 N 0-0.5 Eosinophils % (Manual) February 13, 2014 10:57pm 3.0 % N 0-4 Eosinophils (%) (Auto) October 31, 2014 1:56pm 0.4 % N 0-4 Fibrinogen October 28, 2014 10:52am 274 MG/DL N 135-357 Globulin November 01, 2014 7:34am 2.6 G/DL N 2.4-3.6 Glomerular Filtration Rate Calc November 01, 2014 7:34am 135 - Glucose Level November 01, 2014 7:34am 96 MG/DL N 75-110 HDL Cholesterol Direct April 06, 2013 5:30pm 50 MG/DL N 40-60 Hematocrit November 01, 2014 7:34am 42.4 % N 41-53 Hemoglobin November 01, 2014 7:34am 14.4 GM/DL N 13.5-17.5 Hepatitis B Core Total Antibody October 21, 2014 1:35pm Negative - Hepatitis B Core Ab Total performed at [facility] Reference Lab, [address] [place] [address] Student Support Counselor Aster Marvin DO Hepatitis B Surface Ab [...] HCV infection. Hepatitis C RNA performed at [facility] Reference Lab, [address] [place] [address] Student Support Counselor Aster Marvin DO Hepatitis C Viral RNA October 28, 2014 8:30am Not detected IU/mL - Icterus Index November 01, 2014 7:34am < 2 0-7 Immature Granulocyte # (Auto) October 31, 2014 1:56pm 0.02 T/MM3 N 0.00 -0.03 Immature Granulocyte % (Auto) October 31, 2014 1:56pm 0.2 % N 0.0-0.5 LDL Cholesterol, Calculated April 06, 2013 5:30pm 112.6 N 66-159 Lab Scanned Report October 28, 2014 1:30pm LAB TEST FORM REQUEST - Lactate Dehydrogenase November 01, 2014 7:34am 286 U/L L 313-618 Lipase April 09, 2014 5:57pm 70 U/L N 23-300 Lymphocytes # (Auto) October 31, 2014 1:56pm 0.7 T/MM3 L 1-4.8 Lymphocytes # (Manual) November 01, 2014 7:34am 0.5 T/MM3 L 1-4.8 Lymphocytes % (Manual) November 01, 2014 7:34am 6.0 % L 23-45 Lymphocytes (%) (Auto) October 31, 2014 1:56pm 7.4 % L 23-45 Magnesium Level November 01, 2014 7:34am 2.1 MG/DL N 1.6-2.3 Mean Corpuscular Hemoglobin November 01, 2014 7:34am 32.1 UUG N 26-34 Mean Corpuscular Hemoglobin Concent November 01, 2014 7:34am 34.0 GM/DL N 31-37 Mean Corpuscular Volume November 01, 2014 7:34am 94.6 UM3 N 80-100 Mean Platelet Volume November 01, 2014 7:34am 9.3 UM3 L 9.4-12.4 Metamyelocytes # December 28, 2013 9:39am 0.2 T/MM3 - Metamyelocytes % December 28, 2013 9:39am 2.0 % H 0-0 Monocytes # (Auto) October 31, 2014 1:56pm 0.8 T/MM3 N 0-0.8 Monocytes # (Manual) November 01, 2014 7:34am 0.5 T/MM3 N 0-0.8 Monocytes % (Manual) November 01, 2014 7:34am 6.0 % N 0-9.0 Monocytes (%) (Auto) October 31, 2014 1:56pm 8.4 % N 0-9.0 Myelocytes # December 28, 2013 9:39am 0.1 T/MM3 - Myelocytes % December 28, 2013 9:39am 1.0 % H 0-0 VP-Whd-J-Type Natriuretic Peptide April 10, 2014 12:08am 48 PG/ML N 0- 175 Rule in cut points: <50 years old=450; 50-75 years old=900; >75 years old=1800; When utilizing ProBNP rule-in cut points, adjustment for impaired renal function is typically not required. Neutrophils # (Auto) October 31, 2014 1:56pm 8.3 T/MM3 H 1.8-7.7 Neutrophils # (Manual) November 01, 2014 7:34am 7.4 T/MM3 N 1.8-7.7 Neutrophils % (Manual) November 01, 2014 7:34am 83.0 % H 33-66 Neutrophils (%) (Auto) October 31, 2014 1:56pm 83.4 % H 33-66 Platelet Count November 01, 2014 7:34am 217 T/MM3 N 130-400 Potassium Level November 01, 2014 7:34am 4.1 MEQ/L N 3.6-5 Prothromb Time International Ratio April 10, 2014 12:08am 1.42 H 0.81- 1.09 THERAPUTIC RANGE=2.00-3.00 FOR ANTI-THROMBOSIS THERAPUTIC RANGE=2.50- 3.50 FOR IMPLANTED VALVE RDW Standard Deviation November 01, 2014 7:34am 43.9 FL N 36.9-50.2 Red Blood Count November 01, 2014 7:34am 4.48 M/MM3 L 4.50-5.90 Sodium Level November 01, 2014 7:34am 142 MEQ/L N 134-144 Total Bilirubin November 01, 2014 7:34am 0.50 MG/DL N 0.20-1.30 Total Protein November 01, 2014 7:34am 6.5 G/DL N 6.3-8.2 Triglycerides Level April 06, 2013 5:30pm 62 MG/DL N 40-160 Troponin I April 10, 2014 11:45am 0.087 ng/ml N 0-0.12 Turbidity November 01, 2014 7:34am < 20 0-20 Uric Acid November 01, 2014 7:34am 3.5 MG/DL N 3.5-8.5 Urinalysis Comment October 31, 2014 2:20pm Microscopic not ind. - Has specimen been collected/obtained? Y Urine Bacteria February 27, 2014 3:45pm None seen - Has specimen been collected/obtained? Y Urine Bilirubin October 31, 2014 2:20pm Negative - Has specimen been collected/obtained? Y Urine Blood October 31, 2014 2:20pm Negative - Has specimen been collected/obtained? Y Urine Collection Type October 31, 2014 2:20pm Has specimen been collected /obtained? Y - Urine Color October 31, 2014 2:20pm Yellow - Has specimen been collected/obtained? Y Urine Glucose (UA) October 31, 2014 2:20pm Negative - Has specimen been collected/obtained? Y Urine Ketones October 31, 2014 2:20pm Negative - Has specimen been collected/obtained? Y Urine Leukocyte Esterase October 31, 2014 2:20pm Negative - Has specimen been collected/obtained? Y Urine Nitrite October 31, 2014 2:20pm Negative - Has specimen been collected/obtained? Y Urine Protein October 31, 2014 2:20pm Negative - Has specimen been collected/obtained? Y Urine RBC February 27, 2014 3:45pm None seen /HPF - Has specimen been collected/obtained? Y Urine Specific [place] October 31, 2014 2:20pm 1.025 - Has specimen been collected/obtained? Y Urine Turbidity October 31, 2014 2:20pm Clear - Has specimen been collected/obtained? Y Urine Urobilinogen October 31, 2014 2:20pm 0.2 EU/DL - Has specimen been collected/obtained? Y Urine WBC February 27, 2014 3:45pm None seen /HPF - Has specimen been collected/obtained? Y Urine pH October 31, 2014 2:20pm 5.5 - Has specimen been collected/ obtained? Y VLDL Cholesterol April 06, 2013 5:30pm 12.4 MG/DL N 0-28 Venous Blood Lactate January 19, 2014 1:45am 0.8 MMOL/L N 0.6-2.2 White Blood Count November 01, 2014 7:34am 8.9 T/MM3 N 4.5-11.0 Blood Culture Blood January 19, 2014 1:45am NO GROWTH AFTER 5 DAYS Name: PATO CANDELARIA Unit #: [id number] : 1985 Sex: M Loc / [facility]: [facility] DOS: 10/28/14 Signed Report #: [id number] DIAGNOSTIC IMAGING REPORT TYPE OF EXAM: CTA [...] masses. . Procedures Procedure Status Date Provider(s) COMPREHEN METABOLIC PANEL completed 08/09/14 LACTATE (LD) (LDH) ENZYME completed 08/09/14 COMPLETE CBC W/AUTO DIFF WBC completed 08/09/14 CT SOFT TISSUE NECK W/DYE completed 09/04/14 CT THORAX W/DYE completed 09/04/14 CT ABD & PELV W/CONTRAST completed 09/04/14 [id number]"INJECTION, HEPARIN SODIUM, (HEPARIN LOCK FLUSH), PER completed [id number]"INFUSION, NORMAL SALINE SOLUTION , 250 CC" completed 09/04/14 [id number]"LOW OSMOLAR CONTRAST MATERIAL, 200-299 MG/ML IODINE C completed [id number]"LOW OSMOLAR CONTRAST MATERIAL, 300-399 MG/ML IODINE C completed COMPREHEN METABOLIC PANEL completed 09/06/14 LACTATE (LD) (LDH) ENZYME completed 09/06/14 ASSAY OF MAGNESIUM completed 09/06/14 COMPLETE CBC W/AUTO DIFF WBC completed 09/06/14 PET IMAGE W/CT SKULL-THIGH completed 09/11/14 [id number]"FLUORODEOXYGLUCOSE F-18 FDG, DIAGNOSTIC, PER STUDY DO completed COMPREHEN METABOLIC PANEL completed 10/18/14 LACTATE (LD) (LDH) ENZYME completed 10/18/14 COMPLETE CBC W/AUTO DIFF WBC completed 10/18/14 CT THORAX W/DYE completed 10/18/14 CT ABD & PELV W/CONTRAST completed 10/18/14"INJECTION, HEPARIN SODIUM, (HEPARIN LOCK FLUSH), PER completed [id number]"INFUSION, NORMAL SALINE SOLUTION , 250 CC" completed 10/18/14 [id number]"LOW OSMOLAR CONTRAST MATERIAL, 300-399 MG/ML IODINE C completed Encounters Encounter Location Date/Time Discharged [facility] 10/29/14 11:00am Registered [facility] 10/28/14 10:38am Registered [facility] 10/28/14 8:41am Registered [facility] 10/18/14 11:53am Registered [facility] 10/18/14 10:26am Registered [facility] 10/07/14 6:54am Registered [facility] 09/11/14 7:06am Registered [facility] 09/06/14 11:04am Registered [facility] 09/04/14 10:13am Registered [facility] 08/09/14 9:27am Recent Diagnosis Superior vena cava syndrome Atrial fibrillation, new onset Tobacco abuse
--- OUTSIDE RECORDS SUMMARY | 2016-12-20 12:44 | XMS REPORT | Continuity of Care Document ---
Author Author [facility] Organization [facility] Address Unknown Phone Unavailable Support Name Relationship Address Phone SAFIA ESPINO MD Caregiver [address] [place] [address] [place] [address] AMY JOHNSON MD Caregiver [address] [place] [address] [place] [phone] JAVID ARROYO Next Of Kin [address] [place] [address] NOK* Insurance Providers Payer Name Policy Number Subscriber Name [facility] [id number] Pato Candelaria 20 Self Advance Directives Directive [...] discharge plan Patient Instructions: see patient instructions Patient Instructions: see patient instructions see patient instructions Discharge Patient: Goal: Other Understand discharge plan Patient Instructions: see patient instructions Call your Surgeon if you have: 1.Chest pain, difficulty breathing, fever>100.5 degrees, chills, heart rate >100, confusion, or persistent nausea/vomitting. 2.Severe pain, swelling, redness, or warmth in either of your legs. 3.During office hours, call [phone] 4. After hours, please call [facility] at [phone], and have the making machine operator page your Surgeon IN THE EVENT OF AN EMERGENCY, seek medical care at the nearest Emergency Room Condition at time of discharge: Good Care Plan Discharge Patient: Goal: Maximum functional status Patient Instructions: see patient instructions see patient instructions Plan of Care Discharge [...] 10, 2014 12:08am 28 MEQ/L N 22-30 Chemistry Specimen Hemolysis April 10, 2014 11:45am [...] Phenytoin. Recommend specimen recollection. Chloride Level April 10, 2014 12:08am 103 [...] 10, 2014 12:08am 2.4 G/DL N 2.4-3.6 Glomerular Filtration Rate Calc April 10, 2014 12:08am 117 - Glucose Level April 10, 2014 12:08am 115 MG/DL H 75-110 HDL Cholesterol Direct April 06, 2013 5:30pm 50 MG/DL N 40-60 Hematocrit April 10, 2014 12:08am 41.2 % N 41-53 Hemoglobin April 10, 2014 12:08am 14.3 GM/DL N 13.5-17.5 Icterus Index April 10, 2014 12:08am < 2 0-7 Immature Granulocyte # (Auto) April 10, 2014 12:08am 0.01 T/MM3 N 0.00- 0.03 Immature Granulocyte % (Auto) April 10, 2014 12:08am 0.2 % N 0.0-0.5 LDL Cholesterol, Calculated April 06, 2013 5:30pm 112.6 N 66-159 Lab Scanned Report March 20, 2014 9:16pm LAB TEST FORM REQUEST [id number] - Lactate Dehydrogenase March 20, 2014 2:45pm [...] 28, 2013 9:39am 1.0 % H 0-0 EJ-Qxg-E-Type Natriuretic Peptide April 10, 2014 12:08am 48 PG/ML N 0- 175 Rule in cut points: <50 years old=450; 50-75 years old=900; >75 years old=1800; When utilizing ProBNP rule-in cut points, adjustment for impaired renal function is typically not required. Neutrophils # (Auto) April 10, 2014 12:08am [...] 2014 11:45am 0.087 ng/ml N 0-0.12 Turbidity April 10, 2014 12:08am < 20 0-20 Uric Acid March 20, [...] Has specimen been collected/obtained? Y Urine Specific [facility] February 27, 2014 3:45pm >=1.030 H - [...] MMOL/L N 0.6-2.2 White Blood Count April 10, 2014 12:08am 4.6 T/MM3 N 4.5-11.0 Blood Culture Blood January [...] Emergency Room [facility] 04/09/14 5:30pm Registered [facility] 04/08/14 7:59am Registered [facility] 03/20/14 2:10pm Registered Clinic [facility] 03/18/14 12:52pm Departed Clinic [facility] 02/27/14 2:40pm Registered [facility] 02/27/14 12:39pm Registered Clinic [facility] 02/21/14 2:14pm Registered [facility] 02/14/14 1:32pm Departed Emergency Room [facility] 02/13/14 10:07pm Registered [facility] 02/10/14 9:24pm Registered Clinic [facility] 02/06/14 4:51pm Registered Clinic [facility] 02/05/14 8:19am Registered Clinic [facility] 01/21/14 10:40am Departed Emergency Room [facility] 01/19/14 12:47am Departed Clinic [facility] 01/16/14 11:12am Discharged [facility] 12/14/13 9:29am Recent Diagnosis Chest pain Chest pain Chest pain Non-Hodgkin lymphoma Deep vein thrombosis (DVT) Superior vena cava syndrome Methamphetamine abuse Inadequate anticoagulation
--- OUTSIDE RECORDS SUMMARY | 2016-12-20 12:45 | XMS REPORT | Continuity of Care Document ---
Author Author [facility] Organization [facility] Address Unknown Phone Unavailable Support Name Relationship Address Phone PAULO DINH Caregiver [address] [phone] BLAYNE CANDELARIA Next Of Kin Unknown [phone] Insurance Providers Payer Name Policy Number Subscriber Name Relationship [employer] [id number] Pato Candelaria 20 Self Advance Directives Directive [...] Instructions Instructions: Care Instructions: Reason for Hospitalization: pneumonia, cellulitis, elevated LFT's I was in the hospital because (patient own words): "Pneumonia" Discharge Diet: regular Discharge Activity: as tolerated Follow Up Appointments: [address] Kwong Patient Instructions: Apply DAGMAR hose every a.m. Condition at time of discharge: Good see instructions Condition at time of discharge: Good Congenital Heart Disease Screening Result: Pass Bilirubin Level: 6.0 Congenital Heart Disease Screening Result: Pass Good Plan of Care Discharge Date 11/01/14 [...] Vital Signs Vital Response Date/Time Temperature (Fahrenheit) 97.3 deg F (96.8 - 99.1) Temperature (Calculated Celsius) 36.54007 degrees C (36.0 - 37.3) Pulse Rate (adult) 78 bpm (60 - 100) Respiratory Rate 16 breaths/min (10 - 20) O2 Sat by Pulse Oximetry 93 % (90 - 100) Oxygen Delivery Method Room Air Blood Pressure 122/74 mm Hg Blood Pressure Source Automatic Cuff [...] at [facility] Reference [facility], [address] [place] [address] Production Corrugator Aster Marvin DO Hepatitis B Surface Ab [...] at [facility] Reference Lab, [address] [place] [address] Production Corrugator Aster Marvin DO Hepatitis C Viral RNA [...] 28, 2013 9:39am 1.0 % H 0-0 [id number]-Xaj-[id number]-Type Natriuretic Peptide April 10, 2014 12:08am 48 [...] 2014 12:00am 0-1 /HPF - Urine Specific [place] December 19, 2014 12:00am >=1.030 H - [...] 2014 10:20am Name: PATO CANDELARIA Unit #: [id number] : 1985 Sex: M Loc / Svc: MED DOS: 10/29/14 Signed Report #: [id number] DIAGNOSTIC IMAGING REPORT TYPE OF EXAM: CHEST, [...] completed 10/07/14 TTE W/DOPPLER COMPLETE completed 10/07/14 [id number] completed 10/07/14 COMPREHEN METABOLIC PANEL completed 10/18/14 LACTATE (LD) (LDH) ENZYME completed 10/18/14 COMPLETE CBC W/AUTO DIFF WBC completed 10/18/14 CT THORAX W/DYE completed 10/18/14 CT ABD & PELV W/CONTRAST completed 10/18/14 [id number]"INJECTION, HEPARIN SODIUM, (HEPARIN LOCK FLUSH), PER completed [id number]"INFUSION, NORMAL SALINE SOLUTION , 250 CC" completed 10/18/14 [id number]"LOW OSMOLAR CONTRAST MATERIAL, 300-399 MG/ML IODINE C completed ROUTINE VENIPUNCTURE completed 10/28/14 CT ANGIOGRAPHY CHEST completed 10/28/14 FIBRIN DEGRADATION QUANT completed 10/28/14 FIBRINOGEN ACTIVITY completed 10/28/14 THROMBOPLASTIN TIME PARTIAL completed 10/28/14 [id number]"INJECTION, HEPARIN SODIUM, (HEPARIN LOCK FLUSH), PER completed 477395"INFUSION, NORMAL SALINE SOLUTION , 250 CC" completed 10/28/14 100049"LOW OSMOLAR CONTRAST MATERIAL, 300-399 MG/ML IODINE C [...] completed 11/13/14 Encounters Encounter Location Date/Time Registered [facility] 12/19/14 11:07am Registered [facility] 12/12/14 10:29am Registered Clinic [facility] 12/05/14 8:59am Registered [facility] 12/02/14 12:58pm Registered [facility] 11/28/14 3:17pm Registered [facility] 11/26/14 1:26pm Registered Clinic [facility] 11/13/14 3:59pm Discharged Recurring [facility] 11/03/14 8:09pm Discharged Inpatient [facility] 10/31/14 6:21pm Discharged Recurring [facility] 10/29/14 11:00am Registered [facility] 10/28/14 10:38am Registered Clinic [facility] 10/18/14 11:53am Registered [facility] 10/18/14 10:26am Registered [facility] 10/07/14 6:54am
--- OUTSIDE RECORDS SUMMARY | 2016-12-20 12:45 | XMS REPORT | Continuity of Care Document ---
Author Author [facility] Organization [facility] Address Unknown Phone Unavailable Support Name Relationship Address Phone PAULO DINH Tressa Caregiver [address] [place] [phone] Insurance Providers Payer Name Policy Number Subscriber Name Relationship Jayashree [id number] Pato Candelaria 20 Self Advance Directives Directive Response Recorded Date/Time Advanced Directives Type None 02/27/14 4:45pm Resuscitation Documents on File No 11/03/14 8:31pm Problems Medical Problems Problem Onset Date Status [...] Instructions Instructions: Care Instructions: Reason for Hospitalization: I was in the hospital because (patient own words): water broke Discharge Diet: regular Condition at time of discharge: Good -See Dr Seay in 2 weeks--please have patient make appointment. -Follow up with Dr Iqbal on 11/07/14 at 10:00AM. . Patient Instructions: Take your medication as rx'd. Should your symptoms return you could contact either Dr Seay or Dr Iqbal through the office or return to the ED for emergent evaluation Condition at time of discharge: Good Pass Pass Plan of Care Discharge Date 11/01/14 [...] Vital Signs Vital Response Date/Time Temperature (Fahrenheit) 97.4 deg F (96.8 - 99.1) Temperature (Calculated Celsius) 36.76928 degrees C (36.0 - 37.3) Pulse Rate (adult) 93 bpm (60 - 100) Respiratory Rate 16 breaths/min (10 - 20) O2 Sat by Pulse Oximetry 96 % (90 - 100) Oxygen Delivery Method Room Air Blood Pressure 123/67 mm Hg Blood Pressure Source Automatic Cuff Height (Feet) 5 feet Height (Inches) 7.00 inches Weight (Kilograms) 73.300 kg Body Mass Index (BMI) 25.3 Results Test Source Date Result Interp. Ref. [...] Hepatitis B Core Ab Total performed at [facility] Reference Lab, [address] [place] [address] Aprn Aster Marvin DO Hepatitis B Surface Ab [...] HCV infection. Hepatitis C RNA performed at [facility] Reference Lab, [address] [place] [address] Aprn Aster Marvin DO Hepatitis C Viral RNA [...] 28, 2013 9:39am 1.0 % H 0-0 KW-Kzs-E-Type Natriuretic Peptide April 10, 2014 12:08am 48 [...] Has specimen been collected/obtained? Y Urine Specific [place] October 31, 2014 2:20pm 1.025 - Has [...] 5 DAYS Name: PATO CANDELARIA Unit #: [id number] : 1985 Sex: M Loc / Svc: KRYSTYNA DOS: 10/28/14 Signed Report #: [id number] DIAGNOSTIC IMAGING REPORT TYPE OF EXAM: CTA [...] 09/04/14 CT ABD & PELV W/CONTRAST completed 09/04/14"INJECTION, HEPARIN SODIUM, (HEPARIN LOCK FLUSH), PER completed "INFUSION, NORMAL SALINE SOLUTION , 250 CC" completed 09/04/14"LOW OSMOLAR CONTRAST MATERIAL, 200-299 MG/ML IODINE C completed [id number]"LOW OSMOLAR CONTRAST MATERIAL, 300-399 MG/ML IODINE C completed COMPREHEN METABOLIC PANEL completed 09/06/14 LACTATE (LD) (LDH) ENZYME completed 09/06/14 ASSAY OF MAGNESIUM completed 09/06/14 COMPLETE CBC W/AUTO DIFF WBC completed 09/06/14 PET IMAGE W/CT SKULL-THIGH completed 09/11/14 [id number]"FLUORODEOXYGLUCOSE F-18 FDG, DIAGNOSTIC, PER STUDY DO completed COMPREHEN METABOLIC PANEL completed 10/18/14 LACTATE (LD) (LDH) ENZYME completed 10/18/14 COMPLETE CBC W/AUTO DIFF WBC completed 10/18/14 CT THORAX W/DYE completed 10/18/14 CT ABD & PELV W/CONTRAST completed 10/18/14 [id number]"INJECTION, HEPARIN SODIUM, (HEPARIN LOCK FLUSH), PER completed [id number]"INFUSION, NORMAL SALINE SOLUTION , 250 CC" completed 10/18/14 [id number]"LOW OSMOLAR CONTRAST MATERIAL, 300-399 MG/ML IODINE C completed Encounters Encounter Location Date/Time Registered [facility] 11/03/14 8:09pm Discharged Inpatient 10/31/14 6:21pm Discharged [facility] 10/29/14 11:00am Registered [facility] 10/28/14 10:38am Registered [facility] 10/28/14 8:41am Registered [facility] 10/18/14 11:53am Registered [facility] 10/18/14 10:26am Registered [facility] 10/07/14 6:54am Registered Clinic 09/11/14 7:06am Registered [facility] 09/06/14 11:04am Registered [facility] 09/04/14 10:13am Registered [facility] 08/09/14 9:27am
--- OUTSIDE RECORDS SUMMARY | 2016-12-20 12:56 | XMS REPORT | Continuity of Care Document ---
Author Author Vilma Mary Vilma Address Unknown Phone Unavailable Care Team Providers Care Natural Gas Plant Technician Name Role Phone [employer] Unavailable Unavailable Problems Problem Status Onset Date Classification Date Reported Comments Source Bradycardia (disorder) Active 11/05/2013 Problem 2013 [facility]. Deep venous thrombosis (disorder) Active Problem 2013 [facility]. 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 Polysubstance abuse (disorder) Active Problem 11/09/2013 [facility]. 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 Medications Allergies, Adverse Reactions, Alerts Substance Category Reaction Severity Reaction type Status Date Reported Comments Source NKA drug allergy Allergy Active [facility]. Immunizations Results Vital Signs Encounters Location Location Details Encounter Type Encounter Number Reason For Visit Attending Provider ADM Date DC Date Status Source [facility] [id number] Inpatient [id number] Jayce Krishnamurthyid 10/26/2013 11/16/2013 Active [facility]. [facility] [id number] Clinic ( Outpatient) [id number] . [facility] Procedures Plan of Care Social History Assessment and Plan Family History Value Date Source Advance Directives Order Name Results Value Date Source
--- OUTSIDE RECORDS SUMMARY | 2016-12-20 12:57 | XMS REPORT | Continuity of Care Document ---
Author Author [facility] Organization [facility] Address Unknown Phone Unavailable Support Name Relationship Address Phone ALLEGRA PAULO Tressa Caregiver [address] [place] [phone] Insurance Providers Payer Name Policy Number Subscriber Name Relationship Devan Taylor Correct Care [id number] Pato Candelaria 20 Self Medikan [id number] Pato Candelaria 20 Self Advance Directives Directive [...] F (96.8 - 99.1) Temperature (Calculated Celsius) 36.39454 degrees C (36.0 - 37.3) Pulse Rate [...] Hepatitis B Core Ab Total performed at [facility] Reference Lab, [address] [place] [address] Professional Bondsman Aster Marvin DO Hepatitis B Surface Ab [...] HCV infection. Hepatitis C RNA performed at [facility] Reference Lab, [address] [place] [address] Professional Bondsman Aster Marvin DO Hepatitis C Viral RNA [...] 28, 2013 9:39am 1.0 % H 0-0 KV-Mli-I-Type Natriuretic Peptide April 10, 2014 12:08am 48 [...] Has specimen been collected/obtained? Y Urine Specific [place] November 19, 2014 1:50pm 1.010 L - [...] 5 DAYS Name: PATO CANDELARIA Unit #: [id number] : 1985 Sex: M Loc / Svc: KRYSTYNA DOS: 10/28/14 Signed Report #: [id number] DIAGNOSTIC IMAGING REPORT TYPE OF EXAM: CTA [...] 09/04/14 CT ABD & PELV W/CONTRAST completed 09/04/14910425"INJECTION, HEPARIN SODIUM, (HEPARIN LOCK FLUSH), PER completed 003"INFUSION, NORMAL SALINE SOLUTION , 250 CC" completed 09/04/14082577"LOW OSMOLAR CONTRAST MATERIAL, 200-299 MG/ML IODINE C completed 003"LOW OSMOLAR CONTRAST MATERIAL, 300-399 MG/ML IODINE C completed COMPREHEN METABOLIC PANEL completed 09/06/14 LACTATE (LD) (LDH) ENZYME completed 09/06/14 ASSAY OF MAGNESIUM completed 09/06/14 COMPLETE CBC W/AUTO DIFF WBC completed 09/06/14 PET IMAGE W/CT SKULL-THIGH completed 09/11/14 [id number]"FLUORODEOXYGLUCOSE F-18 FDG, DIAGNOSTIC, PER STUDY DO completed GATED HEART PLANAR SINGLE completed 10/07/14 TTE W/DOPPLER COMPLETE completed 10/07/14 [id number] completed 10/07/14 COMPREHEN METABOLIC PANEL completed 10/18/14 LACTATE (LD) (LDH) ENZYME completed 10/18/14 COMPLETE CBC W/AUTO DIFF WBC completed 10/18/14 CT THORAX W/DYE completed 10/18/14 CT ABD & PELV W/CONTRAST completed 10/18/14 [id number]"INJECTION, HEPARIN SODIUM, (HEPARIN LOCK FLUSH), PER completed 527577"INFUSION, NORMAL SALINE SOLUTION , 250 CC" completed 10/18/14 [id number]"LOW OSMOLAR CONTRAST MATERIAL, 300-399 MG/ML IODINE C completed ROUTINE VENIPUNCTURE completed 10/28/14 CT ANGIOGRAPHY CHEST completed 10/28/14 FIBRIN DEGRADATION QUANT completed 10/28/14 FIBRINOGEN ACTIVITY completed 10/28/14 THROMBOPLASTIN TIME PARTIAL completed 10/28/14 [id number]"INJECTION, HEPARIN SODIUM, (HEPARIN LOCK FLUSH), PER completed 531071"INFUSION, NORMAL SALINE SOLUTION , 250 CC" completed 10/28/14 [id number]"LOW OSMOLAR CONTRAST MATERIAL, 300-399 MG/ML IODINE C [...] completed 11/13/14 Encounters Encounter Location Date/Time Registered [facility] 11/21/14 9:59am Discharged [facility] 11/14/14 11:45am Registered [facility] 11/13/14 3:59pm Discharged Inpatient [facility] 10/31/14 6:21pm Registered [facility] 10/29/14 11:00am Registered [facility] 10/28/14 10:38am Registered Clinic [facility] 10/18/14 11:53am Registered Clinic [facility] 10/18/14 10:26am Registered Clinic [facility] 10/07/14 6:54am Registered Clinic [facility] 09/11/14 7:06am Registered Clinic [facility] 09/06/14 11:04am Registered Clinic [facility] 09/04/14 10:13am
--- OUTSIDE RECORDS SUMMARY | 2016-12-20 12:57 | XMS REPORT | Continuity of Care Document ---
Author Author [facility] Organization [facility] Address Unknown Phone Unavailable Support Name Relationship Address Phone SHABANA PEREA MD Caregiver [address] [place] [address] [place] [address] AMY JOHNSON MD Caregiver [address] [place] [address] [place] [phone] JAVID ARROYO Next Of Kin [address] [place] [address] NOK* Insurance Providers Payer Name Policy Number Subscriber Name Relationship [id number] Pato Candelaria 20 Self Advance Directives Directive [...] F (96.8 - 99.1) Temperature (Calculated Celsius) 35.57408 degrees C (36.0 - 37.3) Pulse Rate [...] 20, 2014 9:16pm LAB TEST FORM REQUEST [id number] - Lactate Dehydrogenase March 20, 2014 2:45pm [...] Has specimen been collected/obtained? Y Urine Specific [place] February 27, 2014 3:45pm >=1.030 H - [...] Encounters Encounter Location Date/Time Departed Emergency Room [facility] 04/09/14 5:30pm Registered [facility] 04/08/14 7:59am Registered [facility] 03/20/14 2:10pm Registered [facility] 03/18/14 12:52pm Departed [facility] 02/27/14 2:40pm Registered [facility] 02/27/14 12:39pm Registered [facility] 02/21/14 2:14pm Registered [facility] 02/14/14 1:32pm Departed Emergency Room [facility] 02/13/14 10:07pm Registered [facility] 02/10/14 9:24pm Registered Clinic [facility] 02/06/14 4:51pm Registered Clinic [facility] 02/05/14 8:19am Registered [facility] 01/21/14 10:40am Departed Emergency Room [facility] 01/19/14 12:47am Departed Clinic [facility] 01/16/14 11:12am Discharged Recurring [facility] 12/14/13 9:29am Recent Diagnosis
--- OUTSIDE RECORDS SUMMARY | 2016-12-20 12:57 | XMS REPORT | Continuity of Care Document ---
Author Author [facility] Organization [facility] Address Unknown Phone Unavailable Allergies Medications Problems [...] Status Pt. Type Provider Facility Loc./Unit Complaint [id number] 05/30/2015 07:27:00 2014 23:59:00 DIS Outpatient Amol Reese MD, I [facility] Diag Rad Non Hodgkins Lymphoma 202.80
--- OUTSIDE RECORDS SUMMARY | 2016-12-20 12:57 | XMS REPORT | Continuity of Care Document ---
Author Author [facility] Organization [facility] Address Unknown Phone Unavailable Support Name Relationship Address Phone SAFIA ESPINO MD Caregiver [address] [place] [address] [place] [address] AMY JOHNSON MD Caregiver [address] [place] [address] [place] [phone] JAVID ARROYO Next Of Kin [address] [place] [address] NOK* Insurance Providers Payer Name Policy Number Subscriber Name Relationship [facility] [id number] Pato Candelaria 20 Self Advance Directives Directive [...] of your legs. 3.During office hours, call [phone] 4. After hours, please call [facility] at [phone], and have the shingle shearing machine operator page your Surgeon IN THE [...] Has specimen been collected/obtained? Y Urine Specific [place] February 27, 2014 3:45pm >=1.030 H - [...] 20, 2014 9:16pm LAB TEST FORM REQUEST [id number] - HDL Cholesterol Direct April 06, 2013 [...] April 10, 2014 12:08am < 2 0-7 BE-Fhd-G-Type Natriuretic Peptide April 10, 2014 12:08am 48 PG/ML N 0- 175 Rule in cut points: <50 years old=450; 50-75 years old=900; >75 years old=1800; When utilizing ProBNP rule-in cut points, adjustment for impaired renal function is typically not required. Blood Culture Blood January 19, 2014 1:45am NO GROWTH AFTER 5 DAYS Name: PATO CANDELARIA Unit #: [id number] : 1985 Sex: M Loc / Svc: SRG DOS: 04/09/14 Signed Report #: [id number] DIAGNOSTIC IMAGING REPORT TYPE OF EXAM: CHEST [...] MD Encounters Encounter Location Date/Time Discharged Inpatient [facility] 04/10/14 12:20am Departed Emergency Room [facility] 04/09/14 5:30pm Registered Clinic [facility] 04/08/14 7:59am Discharged Recurring [facility] 03/20/14 2:10pm Registered Clinic [facility] 03/18/14 12:52pm Departed Clinic [facility] 02/27/14 2:40pm Registered Clinic [facility] 02/21/14 2:14pm Registered Clinic [facility] 02/14/14 1:32pm Departed Emergency Room [facility] 02/13/14 10:07pm Registered Clinic [facility] 02/10/14 9:24pm Registered Clinic [facility] 02/06/14 4:51pm Registered Clinic [facility] 02/05/14 8:19am Discharged Recurring [facility] 01/16/14 9:36am Discharged Recurring [facility] 12/14/13 9:29am Recent Diagnosis Chest pain Chest pain Chest pain Non-Hodgkin lymphoma Deep vein thrombosis (DVT) Superior vena cava syndrome Methamphetamine abuse Inadequate anticoagulation
--- OUTSIDE RECORDS SUMMARY | 2016-12-20 12:57 | XMS REPORT | Continuity of Care Document ---
Author Author [facility] Organization [facility] Address Unknown Phone Unavailable Care Team Providers Care Net Developer Name Role Phone Unknown, Unknown Primary Care Physician Unavailable Source Comments Some departments are not documenting in the electronic medical record. If you do not see the information that you expected, contact Release of Information in the Health Information Management department at [phone] for further assistance in locating additional records.[facility] Active Allergies and Adverse Reactions Allergen Noted [...]
--- OUTSIDE RECORDS SUMMARY | 2016-12-20 12:58 | XMS REPORT | Continuity of Care Document ---
Author Author [facility] Organization [facility] Address Unknown Phone Unavailable Support Name Relationship Address Phone PAULO DINH Caregiver [address] [place] [phone] BLAYNE CANDELARIA Next Of Kin Unknown [phone] Insurance Providers Payer Name Policy Number Subscriber Name Relationship Medim[employer] [id number] Pato Candelaria 20 Self Advance Directives Directive [...] check CXR, BMP, CBC at that time [phone] DECEMBER 23 AT 11:30 Durable Medical Equipment: [...] F (96.8 - 99.1) Temperature (Calculated Celsius) 36.20170 degrees C (36.0 - 37.3) Pulse Rate [...] Hepatitis B Core Ab Total performed at [facility] Reference Lab, [address] [place] [address] Scientific Specialist Aster Marvin DO Hepatitis B Surface Ab [...] HCV infection. Hepatitis C RNA performed at [facility] Reference Lab, [address] [place] [address] Scientific Specialist Aster Marvin DO Hepatitis C Viral RNA [...] 28, 2013 9:39am 1.0 % H 0-0 JS-Flm-W-Type Natriuretic Peptide April 10, 2014 12:08am 48 [...] Has specimen been collected/obtained? Y Urine Specific [place] December 02, 2014 9:45am 1.015 - Urine [...] 2014 10:20am Name: PATO CANDELARIA Unit #: [id number] : 1985 Sex: M Loc / Svc: KRYSTYNA DOS: 12/12/14 Signed Report #: [id number] DIAGNOSTIC IMAGING REPORT TYPE OF EXAM: CHEST, [...] completed 10/07/14 TTE W/DOPPLER COMPLETE completed 10/07/14 [id number] completed 10/07/14 COMPREHEN METABOLIC PANEL completed 10/18/14 LACTATE (LD) (LDH) ENZYME completed 10/18/14 COMPLETE CBC W/AUTO DIFF WBC completed 10/18/14 CT THORAX W/DYE completed 10/18/14 CT ABD & PELV W/CONTRAST completed 10/18/14 [id number]"INJECTION, HEPARIN SODIUM, (HEPARIN LOCK FLUSH), PER completed 155978"INFUSION, NORMAL SALINE SOLUTION , 250 CC" completed 10/18/14 614517"LOW OSMOLAR CONTRAST MATERIAL, 300-399 MG/ML IODINE C completed ROUTINE VENIPUNCTURE completed 10/28/14 CT ANGIOGRAPHY CHEST completed 10/28/14 FIBRIN DEGRADATION QUANT completed 10/28/14 FIBRINOGEN ACTIVITY completed 10/28/14 THROMBOPLASTIN TIME PARTIAL completed 10/28/14 539155"INJECTION, HEPARIN SODIUM, (HEPARIN LOCK FLUSH), PER completed 852268"INFUSION, NORMAL SALINE SOLUTION , 250 CC" completed 10/28/14 718629"LOW OSMOLAR CONTRAST MATERIAL, 300-399 MG/ML IODINE C [...] completed 11/13/14 Encounters Encounter Location Date/Time Registered [facility] 12/16/14 1:56pm Registered Clinic [facility] 12/12/14 10:29am Registered Clinic [facility] 12/05/14 8:59am Discharged Recurring [facility] 12/02/14 12:58pm Registered Clinic [facility] 11/28/14 3:17pm Registered Clinic [facility] 11/26/14 1:26pm Discharged Recurring [facility] 11/14/14 11:45am Registered Clinic [facility] 11/13/14 3:59pm Discharged Inpatient [facility] 10/31/14 6:21pm Discharged Recurring [facility] 10/29/14 11:00am Registered Clinic [facility] 10/28/14 10:38am Registered Clinic [facility] 10/18/14 11:53am Registered [facility] 10/18/14 10:26am Registered [facility] 10/07/14 6:54am
--- OUTSIDE RECORDS SUMMARY | 2016-12-20 12:58 | XMS REPORT | Continuity of Care Document ---
Author Author [facility] Organization [facility] Address Unknown Phone Unavailable Support Name Relationship Address Phone PAULO DINH Caregiver [address] [place] [phone] BLAYNE CANDELARIA Next Of Kin Unknown [phone] Insurance Providers Payer Name Policy Number Subscriber Name Relationship Mediminoon [id number] Pato Candelaria 20 Self Advance Directives Directive [...] Appointments: FOLLOW UP WITH DR. GUZMAN AT [facility] 12/25/14 AT 10:15AM. YOU CAN DO LABWORK AT [facility] THE DAY OF YOUR APPOINTMENT. FOLLOW UP WITH KENYA COLLINS, SHOAIB 01/17/15 10:30AM Patient Instructions: RETURN TO CARE IMMEDIATLELY IF CELLULITIS WORSENS AGAIN AND/OR IF FEVERS, CHILLS, LEG PAINS OCCUR Condition at time of discharge: Good Notify Physician If: worsening chest pain, fever > 101, altered mental status General Information: n/a Condition at time of discharge: Good the insulation board calender operator page Dr. Brennan or the covering [...] F (96.8 - 99.1) Temperature (Calculated Celsius) 36.18852 degrees C (36.0 - 37.3) Pulse Rate [...] Hepatitis B Core Ab Total performed at [facility] Reference Lab, [address] [place] [address] Human Geography Faculty Member Aster Marvin DO Hepatitis B Surface Ab [...] HCV infection. Hepatitis C RNA performed at [facility] Reference [facility], [address], [place] [address] Human Geography Faculty Member Aster Marvin DO Hepatitis C Viral RNA [...] 28, 2013 9:39am 1.0 % H 0-0 AS-Mqc-B-Type Natriuretic Peptide April 10, 2014 12:08am 48 [...] Has specimen been collected/obtained? Y Urine Specific [place] December 02, 2014 9:45am 1.015 - Urine [...] 2014 10:20am Name: PATO CANDELARIA Unit #: [id number] : 1985 Sex: M Loc / Svc: KRYSTYNA DOS: 12/12/14 Signed Report #: [id number] DIAGNOSTIC IMAGING REPORT TYPE OF EXAM: CHEST, [...] completed 10/07/14 TTE W/DOPPLER COMPLETE completed 10/07/14 [id number] completed 10/07/14 COMPREHEN METABOLIC PANEL completed 10/18/14 LACTATE (LD) (LDH) ENZYME completed 10/18/14 COMPLETE CBC W/AUTO DIFF WBC completed 10/18/14 CT THORAX W/DYE completed 10/18/14 CT ABD & PELV W/CONTRAST completed 10/18/14 [id number]"INJECTION, HEPARIN SODIUM, (HEPARIN LOCK FLUSH), PER completed [...] 11/13/14 Encounters Encounter Location Date/Time Registered [facility] 12/16/14 1:56pm Registered Clinic [facility] 12/12/14 10:29am Registered Clinic [facility] 12/05/14 8:59am Discharged Recurring [facility] 12/02/14 12:58pm Registered [facility] 11/28/14 3:17pm Registered Clinic [facility] 11/26/14 1:26pm Discharged Recurring [facility] 11/14/14 11:45am Registered [facility] 11/13/14 3:59pm Discharged Inpatient [facility] 10/31/14 6:21pm Discharged Recurring [facility] 10/29/14 11:00am Registered Clinic [facility] 10/28/14 10:38am Registered Clinic [facility] 10/18/14 11:53am Registered [facility] 10/18/14 10:26am Registered [facility] 10/07/14 6:54am
--- OUTSIDE RECORDS SUMMARY | 2016-12-20 12:58 | XMS REPORT | Continuity of Care Document ---
Author Author [facility] Organization [facility] Address Unknown Phone Unavailable Support Name Relationship Address Phone PAULO DINH Caregiver [address] [place] [phone] BLAYNE CANDELARIA Next Of Kin Unknown [phone] Insurance Providers Payer Name Policy Number Subscriber Name Relationship Sweetien [id number] Pato Candelaria 20 Self Advance Directives Directive [...] Tuesday. If you need medical records from [facility], you will need to call [facility] and as for "HIM" ([phone]) Present to [facility] admissions in [place] on Tuesday morning for request for treatment [...] need care prior to Tuesday, return to [facility] ER or to [facility] in [place]. Suicide Prevention hotline numbers: , (Given to [...] F (96.8 - 99.1) Temperature (Calculated Celsius) 35.11321 degrees C (36.0 - 37.3) Pulse Rate [...] Hepatitis B Core Ab Total performed at [facility] Reference Lab, [address] [place] [address] Stopper Grinder Aster Marvni DO Hepatitis B Surface Ab Concentrat October [...] HCV infection. Hepatitis C RNA performed at [facility] Reference Lab, [address] [place], [place] [address] Stopper Grinder Aster Marvin DO Hepatitis C Viral RNA [...] 28, 2013 9:39am 1.0 % H 0-0 XV-Ror-N-Type Natriuretic Peptide April 10, 2014 12:08am 48 [...] 2014 12:00am 0-1 /HPF - Urine Specific [place] December 19, 2014 12:00am >=1.030 H - [...] 2014 10:20am Name: PATO CANDELARIA Unit #: [id number] : 1985 Sex: M Loc / Svc: MED DOS: 10/29/14 Signed Report #: [id number] DIAGNOSTIC IMAGING REPORT TYPE OF EXAM: CHEST, [...] completed 10/07/14 TTE W/DOPPLER COMPLETE completed 10/07/14 [id number] completed 10/07/14 COMPREHEN METABOLIC PANEL completed 10/18/14 LACTATE (LD) (LDH) ENZYME completed 10/18/14 COMPLETE CBC W/AUTO DIFF WBC completed 10/18/14 CT THORAX W/DYE completed 10/18/14 CT ABD & PELV W/CONTRAST completed 10/18/14 563634"INJECTION, HEPARIN SODIUM, (HEPARIN LOCK FLUSH), PER completed 192674"INFUSION, NORMAL SALINE SOLUTION , 250 CC" completed 10/18/14 461968"LOW OSMOLAR CONTRAST MATERIAL, 300-399 MG/ML IODINE C completed ROUTINE VENIPUNCTURE completed 10/28/14 CT ANGIOGRAPHY CHEST completed 10/28/14 FIBRIN DEGRADATION QUANT completed 10/28/14 FIBRINOGEN ACTIVITY completed 10/28/14 THROMBOPLASTIN TIME PARTIAL completed 10/28/14 690722"INJECTION, HEPARIN SODIUM, (HEPARIN LOCK FLUSH), PER completed 651858"INFUSION, NORMAL SALINE SOLUTION , 250 CC" completed 10/28/14 559485"LOW OSMOLAR CONTRAST MATERIAL, 300-399 MG/ML IODINE C [...] 11/13/14 Encounters Encounter Location Date/Time Registered [facility] 12/19/14 11:07am Registered [facility] 12/12/14 10:29am Registered [facility] 12/05/14 8:59am Registered [facility] 12/02/14 12:58pm Registered [facility] 11/28/14 3:17pm Registered [facility] 11/26/14 1:26pm Registered [facility] 11/13/14 3:59pm Discharged Recurring [facility] 11/03/14 8:09pm Discharged Inpatient [facility] 10/31/14 6:21pm Discharged Recurring [facility] 10/29/14 11:00am Registered Clinic [facility] 10/28/14 10:38am Registered Clinic [facility] 10/18/14 11:53am Registered [facility] 10/18/14 10:26am Registered [facility] 10/07/14 6:54am
--- OUTSIDE RECORDS SUMMARY | 2016-12-20 12:58 | XMS REPORT | Continuity of Care Document ---
Author Author [facility] Organization [facility] Address Unknown Phone Unavailable Support Name Relationship Address Phone SAFIA ESPINO MD Caregiver [address] [place] [address] [place] [address] AMY JOHNSON MD Caregiver [address] [place] [address] [place] [phone] JAIVD ARROYO Next Of Kin [address] [place] [address] NOK* Insurance Providers Payer Name Policy Number Subscriber Name [facility] [id number] Pato Candelaria 20 Self Advance Directives Directive [...] of your legs. 3.During office hours, call [phone] 4. After hours, please call [facility] at [phone], and have the hot punch press operator page your Surgeon IN THE EVENT [...] Has specimen been collected/obtained? Y Urine Specific [place] February 27, 2014 3:45pm >=1.030 H - [...] 20, 2014 9:16pm LAB TEST FORM REQUEST [id number] - HDL Cholesterol Direct April 06, 2013 [...] April 10, 2014 12:08am < 2 0-7 FH-Qst-C-Type Natriuretic Peptide April 10, 2014 12:08am 48 PG/ML N 0- 175 Rule in cut points: <50 years old=450; 50-75 years old=900; >75 years old=1800; When utilizing ProBNP rule-in cut points, adjustment for impaired renal function is typically not required. Blood Culture Blood January 19, 2014 1:45am NO GROWTH AFTER 5 DAYS Name: PATO CANDELARIA Unit #: [id number] : 1985 Sex: M Loc / Svc: SRG DOS: 04/09/14 Signed Report #: [id number] DIAGNOSTIC IMAGING REPORT TYPE OF EXAM: CHEST [...] MD Encounters Encounter Location Date/Time Discharged Inpatient [facility] 04/10/14 12:20am Departed Emergency Room [facility] 04/09/14 5:30pm Registered [facility] 04/08/14 7:59am Registered [facility] 03/20/14 2:10pm Registered [facility] 03/18/14 12:52pm Departed [facility] 02/27/14 2:40pm Discharged Recurring [facility] 02/27/14 12:39pm Registered [facility] 02/21/14 2:14pm Registered [facility] 02/14/14 1:32pm Departed Emergency Room [facility] 02/13/14 10:07pm Registered [facility] 02/10/14 9:24pm Registered [facility] 02/06/14 4:51pm Registered Clinic [facility] 02/05/14 8:19am Registered Clinic [facility] 01/21/14 10:40am Departed Emergency Room [facility] 01/19/14 12:47am Departed Clinic [facility] 01/16/14 11:12am Discharged Recurring [facility] 12/14/13 9:29am Recent Diagnosis Chest pain Chest pain Chest pain Non-Hodgkin lymphoma Deep vein thrombosis (DVT) Superior vena cava syndrome Methamphetamine abuse Inadequate anticoagulation
--- OUTSIDE RECORDS SUMMARY | 2016-12-20 12:58 | XMS REPORT | Continuity of Care Document ---
Author Author [facility] Organization [facility] Address Unknown Phone Unavailable Support Name Relationship Address Phone PAULO DINH Caregiver [address] [phone] BLAYNE CANDELARIA Next Of Kin Unknown [phone] Insurance Providers Payer Name Policy Number Subscriber Name Relationship [employer]im[employer] [id number] Pato Candelaria 20 Self Advance Directives Directive [...] Patient Instructions: You are being transferred to [facility] for further care that is not available at [facility]. General Information: We hope you get better soon. Condition at time of discharge: Fair Good you develop fever, nausea/vomiting/diarrhea (dehydration), chest pain or difficulty breathing, altered mental status, or any new concerns. General Information: Avoid taking buzw-kli-ahpxslw mzlglg-nnqr-julrfxbmai (ie. Prilosec "the little purple pill") and [...] F (96.8 - 99.1) Temperature (Calculated Celsius) 36.20012 degrees C (36.0 - 37.3) Pulse Rate [...] at [facility] Reference Lab, [address] [place] [address] Automobile Seat Cover Installer Aster Marvin DO Hepatitis B Surface Ab [...] performed at [facility] Reference Lab, [address] [place] [address] Automobile Seat Cover Installer Aster Marvin DO Hepatitis C Viral RNA [...] 28, 2013 9:39am 1.0 % H 0-0 OO-Vax-P-Type Natriuretic Peptide April 10, 2014 12:08am 48 [...] Has specimen been collected/obtained? Y Urine Specific [place] December 02, 2014 9:45am 1.015 - Urine [...] 2014 10:20am Name: PATO CANDELARIA Unit #: [id number] : 1985 Sex: M Loc / Svc: KRYSTYNA DOS: 12/12/14 Signed Report #: [id number] DIAGNOSTIC IMAGING REPORT TYPE OF EXAM: CHEST, [...] completed 10/07/14 TTE W/DOPPLER COMPLETE completed 10/07/14 [id number] completed 10/07/14 COMPREHEN METABOLIC PANEL completed 10/18/14 LACTATE (LD) (LDH) ENZYME completed 10/18/14 COMPLETE CBC W/AUTO DIFF WBC completed 10/18/14 CT THORAX W/DYE completed 10/18/14 CT ABD & PELV W/CONTRAST completed 10/18/14 698846"INJECTION, HEPARIN SODIUM, (HEPARIN LOCK FLUSH), PER completed 934312"INFUSION, NORMAL SALINE SOLUTION , 250 CC" completed 10/18/14 822506"LOW OSMOLAR CONTRAST MATERIAL, 300-399 MG/ML IODINE C completed ROUTINE VENIPUNCTURE completed 10/28/14 CT ANGIOGRAPHY CHEST completed 10/28/14 FIBRIN DEGRADATION QUANT completed 10/28/14 FIBRINOGEN ACTIVITY completed 10/28/14 THROMBOPLASTIN TIME PARTIAL completed 10/28/14 718247"INJECTION, HEPARIN SODIUM, (HEPARIN LOCK FLUSH), PER completed 667745"INFUSION, NORMAL SALINE SOLUTION , 250 CC" completed 10/28/14 409486"LOW OSMOLAR CONTRAST MATERIAL, 300-399 MG/ML IODINE C [...] 11/13/14 Encounters Encounter Location Date/Time Registered [facility] 12/16/14 1:56pm Registered Clinic [facility] 12/12/14 10:29am Registered Clinic [facility] 12/05/14 8:59am Discharged Recurring [facility] 12/02/14 12:58pm Registered Clinic [facility] 11/28/14 3:17pm Registered Clinic [facility] 11/26/14 1:26pm Discharged Recurring [facility] 11/14/14 11:45am Registered Clinic [facility] 11/13/14 3:59pm Discharged Inpatient [facility] 10/31/14 6:21pm Registered [facility] 10/29/14 11:00am Registered Clinic [facility] 10/28/14 10:38am Registered Clinic [facility] 10/18/14 11:53am Registered Clinic [facility] 10/18/14 10:26am Registered Clinic [facility] 10/07/14 6:54am
--- OUTSIDE RECORDS SUMMARY | 2016-12-20 12:59 | XMS REPORT | Continuity of Care Document ---
Author Author [facility] Organization [facility] Address Unknown Phone Unavailable Support Name Relationship Address Phone PAULO DINH Caregiver [address] [place] [phone] BLAYNE CANDELARIA Next Of Kin Unknown [phone] Insurance Providers Payer Name Policy Number Subscriber Name Relationship Mediminoon [id number] Pato Candelaria 20 Self Advance Directives Directive [...] with Dr Angulo in 1 week per [facility]. Patient Instructions: should symptoms return you could [...] F (96.8 - 99.1) Temperature (Calculated Celsius) 36.75151 degrees C (36.0 - 37.3) Pulse Rate [...] Hepatitis B Core Ab Total performed at [facility] Reference Lab, [address] [place] [address] Online Content Coordinator Aster Marvin DO Hepatitis B Surface Ab [...] HCV infection. Hepatitis C RNA performed at [facility] Reference Lab, [address] [place] [address] Online Content Coordinator Aster Marvin DO Hepatitis C Viral RNA [...] 28, 2013 9:39am 1.0 % H 0-0 SG-Ftb-E-Type Natriuretic Peptide April 10, 2014 12:08am 48 [...] Has specimen been collected/obtained? Y Urine Specific [place] December 02, 2014 9:45am 1.015 - Urine [...] 24 HOURS Name: PATO CANDELARIA Unit #: [id number] : 1985 Sex: M Loc / Svc: KRYSTYNA DOS: 12/12/14 Signed Report #: [id number] DIAGNOSTIC IMAGING REPORT TYPE OF EXAM: CHEST, [...] completed 10/07/14 TTE W/DOPPLER COMPLETE completed 10/07/14 [id number] completed 10/07/14 COMPREHEN METABOLIC PANEL completed 10/18/14 LACTATE (LD) (LDH) ENZYME completed 10/18/14 COMPLETE CBC W/AUTO DIFF WBC completed 10/18/14 CT THORAX W/DYE completed 10/18/14 CT ABD & PELV W/CONTRAST completed 10/18/14 885365"INJECTION, HEPARIN SODIUM, (HEPARIN LOCK FLUSH), PER completed 630687"INFUSION, NORMAL SALINE SOLUTION , 250 CC" completed 10/18/14 289336"LOW OSMOLAR CONTRAST MATERIAL, 300-399 MG/ML IODINE C completed ROUTINE VENIPUNCTURE completed 10/28/14 CT ANGIOGRAPHY CHEST completed 10/28/14 FIBRIN DEGRADATION QUANT completed 10/28/14 FIBRINOGEN ACTIVITY completed 10/28/14 THROMBOPLASTIN TIME PARTIAL completed 10/28/14 680163"INJECTION, HEPARIN SODIUM, (HEPARIN LOCK FLUSH), PER completed 817408"INFUSION, NORMAL SALINE SOLUTION , 250 CC" completed 10/28/14 414474"LOW OSMOLAR CONTRAST MATERIAL, 300-399 MG/ML IODINE C [...] 11/13/14 Encounters Encounter Location Date/Time Registered Clinic [facility] 12/12/14 10:29am Registered [facility] 12/12/14 10:21am Registered Clinic [facility] 12/05/14 8:59am Discharged Recurring [facility] 12/02/14 12:58pm Registered Clinic [facility] 11/28/14 3:17pm Registered Clinic [facility] 11/26/14 1:26pm Discharged Recurring [facility] 11/14/14 11:45am Registered Clinic [facility] 11/13/14 3:59pm Discharged Inpatient [facility] 10/31/14 6:21pm Discharged Recurring [facility] 10/29/14 11:00am Registered Clinic [facility] 10/28/14 10:38am Registered Clinic [facility] 10/18/14 11:53am Registered Clinic [facility] 10/18/14 10:26am Registered Clinic [facility] 10/07/14 6:54am
--- OUTSIDE RECORDS SUMMARY | 2016-12-20 12:59 | XMS REPORT | Continuity of Care Document ---
Author Author [facility] Organization [facility] Address Unknown Phone Unavailable Support Name Relationship Address Phone PAULO DINH Tressa Caregiver [address] [place] [phone] BLAYNE CANDELARIA Next Of Kin Unknown [phone] Insurance Providers Payer Name Policy Number Subscriber Name Relationship Devan Olsen H[employer] [id number] Pato Candelaria 20 Self Medikan [id number] Pato Candelaria 20 Self Advance Directives Directive [...] normal Follow Up Appointments: Follow up with rnfa 2 weeks in clinic. Call [facility] at [phone] to schedule. Patient Instructions: per protocol Notify [...] F (96.8 - 99.1) Temperature (Calculated Celsius) 36.54195 degrees C (36.0 - 37.3) Pulse Rate [...] Hepatitis B Core Ab Total performed at [facility] Reference Lab, [address] [place] [address] Supervisor Powdered Sugar Aster Marvin DO Hepatitis B Surface Ab [...] HCV infection. Hepatitis C RNA performed at [facility] Reference Lab, [address] [place] [address] Supervisor Powdered Sugar Aster Marvin DO Hepatitis C Viral RNA [...] 28, 2013 9:39am 1.0 % H 0-0 XG-Teq-W-Type Natriuretic Peptide April 10, 2014 12:08am 48 [...] Has specimen been collected/obtained? Y Urine Specific [place] December 02, 2014 9:45am 1.015 - Urine [...] 5 DAYS Name: PATO CANDELARIA Unit #: [id number] : 1985 Sex: M Loc / Svc: KRYSTYNA DOS: 12/05/14 Signed Report #: [id number] DIAGNOSTIC IMAGING REPORT TYPE OF EXAM: CT [...] Provider(s) PET IMAGE W/CT SKULL-THIGH completed 09/11/14 [id number]"FLUORODEOXYGLUCOSE F-18 FDG, DIAGNOSTIC, PER STUDY DO completed GATED HEART PLANAR SINGLE completed 10/07/14 TTE W/DOPPLER COMPLETE completed 10/07/14 [id number] completed 10/07/14 COMPREHEN METABOLIC PANEL completed 10/18/14 LACTATE (LD) (LDH) ENZYME completed 10/18/14 COMPLETE CBC W/AUTO DIFF WBC completed 10/18/14 CT THORAX W/DYE completed 10/18/14 CT ABD & PELV W/CONTRAST completed 10/18/14 612919"INJECTION, HEPARIN SODIUM, (HEPARIN LOCK FLUSH), PER completed 233437"INFUSION, NORMAL SALINE SOLUTION , 250 CC" completed 10/18/14 868954"LOW OSMOLAR CONTRAST MATERIAL, 300-399 MG/ML IODINE C completed ROUTINE VENIPUNCTURE completed 10/28/14 CT ANGIOGRAPHY CHEST completed 10/28/14 FIBRIN DEGRADATION QUANT completed 10/28/14 FIBRINOGEN ACTIVITY completed 10/28/14 THROMBOPLASTIN TIME PARTIAL completed 10/28/14 652345"INJECTION, HEPARIN SODIUM, (HEPARIN LOCK FLUSH), PER completed 188601"INFUSION, NORMAL SALINE SOLUTION , 250 CC" completed 10/28/14 600070"LOW OSMOLAR CONTRAST MATERIAL, 300-399 MG/ML IODINE C [...] completed 11/13/14 Encounters Encounter Location Date/Time Registered [facility] 12/05/14 8:59am Registered [facility] 12/03/14 8:30am Discharged [facility] 12/02/14 12:58pm Registered [facility] 11/28/14 3:17pm Registered [facility] 11/26/14 1:26pm Discharged Recurring [facility] 11/14/14 11:45am Registered [facility] 11/13/14 3:59pm Discharged Inpatient [facility] 10/31/14 6:21pm Registered [facility] 10/29/14 11:00am Registered [facility] 10/28/14 10:38am Registered [facility] 10/18/14 11:53am Registered [facility] 10/18/14 10:26am Registered [facility] 10/07/14 6:54am Registered [facility] 09/11/14 7:06am
--- OUTSIDE RECORDS SUMMARY | 2016-12-20 12:59 | XMS REPORT | Continuity of Care Document ---
Author Author [facility] Organization [facility] Address Unknown Phone Unavailable Support Name Relationship Address Phone PAULO DINH Tressa Caregiver [address] [place] [phone] Insurance Providers Payer Name Policy Number Subscriber Name Relationship Jayashree [id number] Pato Candelaria 20 Self Advance Directives Directive [...] F (96.8 - 99.1) Temperature (Calculated Celsius) 36.88535 degrees C (36.0 - 37.3) Pulse Rate [...] Hepatitis B Core Ab Total performed at [facility] Reference Lab, [address] [place] [address] Loan Servicing Representative Aster Marvin DO Hepatitis B Surface Ab [...] HCV infection. Hepatitis C RNA performed at [facility] Reference Lab, [address] [place] [address] Loan Servicing Representative Aster Marvin DO Hepatitis C Viral RNA [...] 28, 2013 9:39am 1.0 % H 0-0 XX-Cro-U-Type Natriuretic Peptide April 10, 2014 12:08am 48 [...] Has specimen been collected/obtained? Y Urine Specific [place] October 31, 2014 2:20pm 1.025 - Has [...] 5 DAYS Name: PATO CANDELARIA Unit #: [id number] : 1985 Sex: M [place] [facility] [facility] DOS: 10/28/14 Signed Report #: [id number] DIAGNOSTIC IMAGING REPORT TYPE OF EXAM: CTA [...] CT ABD & PELV W/CONTRAST completed 09/04/14 313758"INJECTION, HEPARIN SODIUM, (HEPARIN LOCK FLUSH), PER completed 567983"INFUSION, NORMAL SALINE SOLUTION , 250 CC" completed 09/04/14 555960"LOW OSMOLAR CONTRAST MATERIAL, 200-299 MG/ML IODINE C completed 125582"LOW OSMOLAR CONTRAST MATERIAL, 300-399 MG/ML IODINE C completed COMPREHEN METABOLIC PANEL completed 09/06/14 LACTATE (LD) (LDH) ENZYME completed 09/06/14 ASSAY OF MAGNESIUM completed 09/06/14 COMPLETE CBC W/AUTO DIFF WBC completed 09/06/14 PET IMAGE W/CT SKULL-THIGH completed 09/11/14 793928"FLUORODEOXYGLUCOSE F-18 FDG, DIAGNOSTIC, PER STUDY DO completed COMPREHEN METABOLIC PANEL completed 10/18/14 LACTATE (LD) (LDH) ENZYME completed 10/18/14 COMPLETE CBC W/AUTO DIFF WBC completed 10/18/14 CT THORAX W/DYE completed 10/18/14 CT ABD & PELV W/CONTRAST completed 10/18/14"INJECTION, HEPARIN SODIUM, (HEPARIN LOCK FLUSH), PER completed 556836"INFUSION, NORMAL SALINE SOLUTION , 250 CC" completed 10/18/14 516274"LOW OSMOLAR CONTRAST MATERIAL, 300-399 MG/ML IODINE C completed Encounters Encounter Location Date/Time Discharged [facility] 10/29/14 11:00am Registered [facility] 10/28/14 10:38am Registered [facility] 10/28/14 8:41am Registered [facility] 10/18/14 11:53am Registered [facility] 10/18/14 10:26am Registered [facility] 10/07/14 6:54am Registered [facility] 09/11/14 7:06am Registered [facility] 09/06/14 11:04am Registered [facility] 09/04/14 10:13am Registered [facility] 08/09/14 9:27am Recent Diagnosis Superior vena cava syndrome Atrial fibrillation, new onset Tobacco abuse
--- OUTSIDE RECORDS SUMMARY | 2016-12-20 12:59 | XMS REPORT | Continuity of Care Document ---
Author Author [facility] Organization [facility] Address Unknown Phone Unavailable Support Name Relationship Address Phone PAULO DINH Caregiver [address] [place] [phone] BLAYNE CANDELARIA Next Of Kin Unknown [phone] Insurance Providers Payer Name Policy Number Subscriber Name Relationship Sweetien [id number] Pato Candelaria 20 Self Advance Directives Directive [...] need care prior to Tuesday, return to [facility] or to [facility] in [place]. Suicide Prevention hotline numbers: , (Given to [...] F (96.8 - 99.1) Temperature (Calculated Celsius) 35.40010 degrees C (36.0 - 37.3) Pulse Rate [...] Hepatitis B Core Ab Total performed at [facility] Reference Lab, [address] [place] [address] Traffic Survey Technician Aster Marvin DO Hepatitis B Surface Ab [...] HCV infection. Hepatitis C RNA performed at [facility] Reference Lab, [facility] [place] [address] Traffic Survey Technician Aster Marvin DO Hepatitis C Viral RNA [...] 28, 2013 9:39am 1.0 % H 0-0 PB-Pof-N-Type Natriuretic Peptide April 10, 2014 12:08am 48 [...] 2014 12:00am 0-1 /HPF - Urine Specific [place] December 19, 2014 12:00am >=1.030 H - [...] 2014 10:20am Name: PATO CANDELARIA Unit #: [id number] : 1985 Sex: M Loc / Svc: MED DOS: 10/29/14 Signed Report #: [id number] DIAGNOSTIC IMAGING REPORT TYPE OF EXAM: CHEST, [...] completed 10/07/14 TTE W/DOPPLER COMPLETE completed 10/07/14 [id number] completed 10/07/14 COMPREHEN METABOLIC PANEL completed 10/18/14 LACTATE (LD) (LDH) ENZYME completed 10/18/14 COMPLETE CBC W/AUTO DIFF WBC completed 10/18/14 CT THORAX W/DYE completed 10/18/14 CT ABD & PELV W/CONTRAST completed 10/18/14 738648"INJECTION, HEPARIN SODIUM, (HEPARIN LOCK FLUSH), PER completed 443620"INFUSION, NORMAL SALINE SOLUTION , 250 CC" completed 10/18/14 971757"LOW OSMOLAR CONTRAST MATERIAL, 300-399 MG/ML IODINE C completed ROUTINE VENIPUNCTURE completed 10/28/14 CT ANGIOGRAPHY CHEST completed 10/28/14 FIBRIN DEGRADATION QUANT completed 10/28/14 FIBRINOGEN ACTIVITY completed 10/28/14 THROMBOPLASTIN TIME PARTIAL completed 10/28/14547019"INJECTION, HEPARIN SODIUM, (HEPARIN LOCK FLUSH), PER completed 003"INFUSION, NORMAL SALINE SOLUTION , 250 CC" completed 10/28/14120912"LOW OSMOLAR CONTRAST MATERIAL, 300-399 MG/ML IODINE C [...] completed 11/13/14 Encounters Encounter Location Date/Time Registered [facility] 12/19/14 11:07am Registered [facility] 12/12/14 10:29am Registered [facility] 12/05/14 8:59am Registered [facility] 12/02/14 12:58pm Registered [facility] 11/28/14 3:17pm Registered [facility] 11/26/14 1:26pm Registered [facility] 11/13/14 3:59pm Discharged [facility] 11/03/14 8:09pm Discharged Inpatient [facility] 10/31/14 6:21pm Discharged [facility] 10/29/14 11:00am Registered [facility] 10/28/14 10:38am Registered [facility] 10/18/14 11:53am Registered [facility] 10/18/14 10:26am Registered [facility] 10/07/14 6:54am
--- OUTSIDE RECORDS SUMMARY | 2016-12-20 12:59 | XMS REPORT | Continuity of Care Document ---
Author Author [facility] Organization [facility] Address Unknown Phone Unavailable Support Name Relationship Address Phone PAULO DINH Caregiver [address] [place] [phone] BLAYNE CANDELARIA Next Of Kin Unknown [phone] Insurance Providers Payer Name Policy Number Subscriber Name Relationship Sweetien [id number] Pato Candelaria 20 Self Advance Directives Directive [...] with Dr. Henning in 4 weeks. Call [phone] to schedule. FOLLOW UP APPOINTMENT IS ON [...] F (96.8 - 99.1) Temperature (Calculated Celsius) 35.04140 degrees C (36.0 - 37.3) Pulse Rate [...] Hepatitis B Core Ab Total performed at [facility], [address] [place] [address] Push Connector Assembler Aster Marvin DO Hepatitis B Surface Ab [...] HCV infection. Hepatitis C RNA performed at [facility], [address] [place] [address] Push Connector Assembler Aster Marvin DO Hepatitis C Viral RNA [...] 28, 2013 9:39am 1.0 % H 0-0 CJ-Imr-H-Type Natriuretic Peptide April 10, 2014 12:08am 48 [...] 2014 12:00am 0-1 /HPF - Urine Specific [place] December 19, 2014 12:00am >=1.030 H - [...] 2014 10:20am Name: PATO CANDELARIA Unit #: [id number] : 1985 Sex: M Loc / Svc: MED DOS: 10/29/14 Signed Report #: [id number] DIAGNOSTIC IMAGING REPORT TYPE OF EXAM: CHEST, [...] completed 10/07/14 TTE W/DOPPLER COMPLETE completed 10/07/14 [id number] completed 10/07/14 COMPREHEN METABOLIC PANEL completed 10/18/14 LACTATE (LD) (LDH) ENZYME completed 10/18/14 COMPLETE CBC W/AUTO DIFF WBC completed 10/18/14 CT THORAX W/DYE completed 10/18/14 CT ABD & PELV W/CONTRAST completed 10/18/14 [id number]"INJECTION, HEPARIN SODIUM, (HEPARIN LOCK FLUSH), PER completed 199975"INFUSION, NORMAL SALINE SOLUTION , 250 CC" completed 10/18/14 [id number]"LOW OSMOLAR CONTRAST MATERIAL, 300-399 MG/ML IODINE C completed ROUTINE VENIPUNCTURE completed 10/28/14 CT ANGIOGRAPHY CHEST completed 10/28/14 FIBRIN DEGRADATION QUANT completed 10/28/14 FIBRINOGEN ACTIVITY completed 10/28/14 THROMBOPLASTIN TIME PARTIAL completed 10/28/14 156813"INJECTION, HEPARIN SODIUM, (HEPARIN LOCK FLUSH), PER completed 629279"INFUSION, NORMAL SALINE SOLUTION , 250 CC" completed 10/28/14 [id number]"LOW OSMOLAR CONTRAST MATERIAL, 300-399 MG/ML IODINE C [...] Registered [facility] 12/19/14 11:07am Registered Clinic [facility] 12/12/14 10:29am Registered Clinic [facility] 12/05/14 8:59am Registered [facility] 12/02/14 12:58pm Registered Clinic [facility] 11/28/14 3:17pm Registered Clinic [facility] 11/26/14 1:26pm Registered Clinic [facility] 11/13/14 3:59pm Discharged Recurring [facility] 11/03/14 8:09pm Discharged Inpatient [facility] 10/31/14 6:21pm Discharged Recurring [facility] 10/29/14 11:00am Registered Clinic [facility] 10/28/14 10:38am Registered Clinic [facility] 10/18/14 11:53am Registered Clinic [facility] 10/18/14 10:26am Registered [facility] 10/07/14 6:54am
--- OUTSIDE RECORDS SUMMARY | 2016-12-20 12:59 | XMS REPORT | Continuity of Care Document ---
Author Author [facility] Organization [facility] Address Unknown Phone Unavailable Support Name Relationship Address Phone SAFIA ESPINO MD Caregiver [address] [place] [address] [place] [address] AMY JOHNSON MD Caregiver [address] [place] [address] [place] [phone] JAVID ARROYO Next Of Kin [address] [place] [address] NOK* Insurance Providers Payer Name Policy Number Subscriber Name Relationship [facility] [id number] Pato Candelaria 20 Self Advance Directives Directive [...] of your legs. 3.During office hours, call [phone] 4. After hours, please call [facility] at [phone], and have the air hoist operator page your Surgeon IN THE EVENT [...] 20, 2014 9:16pm LAB TEST FORM REQUEST [id number] - Lactate Dehydrogenase March 20, 2014 2:45pm [...] 28, 2013 9:39am 1.0 % H 0-0 DW-Nuu-K-Type Natriuretic Peptide April 10, 2014 12:08am 48 [...] Has specimen been collected/obtained? Y Urine Specific [place] February 27, 2014 3:45pm >=1.030 H - [...] MD Encounters Encounter Location Date/Time Discharged Inpatient [facility] 04/10/14 12:20am Departed Emergency Room [facility] 04/09/14 5:30pm Registered [facility] 04/08/14 7:59am Registered [facility] 03/20/14 2:10pm Registered Clinic [facility] 03/18/14 12:52pm Departed Clinic [facility] 02/27/14 2:40pm Registered [facility] 02/27/14 12:39pm Registered Clinic [facility] 02/21/14 2:14pm Registered [facility] 02/14/14 1:32pm Departed Emergency Room [facility] 02/13/14 10:07pm Registered [facility] 02/10/14 9:24pm Registered Clinic [facility] 02/06/14 4:51pm Registered Clinic [facility] 02/05/14 8:19am Registered Clinic [facility] 01/21/14 10:40am Departed Emergency Room [facility] 01/19/14 12:47am Departed Clinic [facility] 01/16/14 11:12am Discharged [facility] 12/14/13 9:29am Recent Diagnosis Chest pain Chest pain Chest pain Non-Hodgkin lymphoma Deep vein thrombosis (DVT) Superior vena cava syndrome Methamphetamine abuse Inadequate anticoagulation
[2016-12-20] MEDS ORDERED: VITA1CAP PO (13:00)
[2016-12-20] MEDS ORDERED: CITA20TA9 PO (13:00)
[2016-12-20] MEDS ORDERED: IBUP200C62 PO (13:00)
--- OUTSIDE RECORDS SUMMARY | 2016-12-20 13:00 | XMS REPORT | Continuity of Care Document ---
Author Author [facility] Organization [facility] Address Unknown Phone Unavailable Support Name Relationship Address Phone PAULO DINH Trsesa Caregiver [address] [place] [phone] Insurance Providers Payer Name Policy Number Subscriber Name Relationship Jayashree [id number] Pato Candelaria 20 Self Advance Directives Directive [...] F (96.8 - 99.1) Temperature (Calculated Celsius) 36.88607 degrees C (36.0 - 37.3) Pulse Rate [...] B Core Ab Total performed at [facility], [address] [place] [address] Limousine And Hearse Upholsterer Aster Marvin DO Hepatitis B Surface Ab [...] infection. Hepatitis C RNA performed at [facility], [address] [place] [address] Limousine And Hearse Upholsterer Aster Marvin DO Hepatitis C Viral RNA [...] 28, 2013 9:39am 1.0 % H 0-0 NO-Sog-H-Type Natriuretic Peptide April 10, 2014 12:08am 48 [...] Has specimen been collected/obtained? Y Urine Specific [place] October 31, 2014 2:20pm 1.025 - Has [...] 5 DAYS Name: PATO CANDELARIA Unit #: [id number] : 1985 Sex: M Loc / Svc: KRYSTYNA DOS: 10/28/14 Signed Report #: [id number] DIAGNOSTIC IMAGING REPORT TYPE OF EXAM: CTA [...] CONTRAST MATERIAL, 200-299 MG/ML IODINE C completed 063088"LOW OSMOLAR CONTRAST MATERIAL, 300-399 MG/ML IODINE C completed COMPREHEN METABOLIC PANEL completed 09/06/14 LACTATE (LD) (LDH) ENZYME completed 09/06/14 ASSAY OF MAGNESIUM completed 09/06/14 COMPLETE CBC W/AUTO DIFF WBC completed 09/06/14 PET IMAGE W/CT SKULL-THIGH completed 09/11/14 [id number]"FLUORODEOXYGLUCOSE F-18 FDG, DIAGNOSTIC, PER STUDY DO completed COMPREHEN METABOLIC PANEL completed 10/18/14 LACTATE (LD) (LDH) ENZYME completed 10/18/14 COMPLETE CBC W/AUTO DIFF WBC completed 10/18/14 CT THORAX W/DYE completed 10/18/14 CT ABD & PELV W/CONTRAST completed 10/18/14 [id number]"INJECTION, HEPARIN SODIUM, (HEPARIN LOCK FLUSH), PER completed 363051"INFUSION, NORMAL SALINE SOLUTION , 250 CC" completed 10/18/14 561475"LOW OSMOLAR CONTRAST MATERIAL, 300-399 MG/ML IODINE C completed Encounters Encounter Location Date/Time Registered [facility] 11/03/14 8:09pm Discharged Inpatient [facility] 10/31/14 6:21pm Discharged [facility] 10/29/14 11:00am Registered [facility] 10/28/14 10:38am Registered [facility] 10/28/14 8:41am Registered [facility] 10/18/14 11:53am Registered [facility] 10/18/[address] [facility] 10/07/14 6:54am Registered Clinic [facility] 09/11/14 7:06am Registered [facility] 09/06/14 11:04am Registered [facility] 09/04/[address] [facility] 08/09/14 9:27am
--- OUTSIDE RECORDS SUMMARY | 2016-12-20 13:00 | XMS REPORT | Continuity of Care Document ---
Author Author [facility] Organization [facility] Address Unknown Phone Unavailable Support Name Relationship Address Phone SAY ARROYO MD Caregiver [address] [place] [address] Unavailable JAVID ARROYO Next Of Kin [address] [place] [address] NOK* Insurance Providers Payer Name Policy Number Subscriber Name Relationship Sweetien [id number] Pato Candelaria 20 Self Advance Directives Directive [...] see patient instructions After hours, please call [facility] at [phone] and have the operator helper page Dr. Brennan or the covering surgeon. *In the event of an emergency, seek medical care at the nearest emergency room.* Condition at time of discharge: Good Plan of Care Discharge Date 04/10/14 7:00pm Disposition 02 TO [place] [facility] Condition at Discharge Improved Instructions/Education Provided Angina [...] F (96.8 - 99.1) Temperature (Calculated Celsius) 35.33678 degrees C (36.0 - 37.3) Pulse Rate [...] Has specimen been collected/obtained? Y Urine Specific [place] February 27, 2014 3:45pm >=1.030 H - [...] 20, 2014 9:16pm LAB TEST FORM REQUEST [id number] - HDL Cholesterol Direct April 06, 2013 [...] April 10, 2014 12:08am < 2 0-7 VM-Whx-D-Type Natriuretic Peptide April 10, 2014 12:08am 48 PG/ML N 0- 175 Rule in cut points: <50 years old=450; 50-75 years old=900; >75 years old=1800; When utilizing ProBNP rule-in cut points, adjustment for impaired renal function is typically not required. Blood Culture Blood January 19, 2014 1:45am NO GROWTH AFTER 5 DAYS Name: PATO CANDELARIA Unit #: [id number] : 1985 Sex: M [place] [facility] DOS: 04/09/14 Signed Report #: [id number] DIAGNOSTIC IMAGING REPORT TYPE OF EXAM: CHEST [...] Encounters Encounter Location Date/Time Departed Emergency Room [facility] 05/30/14 11:34pm Discharged Inpatient [facility] 04/10/14 12:20am Departed Emergency Room [facility] 04/09/14 5:30pm Registered Clinic [facility] 04/08/14 7:59am Discharged Recurring [facility] 03/20/14 2:10pm Registered Clinic [facility] 03/18/14 12:52pm Discharged [facility] 01/16/14 9:36am Recent Diagnosis
--- OUTSIDE RECORDS SUMMARY | 2016-12-20 13:00 | XMS REPORT | Continuity of Care Document ---
Author Author [facility] Organization [facility] Address Unknown Phone Unavailable Support Name Relationship Address Phone PAULO DINH Caregiver [address] [place] [phone] BLAYNE CANDELARIA Next Of Kin Unknown [phone] Insurance Providers Payer Name Policy Number Subscriber Name Relationship [employer] [id number] Pato Candelaria 20 Self Advance Directives Directive [...] F (96.8 - 99.1) Temperature (Calculated Celsius) 36.57546 degrees C (36.0 - 37.3) Pulse Rate [...] Total performed at [facility], [address] [place] [address] Boiler Tester Aster Marvin DO Hepatitis B Surface Ab [...] RNA performed at [facility], [address] [place] [address] Boiler Tester Aster Marvin DO Hepatitis C Viral RNA [...] 28, 2013 9:39am 1.0 % H 0-0 ID-Mti-J-Type Natriuretic Peptide April 10, 2014 12:08am 48 [...] 2014 12:00am 0-1 /HPF - Urine Specific [place] December 19, 2014 12:00am >=1.030 H - [...] 2014 10:20am Name: PATO CANDELARIA Unit #: [id number] : 1985 Sex: M Loc / Svc: MED DOS: 10/29/14 Signed Report #: [id number] DIAGNOSTIC IMAGING REPORT TYPE OF EXAM: CHEST, [...] completed 10/07/14 TTE W/DOPPLER COMPLETE completed 10/07/14 [id number] completed 10/07/14 COMPREHEN METABOLIC PANEL completed 10/18/14 LACTATE (LD) (LDH) ENZYME completed 10/18/14 COMPLETE CBC W/AUTO DIFF WBC completed 10/18/14 CT THORAX W/DYE completed 10/18/14 CT ABD & PELV W/CONTRAST completed 10/18/14 794216"INJECTION, HEPARIN SODIUM, (HEPARIN LOCK FLUSH), PER completed 100639"INFUSION, NORMAL SALINE SOLUTION , 250 CC" completed 10/18/14 941142"LOW OSMOLAR CONTRAST MATERIAL, 300-399 MG/ML IODINE C completed ROUTINE VENIPUNCTURE completed 10/28/14 CT ANGIOGRAPHY CHEST completed 10/28/14 FIBRIN DEGRADATION QUANT completed 10/28/14 FIBRINOGEN ACTIVITY completed 10/28/14 THROMBOPLASTIN TIME PARTIAL completed 10/28/14 816183"INJECTION, HEPARIN SODIUM, (HEPARIN LOCK FLUSH), PER completed 142221"INFUSION, NORMAL SALINE SOLUTION , 250 CC" completed 10/28/14 820823"LOW OSMOLAR CONTRAST MATERIAL, 300-399 MG/ML IODINE C [...] completed 11/13/14 Encounters Encounter Location Date/Time Registered [facility] 12/19/14 11:07am Registered [facility] 12/12/14 10:29am Registered Clinic [facility] 12/05/14 8:59am Registered [facility] 12/02/14 12:58pm Registered [facility] 11/28/14 3:17pm Registered [facility] 11/26/14 1:26pm Registered Clinic [facility] 11/13/14 3:59pm Discharged Recurring [facility] 11/03/14 8:09pm Discharged Inpatient [facility] 10/31/14 6:21pm Discharged Recurring [facility] 10/29/14 11:00am Registered [facility] 10/28/14 10:38am Registered Clinic [facility] 10/18/14 11:53am Registered [facility] 10/18/14 10:26am Registered [facility] 10/07/14 6:54am
--- NOTE | 2016-12-20 13:39 | ERPDOC ---
Departure Disposition Decision Date: Dec 20, 2016 Disposition Decision Time: 15:13 Disposition: 01 DISCHARGED HOME, SELF-CARE Impression Impression Impression: Primary Impression: Contusion of right arm Encounter type: initial encounter Qualified Codes: S40.021A - Contusion of right upper arm, initial encounter Additional Impression: Left arm swelling Severity: Mild Condition: Improved Seen By: Physician only Referrals: [facility] 1 Day Patient Instructions: Contusion in Adults (ED), Edema (ED) Problems/Meds/Labs Reviewed?: Yes Medications reviewed and manag: Yes Follow up care ordered?: Yes Mental Status: Alert, Oriented HPI - Upper Extremity General Chief Complaint: Upper Extremity Pain Stated Complaint: POSS BLOOD CLOTS Time Seen by MD: 12:41 Source: patient (Patient presents to the ER with the Complaint of left arm swelling and a contusion to his right arm, for approximately 7-10 days. Patient is concerned about DVT, which has occurred in his upper extremities before, secondary to Non-Hodgkins lymphoma, which the patient states is in remission) Exam Limitations: no limitations HPI - Upper Extremity Occurred At: home Onset/Timing: Changing over time Duration: other Pain/Severity Scale: Now & Worst: Unable to Rate Severity: mild Pain/Injury Location: bilateral arm Method of Injury/Context: other (no injury) Hx of Similar Symptoms: Yes Quality: aching Allergies: Coded Allergies: nickel (Verified Allergy, Mild, RASH, 12/20/16) Past History Past Medical History Metabolic: cancer ENMT: dental problems Cardiac: other Respiratory: asthma Hematologic: DVT Psychological: depression, drug abuse Surgical History General: other Cardiac: other Family History Family PMH: FOUND: cancer, depression, drug abuse, hypertension, other Vaccines Hx Influenza Vaccination: No Hx Pneumococcal Vaccination: No Hx Tetanus Diptheria: No Hx Tetanus, Diptheria, Pertuss: No Social History Smoking Status: Current every day smoker Does patient use chewing tobac: No Second Hand Exposure: No Substance Use Type: does not use Substance last used: unknown Alcohol Intake: none Sexuality: female partner Housing: house Household Members: significant other Service: No Occupational Hazard: No Advance Directives: Yes Full Code Record Review Pertinent history updated: Yes Review of Systems Constitutional Constitutional: DENIES: chills, fever Eyes Lids/Accessories: DENIES: erythema, swelling ENMT Ears: DENIES: erythema, pain Balance: DENIES: ataxia, vertigo Sinuses: DENIES: congestion, rhinorrhea Mouth/Throat: DENIES: sore throat Cardiovascular Cardiac: DENIES: chest pain, dyspnea on exertion, orthopnea Rhythm/Rate: DENIES: tachycardia Pulmonary Respiratory: DENIES: cough, dyspnea, sputum GI Upper Abdomen: DENIES: nausea, pain, vomiting Lower Abdomen: DENIES: constipation, diarrhea, pain General: DENIES: dysuria Musculoskeletal General: pain, see HPI, DENIES: cramps, weakness Integumentary Skin: DENIES: color change, itching, rash Neurological General: DENIES: ataxia, change in strength, headache, numbness, poor coordination, seizures, syncope, vertigo, weakness Psychiatric Psychiatric: DENIES: anxiety, depression, nervousness Hematologic/Lymphatic Hematologic/Lymphatic: DENIES: anemia Allergic/Immunological Allergic/Immunoligical: DENIES: sneezing All other Systems All Other Systems: Reviewed and Negative Physical Exam General General Nourishment: well nourished, well developed, appears stated age, no acute distress, adult General Body Habitus: well groomed Vitals and Pain First Documented Vital Signs Date Time Temp Pulse Resp B/P Pulse Ox O2 Delivery O2 Flow Rate FiO2 12/20/16 12:43 98.6 85 16 145/96 95 Room Air Weight: Kilograms: 81.600 Height (feet): 5 Height (inches): 8.00 Triage Pain Scale: RN VS reviewed by Provider: Yes Eyes (brief) Eyes Brief: found: EOMI, PERRL ENMT (brief) ENMT Brief: FOUND: mucosa moist Neck (brief) Neck: FOUND: trachea midline, NOT FOUND: tenderness, tracheal deviation Respiratory (brief) Respiratory: FOUND: clear all amor, equal bilaterally Cardiovascular (brief) Cardiac: FOUND: regular rate, regular rhythm Capillary Refill: <2 sec Pulses: all distal extremities, equal, strong Abdomen (brief) Abdominal Brief: FOUND: bowel normo active x4, soft, NOT FOUND: distended, tender Lymphatic (brief) Lymphatic Brief: NOT FOUND: adenopathy Musculoskeletal (brief) Musculoskeletal Brief: FOUND: other, tenderness (refer to HPI), NOT FOUND: spasm Integumentary (brief) Integumentary Brief: FOUND: pink, warm Neurologic (brief) Neurological Brief: FOUND: CN w/o gross def to obs, gait w/o gross def to obs, motor-no gross deficits, sensory-no gross deficits, NOT FOUND: ataxia Psychiatric (brief) Psychiatric Brief: FOUND: alert, attentive, normal affect, oriented Differential Diagnoses Considering: Contusion, DVT, Sprain, Strain, Other Progress Results/Orders Orders Procedure Category Date Status Time Us Venous Duplex, US 12/20/16 Resulted Upper Ext Bi Progress Progress Patient refused labs Ultrasound US : Reason for Exam: Possible Bilateral Upper Extremity DVT'd Ultrasound: Venous Doppler (Upper Extremities ) HUMBLE ARCINIEGA DO Dec 20, 2016 13:39
--- NOTE | 2016-12-20 13:45 | NUR ---
SONO SONO IN ROOM TO DO EXAM
--- NOTE | 2016-12-20 14:26 | NUR ---
SONO SONO COMPLETE.
--- NOTE | 2016-12-20 14:39 | DI ---
Indication: ITS.REASON: Histoy of Prior DVT / No Hodgkins lymphoma in remission PROCEDURE: US VENOUS DUPLEX, UPPER EXT BI: Encounter: Initial Comparison: None FINDINGS: There is no evidence for acute deep venous thrombosis in the either arm. The bilateral internal jugular, subclavian, axillary and paired brachial veins were evaluated; compression and augmentation were applied where possible. In addition, color and pulsed Doppler demonstrate appropriate spontaneous flow, cardiac pulsatility and variation with respiration. IMPRESSION: No evidence of acute DVT in either upper extremity. .
[2016-12-20 15:18] VITALS: BP 137/88; PULSE 85; RESP 16; TEMP 98.6; O2SAT 95
== END 2016-12-20 15:18 | disposition home or self-care (01) ==
LOC: ED 12:36
DX: M79.89 Other specified soft tissue disorders (principal); S40.021A Contusion of right upper arm, initial encounter; X58.XXXA Exposure to other specified factors, initial encounter; Y93.9 Activity, unspecified; Y92.009 Unspecified place in unspecified non-institutional (private) residence as the place of occurrence of the external cause; Y99.8 Other external cause status